=== PATIENT | female | born 1950 | race Caucasian/White ===

== ENCOUNTER 2016-12-04 15:20 | Observation (INO) | payer MEDICARE ==
[~2016-12-04] VITALS: Ht 165.1 cm; Wt 85.4 kg
[~2016-12-04 15:20] MED LIST: ACETAMINOPHEN325 M3 PO; ASPIRIN ADULT L81 M2 PO; AUGMENTIN1 TA1 PO; AZITHROMYCIN250 MG PO; BACTRIM DS 8001 TA1 PO; BACTRIM DS 8001 TAB PO; BUMETANIDE2 MG PO; BUMEX 1MG TAB1 MG PO; CEFDINIR 300MG300 MG PO; CHANTIX1 TAB PO; CIPRO 250MG TA250 MG; CLARITIN 10MG T10 MG PO; CORTEF5 MG PO; DETROL LA 2 MG C2 MG PO; DIAZEPAM5 M1 PO; DIFLUCAN 100MG100 MG PO; DIPHENHYDRAMINE25 M3 PO; DOCUSATE SODIU100 MG PO; DOXYCYCLINE HY100 M4 PO; DOXYCYCLINE100 M6 PO; DUONEB 3 MG/3 ML3 ML IH; ESCITALOPRAM10 M1 PO; FERROUS SULFATE27 MG PO; FLONASE 50 MCG16 GM; FLUCONAZOLE 10100 MG PO; GABAPENTIN300 MG PO; GOOD SENSE400 MG/5 M PO; HYDROCORTISONE5 MG; HYDROCORTISONE5 MG PO; IPRATROPIUM BROM3 M1 IH; IRON TABLETS325 MG PO; IRON324 MG PO; KLOR-CON M2020 ME1 PO; KLOR-CON M2020 MEQ PO; LINZESS145 MCG PO; LOPRESSOR 25MG.25 MG PO; LYRICA25 MG PO; LYRICA75 MG PO; MACROBID100 M3 PO; METOPROLOL25 MG PO; MIRALAX(PO17 GM/1 PA PO; MIRALAX17 GM/DOSE PO; MUCINEX ER600 MG PO; MUCUS ER600 MG PO; MYRBETRIQ50 MG PO; NYSTATIN 1 ML1 M1; NYSTATIN 150 M150 ML; NYSTATIN SU60 ML/BOT PO; NYSTATIN100000 U/M PO; ONE DAILY ESSEN1 TA2 PO; OXYBUTYNIN CHLO15 MG PO; OXYGEN XX; PERCOCET 10 MG1 EACH PO; PERCOCET 5/3251 EACH PO; PILOCARPINE HYDR5 MG PO; PREDNISONE 20MG20 MG PO; PROBIOTIC1 EAC3 PO; PROBIOTIC1 EAC5 PO; PROTONIX 40MG T40 MG PO; PROTONIX40 MG PO; RANITIDINE HCL150 MG PO; SERTRALINE 100100 MG PO; SINGULAIR10 MG PO; SPIRIVA HA1 PUFF/INH IH; SYMBICORT1 AE1 IH; TRAZODONE 50MG50 MG PO; TRAZODONE HCL50 MG PO; TRAZODONE100 MG PO; VITAMIN B COMPL1 SGL PO; VITAMIN D1000 IU PO; VITAMIN D31000 IU PO; ZOFRAN 8MG TABLE8 MG PO; ZOFRAN4 MG PO; ZOLOFT100 M1 PO; ZOLOFT100 MG PO
[2016-12-04 15:30] VITALS: BP 140/85
[2016-12-04] MEDS ORDERED: DOXYCYCLINE100 M1 PO (15:41)
--- NOTE | 2016-12-04 16:08 | Emergency Room Report ---
History of Present Illness Time Seen by [id number] Presenting Problem in Triage Pt arrived:Wheelchair Presenting Problem:PT STATES NAUSEA, DIZZY, SHORTNESS OF PAIN, CHEST PRESSURE, TROUBLE VOIDING. STATES RATTLE IN THROAT AT TIMES THAT MAKES HER COUGH. STATES VOMITING LAST NIGHT. STATES WHILE VOMITING, WATER CAME THROUGH HER NOSE. STATES SHE WAS EATING WHEN SHE VOMITED. STATES BACK PAIN FOR PAST SEVERAL DAYS. STATES BURNING WITH URINATION. STATES KNOT TO ABDOMEN THAT SHE NOTICED A COUPLE OF DAYS AGO. STATES O2 SATS HAVE BEEN LOW EVEN WITH O2 NC ON, STATES HANDS ARE ALWAYS COLD AND RARELY GIVE GOOD READING Onset of symptoms date/time:/ or onset unknown for:MEDICAL HX UNKNOWN Treatment Prior to Arrival: [employer] Provided by: Sepsis Risk Assessment: Temp: 98.7 B/P: 140/85 MAP: 103 Pulse: 63 Resp: 22 Recent fever? N Clinical Suspician of Infection? N Mental Status: 1 - Regular (Normal Baseline) Sepsis Risk:Low Sepsis Risk Have you (or family members/close friends) recently traveled outside the [place]? N If Yes, where/when: Have you had exposure to infectious disease within the past month? N TB? Other? Specify: Source patient Exam Limitations no limitations Comment 66 yr old female presents to ed with c/o of chest pressure, dizziness, no bm for 5 days, coughing up clear sputum, sob, home o2 dep and o2 sat low, and states 2 days ago noticed a knot on abd. Cardiac Chest Pain Chest pain indicative of cardiac Yes Timing/Duration constant Severity/Quality pressure Location substernal Chest Pain Radiation no radiation Activities at Onset none Severity mild Associated Symptoms dizziness, shortness of breath ALLERGIES Coded Allergies: Sulfa (Sulfonamide Antibiotics) (07/31/16) codeine (07/31/16) hydrocodone (07/31/16) metoclopramide (From REGLAN) (07/31/16) Home Medications Active Scripts NYSTATIN (Nystatin Susp 100,000 Units/Ml 60ML) 10 ML PO QID #120 ML Ref 3 Prov: 11/15/15 Reported Medications Bumetanide 2 MG PO DAILYP PRN DIURETIC Guaifenesin (Mucinex) 600 MG PO BID BUDESONIDE/FORMOTEROL FUMARATE (Symbicort 160-4.5 Mcg Inhaler) 2 PUFF IH BID Tiotropium [place] (Spiriva) 1 PUFF IH DAILY Potassium Chloride (Klor-Con M20) 20 MEQ PO DAILY Device (Oxygen (Concentrator)) 1 UNIT XX UD Ranitidine Hcl (Ranitidine 150MG) 75 MG PO QHS ONDANSETRON HCL (Zofran 4MG Tab) 4 MG PO Q6HP PRN NAUSEA AND VOMITING Multivitamin (One Daily Essential) 1 TAB PO DAILY Loratadine (Claritin 10MG) 10 MG PO DAILY SERTRALINE HCL (Zoloft) 100 MG PO DAILY Azithromycin (Azithromycin 250MG TAB) 250 MG PO Q OTHER DAY POLYETHYLENE GLYCOL (Miralax) 17 GM PO DAILY Acetaminophen 325 MG PO Q4HP PRN PAIN Docusate Sodium 100 MG PO DAILYP PRN CONSTIPATION Ferrous Sulfate (Iron Tablet) 325 MG PO DAILY Pregabalin (Lyrica 25MG) 25 MG PO BID Mirabegron (Myrbetriq) 50 MG PO DAILY Nystatin (Nystatin 1 Ml) 1 ML NA TID Bacillus Coagulans (Probiotic) 1 EACH PO DAILY TRAZODONE HCL (Trazodone HCl) 50 MG PO QHS Hydrocortisone 5 MG PO QAM Aspirin 81 MG PO DAILY CHOLECALCIFEROL (VITAMIN D3) (Vitamin D) 1,000 IUNITS PO DAILY Hydrocortisone 2.5 MG PO QHS PILOCARPINE HCL (Pilocarpine Hydrochloride) 5 MG PO TID Pantoprazole Sodium (Protonix 40MG TAB) 40 MG PO DAILY ALBUTEROL-IPRATROPIUM (Iprat-Albut 0.5-3(2.5) MG/3 Ml) 3 ML IH Q4HP PRN BREATHING Doxycycline Hyclate 100 MG PO BID ([place]) History Medical History General CAD? No Angina: No [place]: No Hypertension? Yes Hyperlipidemia? No CHF? Yes DVT? No PE? No COPD? Yes Asthma? Yes Anemia? No GERD? Yes Gastric ulcers? Yes GI Bleed? No Hernia? No Thyroid Problems? No Hypothyroidism? No CVA? No Seizures? No Diabetes? No Renal Insuffiency? No End Stage Renal Disease? No UTI? No Stones? No BPH? No GB Disease: Yes Nephritic Syndrome? No Asplenia? No Hepatitis? No Sickle Cell Disease? No Arthritis? Yes Migraines? No Cataracts? Yes Glaucoma? No MRSA? Yes HIV? No TB? No Anxiety? Yes Depression? Yes Cancer? No More? Yes Additional hx: ADRENAL INSUFFIENCY, IGG SUBCLASS Immunization Hx DT/Tetanus Unknown Flu 2016-17FSN Pneumonia Received In Past Surgical Hx Previous Surgery?Y Gallbladd Hysterect BACK X 2 PAIN PUMP BACK LEFT FOOT HEART CATH PORT A CATH LEFT HIP Family History Family Hx Diabetes No CAD No Hypertension No Hyperlipidemia No Cancer No TB Yes Social History Smoking Hx Smoker: Former Smoker Tobacco: No Alcohol Alcohol: No ([place]) Review of Systems All Other Systems Reviewed and Negative Constitutional denies no symptoms reported Eyes denies no symptoms reported ENT denies: no symptoms reported. Respiratory see HPI, cough, shortness of breath Cardiovascular see HPI Gastrointestinal see HPI, constipation Genitourinary see HPI, dysuria. Musculoskeletal no symptoms reported Skin no symptoms reported Psychiatric/Neurological no symptoms reported ([place]) Physical Exam Vital Signs Vital Signs Date Time Temp Pulse Resp B/P Pulse O2 O2 Flow FiO2 Ox Delivery Rate 12/04 1759 98.5 92 20 113/54 92 2 12/04 1722 98.7 88 20 137/86 93 12/04 1620 98.7 63 22 140/85 85 12/04 1530 98.7 63 22 140/85 85 3 - WBC >12,000 or <4,000 or 10% bands? 2 or more SIRS Criteria Met? B/P:140/85 MAP:103 Creatinine >2.0? UA output<0.5ml/kg/hr for 2 hrs? Platelet count >100,000? Lactate >2.0mmol/1? INR >1.2 or PTT > than 60 sec? Evidence of Organ Dysfunction? Provider documented clinical suspician of infection? N Sepsis Criteria Count: 1 Sepsis Risk: Low Sepsis Risk General Appearance normal appearance, no apparent distress Eye Exam - left eye normal exam, left eye PERRL Ear, Nose, Throat hearing grossly normal, normal ENT inspection Neck normal inspection, full range of motion Respiratory Status Yes: trachea midline, chest symmetrical, non tender chest, productive cough. No : respiratory distress. Lung Sounds left: rales. Cardiovascular normal exam, regular rate/rhythm Peripheral Pulses Pulses normal Yes Gastrointestinal normal bowel sounds, normal exam, non tender, soft, no guarding , no rebound, hernia Back normal inspection Extremities non-tender, normal range of motion Neurologic alert, normal exam, oriented x 3 ([place]) Stroke Score/Tx Stroke Evaluation Initial symptoms indicative of possible stroke? No Treatment Consideration Exit section? Yes ([place]) Suicide Risk Assessment Suicide Assessment indicated? No ([place]) Medical Decision Making LABS/Meds/Orders Pt receiving controlled substance in ED? No Comment PT REFUSED ABG Results/Orders Laboratory Tests 12/04/16 1805: Chlamy pneum (TEM-PCR) Pending, Adenovirus (PCR) Pending, B. pertussis DNA (PCR) Pending, Coronavirus OC43 (PCR) Pending, Coronavirus HKU1 (PCR) Pending, Coronavirus 229E (PCR) Pending, Coronavirus NL63 (PCR) Pending, Human Metapneumovirus Pending, Influenza A (H1) PCR Pending, Influ A (H1N1/09) PCR Pending, Influenza A (H3) PCR Pending, Influenza Type A (PCR) Pending, Influenza Type B (PCR) Pending, M. pneumoniae (PCR) Pending, Parainfluenza 1 (PCR) Pending , Parainfluenza 2 (PCR) Pending, Parainfluenza 3 (PCR) Pending, Parainfluenza 4 (PCR) Pending, RSV (PCR) Pending, Entero/Rhino (PCR) Pending 12/04/16 1730: Lactic Acid 0.3 L 12/04/16 1636: Sodium 136, Potassium 4.1, Chloride 99, Carbon Dioxide 34 H, BUN 23 H, Creatinine 1.5 H, Estimated Creat Clear 49 L, Estimated GFR (MDRD) 35 L, Glucose 93, Calcium 8.4 L, Total Bilirubin 0.4, AST 24, ALT 28, Alkaline Phosphatase 91, Creatine Kinase 96, CK-MB (CK-2) Rel Index 0.6, CK and CKMB Interp 0.6, Troponin I < 0.02, B-Natriuretic Peptide 33, Total Protein 7.1, Albumin 3.1 L, Globulin 4.0 H, Albumin/Globulin Ratio 0.8 L, WBC 9.1, RBC 3.41 L, Hgb 10.2 L, Hct 30.4 L, MCV 89.3, RDW 14.9, Plt Count 190, MPV 8.1, Gran % 83.2 H, Gran # 7.6, Lymphocytes % 10.9, Monocytes % 3.8, Eosinophils % 1.7, Basophils % 0.4, Lymphocytes # 1.0, Monocytes # 0.3, Eosinophils # 0.2, Basophils # 0.0, PUBS MCHC 33.4, MCH 29.8 Current Medication Orders Sig/[place] Start time Last Medication Dose Route Stop Time Status Admin Sodium Chloride 1,000 ML .STK-MED ONE 12/04 1740 DC IV Azithromycin 0 .STK-MED ONE 12/04 1739 DC IV Sodium Chloride 250 ML .STK-MED ONE 12/04 1738 DC IV Albuterol/Ipratropium 0 .STK-MED ONE 12/04 1735 DC INH Albuterol/Ipratropium 3 ML ONCE ONE 12/04 1730 DC 12/04 INH 12/04 1731 1742 Azithromycin 500 MG ONCE ONE 12/04 1730 AC 12/04 Sodium Chloride 250 ML IV 12/04 1829 1742 Ceftriaxone Sodium 1 GM ONCE ONE 12/04 1730 DC Sodium Chloride 50 ML IV 12/04 1759 Sodium Chloride 1,000 ML .[id number] 12/04 1730 AC 12/04 IV 12/05 0520 1742 Sodium Chloride 10 ML PRN PRN 12/04 1730 AC IV 12/05 1721 Sodium Chloride 10 ML PRN PRN 12/04 1600 AC IV 12/05 1559 Orders Procedure Date/time Status UPPER RESPIRATORY PANEL, PCR 12/04 1802 Active PHARMACIST CONSULT 12/04 1801 Active Decision to admit 12/04 1753 Active RT REQUEST DUONEB 12/04 1731 Active ARTERIAL BLOOD GAS REQUEST 12/04 1731 Active CULTURE, BLOOD 12/04 1721 Active LACTIC ACID 12/04 1721 Complete ABDOMEN-FLAT & UPRIGHT 12/04 1601 Active URINALYSIS/COMPLETE 12/04 1601 Active ELECTROCARDIOGRAM REQUEST 12/04 1600 Active CHEST(2 VIEWS-NOT PORTABLE) 12/04 1600 Active IV SALINE LOCK 12/04 1600 Active CBC WITH AUTO DIFF 12/04 1600 Complete CARDIAC ENZYMES 12/04 1600 Complete CHEM 12 PROFILE 12/04 1600 Complete BRAIN NATRIURETIC PEPTIDE 12/04 1600 Complete 12 LEAD EKG-SUE (INITIAL) 12/04 UNK Active XRAY/CT/US XRAY/CT/US XRAY chest XR interpretation by reviewed by me (PER TABITHA) Xray Results LEFT LOWER LOBE PNEUMONIA Consult MD Physician Consult Consult/PCP DISCUSSED ADMIT WITH CRISTOBAL Time Called 1755 Reason Admission Complicating Factors Factors/Issues Noted review of old records ([place]) Departure Departure Time of Disposition 175 Disposition Still a Patient Clinical Impression Primary Impression: Pneumonia Qualifiers: Pneumonia type: due to unspecified organism Laterality: left Lung location: lower lobe of lung Qualified Code: J18.9 - Pneumonia, unspecified organism Condition STABLE Referrals Curtis Philippe MD (Family) Patient Instructions Pneumonia-Adult Discharge Counseling Counseled pt/family regarding diagnosis, test results ED Critical Care Critical Care No If Critical Care minutes are documented, the time involved in the performance of seperately reportable procedures was not counted toward critical care time documented. I directly delivered medical care to this critically ill and/or injured patient. Timely evaluation and treatment was necessary to address the significant organ system(s) dysfunction present in this patient. Comments seen pt also, cristobal accepted pt, he recommends viral upper resp panel, vancomycin, insinuative spectrometer ([place]) at 1800 at 1824
[2016-12-04 16:45] LABS: HEMOGLOBIN 10.2 g/dL (12.2-16.2); LYMPH % 10.9 % (10-50.0)
[2016-12-04 17:15] LABS: BUN 23 mg/dL (7-18)
[2016-12-04 17:19] LABS: GFR (ESTIMATED) 35 ML/MIN (59-)
[2016-12-04 18:08] LABS: CORONAVIRUS 229E NOT DETECTED (NOT DETECTE); CORONAVIRUS HKU 1 NOT DETECTED (NOT DETECTE); CORONAVIRUS NL63 NOT DETECTED (NOT DETECTE); CORONAVIRUS OC43 NOT DETECTED (NOT DETECTE); RHINOVIRUS/ENTEROVIRUS NOT DETECTED (NOT DETECTE)
[2016-12-04 18:41] VITALS: BP 139/55
[2016-12-04 19:38] VITALS: BP 112/60
[2016-12-04 21:18] VITALS: BP 112/60
[2016-12-04 23:58] VITALS: BP 132/86
[2016-12-05] VITALS (7 sets, daily range): BP systolic 116–142; BP diastolic 54–81
--- NOTE | 2016-12-05 05:36 | RADIOLOGY REPORT PS360 ---
CHEST(2 VIEWS-NOT PORTABLE) HISTORY: chest pressure/hx chf COMPARISON: 10/26/2016 FINDINGS: Limited exam secondary to patient's inability to stand. Borderline cardiomegaly without failure.. Lung bansal are underpenetrated. No definite lobar consolidation or collapse. Chronic changes are present. Right subclavian Port-A-Cath noted. The tip is difficult the visualized and may be in the SVC.. No acute bony abnormalities. IMPRESSION: Limited exam. Chronic change with mild cardiomegaly. No definite acute finding
--- NOTE | 2016-12-05 05:38 | RADIOLOGY REPORT PS360 ---
ABDOMEN-FLAT UPRIGHT HISTORY: Constipation no bm for 5 days/poss abd hernia COMPARISON: None FINDINGS: Epidural stimulator device noted on the right. Nonspecific nonobstructive bowel gas pattern. Degenerative change lumbar spine with postsurgical change of the lumbar spine and left hip. No definite intestinal obstruction or urolithiasis. Prior ORIF left hip with fracture line still noted in the intertrochanteric region. Mild constipation noted IMPRESSION: No definite acute finding. Mild constipation. See above for detail
[2016-12-05 06:34] LABS: LYMPH # 1.9 K/mm3 (0.7-4.5); LYMPH % 27.2 % (10-50.0)
--- NOTE | 2016-12-05 06:53 | HISTORY AND PHYSICAL REPORT ---
Demographics: Admit date: 12/04/16 Chief complaint: Feeling weak PRIMARY DIAGNOSIS: suspected pneumonia Allergies: Coded Allergies: Sulfa (Sulfonamide Antibiotics) (07/31/16) codeine (07/31/16) hydrocodone (07/31/16) metoclopramide (From REGLAN) (07/31/16) History of present illness: History of present illness: 66-year-old female with history of chronic obstructive pulmonary disease and admissions for MRSA pneumonia presented to the emergency department on December 04 after 48 hours of increasing weakness. The patient reports her illness began on December 02 when she felt profoundly weak with associated nausea vomiting and headache. Patient also endorses some pressure in the chest as well as a gurgling sensation when she breathes and she thought she "had the rattle". Patient began taking a prescription of doxycycline. 48 hours later the patient was sitting at the dining room table eating when she didn't developed acute severe copious rhinorrhea along with increasing cough. She presented to the emergency department. In the emergency department workup was performed. Chest x- ray was felt to show a LEFT lower lobe pneumonia. Patient admits to cough with clear sputum production and occasional production of yellowish-green sputum. Past medical history: Family HX Family Hx Insignificant No Diabetes No CAD No Hypertension No Hyperlipidemia No Cancer No TB Yes Immunization HX DT/Tetanus Unknown Flu 2015-FSN Pneumonia Received In Past TB Test in last year Yes Result Negative General CAD? No Angina: No [place]: No Hypertension? Yes Hyperlipidemia? No CHF? Yes DVT? No PE? No COPD? Yes Asthma? Yes Anemia? No GERD? Yes Gastric ulcers? Yes GI Bleed? No Hernia? No Thyroid Problems? No Hypothyroidism? No CVA? No Seizures? No Diabetes? No Renal Insuffiency? No UTI? No Stones? No BPH? No GB Disease: Yes Nephritic Syndrome? No Asplenia? No Hepatitis? No Sickle Cell Disease? No Arthritis? Yes Migraines? No Cataracts? Yes Glaucoma? No MRSA? Yes HIV? No TB? No Anxiety? Yes Depression? Yes Cancer? No More? Yes Additional hx: ADRENAL INSUFFIENCY, IGG SUBCLASS Past Surgical HX Previous Surgery?Y Gallbladd Hysterect BACK X 2 PAIN PUMP BACK LEFT PELON HEART CATH PORT A CATH LEFT HIP Current home meds: Active Scripts NYSTATIN (Nystatin Susp 100,000 Units/Ml 60ML) 10 ML PO QID #120 ML Ref 3 Prov: 11/15/15 Reported Medications Bumetanide 2 MG PO DAILYP PRN DIURETIC Guaifenesin (Mucinex) 600 MG PO BID BUDESONIDE/FORMOTEROL FUMARATE (Symbicort 160-4.5 Mcg Inhaler) 2 PUFF IH BID Tiotropium [place] (Spiriva) 1 PUFF IH DAILY Potassium Chloride (Klor-Con M20) 20 MEQ PO DAILY Device (Oxygen (Concentrator)) 1 UNIT XX UD Ranitidine Hcl (Ranitidine 150MG) 75 MG PO QHS ONDANSETRON HCL (Zofran 4MG Tab) 4 MG PO Q6HP PRN NAUSEA AND VOMITING Multivitamin (One Daily Essential) 1 TAB PO DAILY Loratadine (Claritin 10MG) 10 MG PO DAILY SERTRALINE HCL (Zoloft) 100 MG PO DAILY Azithromycin (Azithromycin 250MG TAB) 250 MG PO Q OTHER DAY POLYETHYLENE GLYCOL (Miralax) 17 GM PO DAILY Acetaminophen 325 MG PO Q4HP PRN PAIN Docusate Sodium 100 MG PO DAILYP PRN CONSTIPATION Ferrous Sulfate (Iron Tablet) 325 MG PO DAILY Pregabalin (Lyrica 25MG) 25 MG PO BID Mirabegron (Myrbetriq) 50 MG PO DAILY Nystatin (Nystatin 1 Ml) 1 ML NA TID Bacillus Coagulans (Probiotic) 1 EACH PO DAILY TRAZODONE HCL (Trazodone HCl) 50 MG PO QHS Hydrocortisone 5 MG PO QAM Aspirin 81 MG PO DAILY CHOLECALCIFEROL (VITAMIN D3) (Vitamin D) 1,000 IUNITS PO DAILY Hydrocortisone 2.5 MG PO QHS PILOCARPINE HCL (Pilocarpine Hydrochloride) 5 MG PO TID Pantoprazole Sodium (Protonix 40MG TAB) 40 MG PO DAILY ALBUTEROL-IPRATROPIUM (Iprat-Albut 0.5-3(2.5) MG/3 Ml) 3 ML IH Q4HP PRN BREATHING Doxycycline Hyclate 100 MG PO BID Social Hx: Smoking HX Tobacco No Are you/the child exposed to second-hand smoke: No Alcohol Alcohol: No Hx of Drug Use Drug Use? No Patient's support system is fair Review of systems: Constitutional No: chills, fever. Respiratory cough, shortness of breath. Cardiovascular no symptoms reported Gastrointestinal/Abdominal see HPI Genitourinary no symptoms reported. Musculoskeletal no symptoms reported. Neurological Yes: no symptoms reported. Exam: Lab data for last 24 hours: Laboratory Tests 12/05/16 0620: Sodium 139, Potassium 4.0, Chloride 103, Carbon Dioxide 34 H, BUN 21 H, Creatinine 1.3 H, Estimated Creat Clear 55, Estimated GFR (MDRD) 41 L, Glucose 86, Calcium 8.4 L, WBC 7.0, RBC 3.34 L, Hgb 10.0 L, Hct 30.4 L, MCV 91.1, RDW 14.8, Plt Count 210, MPV 7.8, Gran % 64.1, Gran # 4.5, Lymphocytes % 27.2, Monocytes % 5.0, Eosinophils % 3.1, Basophils % 0.6, Lymphocytes # 1.9, Monocytes # 0.4, Eosinophils # 0.2, Basophils # 0.0, PUBS MCHC 32.8, MCH 29.9 12/04/16 1805: Chlamy pneum (TEM-PCR) NOT DETECTED, Adenovirus (PCR) NOT DETECTED, B. pertussis DNA (PCR) NOT DETECTED, Coronavirus OC43 (PCR) NOT DETECTED, Coronavirus HKU1 ( PCR) NOT DETECTED, Coronavirus 229E (PCR) NOT DETECTED, Coronavirus NL63 (PCR) NOT DETECTED, Human Metapneumovirus NOT DETECTED, Influenza A (H1) PCR NOT DETECTED, Influ A (H1N1/09) PCR NOT DETECTED, Influenza A (H3) PCR NOT DETECTED, Influenza Type A (PCR) NOT DETECTED, Influenza Type B (PCR) NOT DETECTED, M. pneumoniae (PCR) NOT DETECTED, Parainfluenza 1 (PCR) NOT DETECTED, Parainfluenza 2 (PCR) NOT DETECTED, Parainfluenza 3 (PCR) NOT DETECTED, Parainfluenza 4 (PCR) NOT DETECTED, RSV (PCR) NOT DETECTED, Entero/Rhino (PCR) NOT DETECTED 12/04/16 1730: Lactic Acid 0.3 L 12/04/16 1636: Sodium 136, Potassium 4.1, Chloride 99, Carbon Dioxide 34 H, BUN 23 H, Creatinine 1.5 H, Estimated Creat Clear 49 L, Estimated GFR (MDRD) 35 L, Glucose 93, Calcium 8.4 L, Total Bilirubin 0.4, AST 24, ALT 28, Alkaline Phosphatase 91, Creatine Kinase 96, CK-MB (CK-2) Rel Index 0.6, CK and CKMB Interp 0.6, Troponin I < 0.02, B-Natriuretic Peptide 33, Total Protein 7.1, Albumin 3.1 L, Globulin 4.0 H, Albumin/Globulin Ratio 0.8 L, WBC 9.1, RBC 3.41 L, Hgb 10.2 L, Hct 30.4 L, MCV 89.3, RDW 14.9, Plt Count 190, MPV 8.1, Gran % 83.2 H, Gran # 7.6, Lymphocytes % 10.9, Monocytes % 3.8, Eosinophils % 1.7, Basophils % 0.4, Lymphocytes # 1.0, Monocytes # 0.3, Eosinophils # 0.2, Basophils # 0.0, PUBS MCHC 33.4, MCH 29.8, Mycoplasma pneumon IgM NON-REACTIVE Microbiology 12/04 2329 SPUTUM: Sputum Culture - RES 12/04 2329 SPUTUM: Gram Stain - RES 12/04 1729 BLOOD: Anaerobic Blood Culture - RECD 12/04 1729 BLOOD: Aerobic Blood Culture - RECD 12/04 1729 BLOOD: Anaerobic Blood Culture - RECD 12/04 1729 BLOOD: Aerobic Blood Culture - RECD Admission vital signs: 1ST Vital Signs Result Date Time Pulse Ox 85 12/04 1530 B/P 140/85 12/04 1530 O2 Flow Rate 3 12/04 1530 Temp 98.7 12/04 1530 Pulse 63 12/04 1530 Resp 22 12/04 1530 O2 Delivery OXYGEN 12/04 1841 Additional information: Patient is awake and alert and oriented to person place and time this morning. She is sitting in her bed on her smart phone. ENT exam shows nasal cannula oxygen to be in place. Nasal mucosa is congested. Oropharynx is dry and without lesions. The neck is without lymphadenopathy. Lungs are diminished throughout but I do not detect any focal rales. Heart has regular rate and rhythm. Abdomen is soft nontender nondistended. Extremities are without edema. Plan: Problem List 1. Bacterial pneumonia Status Chronic 2. Chronic obstructive lung disease Status Chronic Plan: Patient has been admitted for suspected LEFT lower lobe pneumonia. In the past she has a history of MRSA so she will be covered for both community-acquired pneumonia and MRSA pneumonia. Chest x-ray was inconclusive and exam is consistent more with her chronic chronic obstructive pulmonary disease. Chest X ray will be repeated today with PA and lateral film. Continue antibiotics for now. Patient does not seem as sick as she has during past admissions. Patient should be observation admission from the beginning. Chest x-ray today will help significantly with decision-making. Sputum culture has been collected at 0665
--- NOTE | 2016-12-05 07:36 | PHARMACY CLINIC NOTE ---
Patient Demographics Patient Demographics Admission date: 12/04/16 Date: 12/05/16 Time: 0735 Allergies Coded Allergies: Sulfa (Sulfonamide Antibiotics) (07/31/16) codeine (07/31/16) hydrocodone (07/31/16) metoclopramide (From REGLAN) (07/31/16) HEIGHT- FT: 5 IN: 5.00 K.001 VTE General Information Labs: Laboratory Tests 12/05 12/04 0620 1636 Hematology Hgb (12.2 - 16.2 g/dL) 10.0 L 10.2 L Hct (37.0 - 47.0 %) 30.4 L 30.4 L Plt Count (142 - 424 K/mm3) 210 190 Disclaimer The following section includes nursing documentation that has been pulled in for pharmacy review. Patient's VTE score: 5 Patient's VTE Risk: LOW RISK Clinical trial participant? No VTE prophylaxis NQF [id number] VTE prophylaxis ordered? Yes Type of prophylaxis/treatment: LIEN at 0735
--- NOTE | 2016-12-05 08:36 | CONSULT NOTE ---
Pharmacokinetic Consult Date of consult: 12/05/16 Time of consult: 832 Referring provider: DR. CRUZ Reason for consult: VANCOMYCIN DOSING Allergies: Coded Allergies: Sulfa (Sulfonamide Antibiotics) (07/31/16) codeine (07/31/16) hydrocodone (07/31/16) metoclopramide (From REGLAN) (07/31/16) Home Medications: Active Scripts NYSTATIN (Nystatin Susp 100,000 Units/Ml 60ML) 10 ML PO QID #120 ML Ref 3 Prov: 11/15/15 Reported Medications Bumetanide 2 MG PO DAILYP PRN DIURETIC Guaifenesin (Mucinex) 600 MG PO BID BUDESONIDE/FORMOTEROL FUMARATE (Symbicort 160-4.5 Mcg Inhaler) 2 PUFF IH BID Tiotropium [place] (Spiriva) 1 PUFF IH DAILY Potassium Chloride (Klor-Con M20) 20 MEQ PO DAILY Device (Oxygen (Concentrator)) 1 UNIT XX UD Ranitidine Hcl (Ranitidine 150MG) 75 MG PO QHS ONDANSETRON HCL (Zofran 4MG Tab) 4 MG PO Q6HP PRN NAUSEA AND VOMITING Multivitamin (One Daily Essential) 1 TAB PO DAILY Loratadine (Claritin 10MG) 10 MG PO DAILY SERTRALINE HCL (Zoloft) 100 MG PO DAILY Azithromycin (Azithromycin 250MG TAB) 250 MG PO Q OTHER DAY POLYETHYLENE GLYCOL (Miralax) 17 GM PO DAILY Acetaminophen 325 MG PO Q4HP PRN PAIN Docusate Sodium 100 MG PO DAILYP PRN CONSTIPATION Ferrous Sulfate (Iron Tablet) 325 MG PO DAILY Pregabalin (Lyrica 25MG) 25 MG PO BID Mirabegron (Myrbetriq) 50 MG PO DAILY Nystatin (Nystatin 1 Ml) 1 ML NA TID Bacillus Coagulans (Probiotic) 1 EACH PO DAILY TRAZODONE HCL (Trazodone HCl) 50 MG PO QHS Hydrocortisone 5 MG PO QAM Aspirin 81 MG PO DAILY CHOLECALCIFEROL (VITAMIN D3) (Vitamin D) 1,000 IUNITS PO DAILY Hydrocortisone 2.5 MG PO QHS PILOCARPINE HCL (Pilocarpine Hydrochloride) 5 MG PO TID Pantoprazole Sodium (Protonix 40MG TAB) 40 MG PO DAILY ALBUTEROL-IPRATROPIUM (Iprat-Albut 0.5-3(2.5) MG/3 Ml) 3 ML IH Q4HP PRN BREATHING Doxycycline Hyclate 100 MG PO BID Height (feet): 5 Height (inches): 5.00 Medical History: CAD? No Angina: No VT: No Hypertension? Yes Hyperlipidemia? No CHF? Yes DVT? No PE? No COPD? Yes Asthma? Yes Anemia? No GERD? Yes Gastric ulcers? Yes GI Bleed? No Hernia? No Thyroid Problems? No Hypothyroidism? No CVA? No Seizures? No Diabetes? No Renal Insuffiency? No UTI? No Stones? No BPH? No GB Disease: Yes Nephritic Syndrome? No Asplenia? No Hepatitis? No Sickle Cell Disease? No Arthritis? Yes Migraines? No Cataracts? Yes Glaucoma? No MRSA? Yes HIV? No TB? No Anxiety? Yes Depression? Yes Cancer? No More? Yes Additional hx: ADRENAL INSUFFIENCY, IGG SUBCLASS Labs: Laboratory Tests 12/05/16 0620: Sodium 139, Potassium 4.0, Chloride 103, Carbon Dioxide 34 H, BUN 21 H, Creatinine 1.3 H, Estimated Creat Clear 55, Estimated GFR (MDRD) 41 L, Glucose 86, Calcium 8.4 L, WBC 7.0, RBC 3.34 L, Hgb 10.0 L, Hct 30.4 L, MCV 91.1, RDW 14.8, Plt Count 210, MPV 7.8, Gran % 64.1, Gran # 4.5, Lymphocytes % 27.2, Monocytes % 5.0, Eosinophils % 3.1, Basophils % 0.6, Lymphocytes # 1.9, Monocytes # 0.4, Eosinophils # 0.2, Basophils # 0.0, PUBS MCHC 32.8, MCH 29.9 12/04/16 1805: Chlamy pneum (TEM-PCR) NOT DETECTED, Adenovirus (PCR) NOT DETECTED, B. pertussis DNA (PCR) NOT DETECTED, Coronavirus OC43 (PCR) NOT DETECTED, Coronavirus HKU1 ( PCR) NOT DETECTED, Coronavirus 229E (PCR) NOT DETECTED, Coronavirus NL63 (PCR) NOT DETECTED, Human Metapneumovirus NOT DETECTED, Influenza A (H1) PCR NOT DETECTED, Influ A (H1N1/09) PCR NOT DETECTED, Influenza A (H3) PCR NOT DETECTED, Influenza Type A (PCR) NOT DETECTED, Influenza Type B (PCR) NOT DETECTED, M. pneumoniae (PCR) NOT DETECTED, Parainfluenza 1 (PCR) NOT DETECTED, Parainfluenza 2 (PCR) NOT DETECTED, Parainfluenza 3 (PCR) NOT DETECTED, Parainfluenza 4 (PCR) NOT DETECTED, RSV (PCR) NOT DETECTED, Entero/Rhino (PCR) NOT DETECTED 12/04/16 1730: Lactic Acid 0.3 L 12/04/16 1636: Sodium 136, Potassium 4.1, Chloride 99, Carbon Dioxide 34 H, BUN 23 H, Creatinine 1.5 H, Estimated Creat Clear 49 L, Estimated GFR (MDRD) 35 L, Glucose 93, Calcium 8.4 L, Total Bilirubin 0.4, AST 24, ALT 28, Alkaline Phosphatase 91, Creatine Kinase 96, CK-MB (CK-2) Rel Index 0.6, CK and CKMB Interp 0.6, Troponin I < 0.02, B-Natriuretic Peptide 33, Total Protein 7.1, Albumin 3.1 L, Globulin 4.0 H, Albumin/Globulin Ratio 0.8 L, WBC 9.1, RBC 3.41 L, Hgb 10.2 L, Hct 30.4 L, MCV 89.3, RDW 14.9, Plt Count 190, MPV 8.1, Gran % 83.2 H, Gran # 7.6, Lymphocytes % 10.9, Monocytes % 3.8, Eosinophils % 1.7, Basophils % 0.4, Lymphocytes # 1.0, Monocytes # 0.3, Eosinophils # 0.2, Basophils # 0.0, PUBS MCHC 33.4, MCH 29.8, Mycoplasma pneumon IgM NON-REACTIVE Microbiology 12/04 2329 SPUTUM: Sputum Culture - RES 12/04 2329 SPUTUM: Gram Stain - RES 12/04 1729 BLOOD: Anaerobic Blood Culture - RECD 12/04 1729 BLOOD: Aerobic Blood Culture - RECD 12/04 1729 BLOOD: Anaerobic Blood Culture - RECD 12/04 1729 BLOOD: Aerobic Blood Culture - RECD Problem List: 1. Acute febrile illness 2. Pneumonia Plan: BASED ON PATIENT FACTORS, RECOMMEND LOADING DOSE OF VANCOMCYIN 1750 MG, FOLLOWED BY VANCOMYCIN 1250 MG IV Q18H. PHARMACY WILL FOLLOW DAILY AND ADJUST APPROPRIATE. at 0836
--- NOTE | 2016-12-05 19:39 | RADIOLOGY REPORT PS360 ---
CHEST(2 VIEWS-NOT PORTABLE) HISTORY: Follow-up pneumonia F/UP PNEUMONIA COMPARISON: 12/04/2016 FINDINGS: The cardiomediastinal silhouette and pulmonary vascularity are within normal limits. Right IJ central venous catheter is in place with the tip in the region of the SVC. . Chronic parenchymal changes are once again noted in both lung bases and within the lingula. No acute finding with no significant change from an older exam of 02/04/2016. 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 IMPRESSION: Chronic parenchymal changes, no acute finding
[2016-12-06 00:21] VITALS: BP 110/58
[2016-12-06 03:58] VITALS: BP 122/62
--- NOTE | 2016-12-06 07:14 | ACUTE CARE PROGRESS NOTE (QUA) ---
Progress Notes Subjective Date 12/06/16 Time 0711 Note Patient has no complaints this morning other than nausea which is chronic. She denies dyspnea. Patient is awake and alert and playing on her smart phone. Lungs are distant but clear at the bases. She has a LEFT anterior rhonchi that clears with cough. Chest x-ray from yesterday reveals clear lung bases and no pneumonia. Patient be discharged home. I suspect what happened is when the patient had an episode of vomiting this caused some airway irritation and increasing cough with chest pressure. The patient does not have pneumonia. She may have had a brief chronic obstructive pulmonary disease exacerbation but at present is at baseline. She will be discharged home without any change in medications. Objective Findings Last VS-Temp:97.9 B/P:122/62 Pulse:82 Resp:20 SaO2:96 OXYGEN Last weight lbs:188 oz:4 K.389 Method:Bed Scales Assessment/Plan Problem List 1. Chronic obstructive lung disease Status: Chronic 2. Chronic obstructive pulmonary disease with acute exacerbation Patient condition Improving Plan: initiate discharge plan This inpt stay is expected to cross 2 MNs from start of care No at 0713
[2016-12-06] MEDS ORDERED: NYSTATIN SU60 ML/BOT PO (07:15)
--- NOTE | 2016-12-06 07:15 | Discharge Summary ---
Demographics Admit date: 12/04/16 Discharge date: 12/06/16 Discharge diagnoses Problem List 1. Chronic obstructive lung disease Status Chronic 2. Chronic obstructive pulmonary disease with acute exacerbation History of present illness History of present illness 66-year-old female with history of chronic obstructive pulmonary disease and admissions for MRSA pneumonia presented to the emergency department on December 04 after 48 hours of increasing weakness. The patient reports her illness began on December 02 when she felt profoundly weak with associated nausea vomiting and headache. Patient also endorses some pressure in the chest as well as a gurgling sensation when she breathes and she thought she "had the rattle". Patient began taking a prescription of doxycycline. 48 hours later the patient was sitting at the dining room table eating when she didn't developed acute severe copious rhinorrhea along with increasing cough. She presented to the emergency department. In the emergency department workup was performed. Chest x- ray was felt to show a LEFT lower lobe pneumonia. Patient admits to cough with clear sputum production and occasional production of yellowish-green sputum. Patient was admitted and placed on Rocephin, azithromycin, vancomycin to cover community-acquired pneumonia and her history of MRSA. Initial chest x-ray from the emergency department showed hazy LEFT lung base on the AP projection but lateral projection showed chronic changes with a clear base. Repeat chest x-ray was performed on December 05 and this showed no infiltrate and clear lung bases. Patient was observed for 48 hour for worsening symptoms. Her biggest complaint was nausea. After 48 hours the patient was considered to be at her baseline and was discharged home. She will not need any additional antibiotics Medications Medications: Discharge meds are as noted. Follow up Follow up in office in: none with: Curtis Philippe MD at [phone]
[2016-12-06] MEDS ORDERED: ZOFRAN4 MG PO (07:16)
[2016-12-06 08:15] VITALS: BP 122/61
[2016-12-06 09:00] VITALS: BP 122/61
[2016-12-06 11:59] VITALS: BP 125/73
[2016-12-06 12:44] VITALS: BP 125/73
== END 2016-12-06 13:50 | disposition home or self-care (01) ==
LOC: ER 15:20 → 2ND 18:08
PROVIDERS: General Practice
DX: J44.1 Chronic obstructive pulmonary disease with (acute) exacerbation (principal); I10 Essential (primary) hypertension; R06.02 Shortness of breath
CPT/HCPCS: G0238; G0378; J0456; J2405; J3370

== ENCOUNTER 2016-12-09 10:00 | Outpatient (CLI) | payer MEDICARE ==
[~2016-12-09 10:00] MED LIST changes: +DOXYCYCLINE100 M1 PO
[2016-12-09 11:30] VITALS: BP 137/60
[2016-12-09 12:00] VITALS: BP 127/62
[2016-12-09 12:30] VITALS: BP 133/63
[2016-12-09 13:00] VITALS: BP 130/53
[2016-12-09 13:15] VITALS: BP 121/61
== END 2016-12-09 13:20 | disposition home or self-care (01) ==
LOC: COP 10:00
DX: D80.1 Nonfamilial hypogammaglobulinemia (principal); D83.9 Common variable immunodeficiency, unspecified
CPT/HCPCS: J1459; J1642

== ENCOUNTER → 2017-01-04 | Outpatient (CLI) | payer MEDICARE ==
--- NOTE | 2017-01-05 18:31 | RADIOLOGY REPORT PS360 ---
DEXA DEXA SCAN.-BONE DENSITY STUDY HIPS AND LUMBAR SPINE HISTORY: Postmenopausal female 66-year-old postmenopausal female low calcium intake. Previous fractures of clavicle pelvis ankle and hip.. ORIF at left hip TECHNIQUE: DEXA scan hip and lumbar spine The most complete data summary and color graphic presentation of the today's ( and any prior ) DEXA findings are available in PACS. Definition and treatment guidelines included. COMPARISON: None listed no density study. Plain films abdomen December 04, 2016 are useful to evaluate lumbar spine anatomy LUMBAR SPINE: Overall normal bone density however there are prominent degenerative disc changes and prominent sclerosis particularly about the narrowed L3/4 disc. L4 vertebral body demonstrates the lowest T score -2.1 with BMD0.95 g/cm sq Overall mean lumbar L1-L4 T score 1.7 with BMD1.39 g/cm sq .. Incidentally note pronounced degenerative disc changes with sclerosis at L3/4 RIGHT HIP: Only right hip was studied Femoral neck density is best predictor of hip fracture risk . Right femoral neck demonstrates the lowest T score - -2.2 with BMD0.734 g/cm sq . Overall the mean Mean right hip T score 1.7 with BMD0.792 g/cm sq .. RADIUS: Distal third radius with T score -0.8. BMD 0.818 The distal q.d. with T score -1.1 reflecting mild osteopenia. Radius overall total -1.3 T score IMPRESSION------- osteopenia right hip, as well as L4 vertebral 1. LUMBAR SPINE: Overall normal bone density L-spine but I suspect is sclerosis about the narrowed L3/4 and L2/3 disc space may falsely increase bone density measurements. With this I would note that the lowest density L4 vertebral, T score = -2.1. Reflecting osteopenia 2. RIGHT HIP: Osteopenia right femoral neck T score = -2.2; Overall bone density with T score =. -1.7 reflects osteopenia 3. DISTAL RADIUS. Normal bone density at the distal third of radius where T score = -0.8 WHO criteria for post-menopausal, Women: Normal: T-score at or above -1 SD Osteopenia: T-score between -1 and -2.5 SD Osteoporosis: T-score at or below -2.5 SD Standard and Tc help her there is a
== END ==
LOC: RAD 13:00
DX: M81.0 Age-related osteoporosis without current pathological fracture (principal)

== ENCOUNTER → 2017-01-16 | Outpatient (CLI) | payer MEDICARE ==
[2017-01-16 10:37] VITALS: BP 136/85
[2017-01-16 10:52] VITALS: BP 133/74
[2017-01-16 12:23] VITALS: BP 131/61
== END ==
LOC: COP 10:00
DX: D80.1 Nonfamilial hypogammaglobulinemia (principal); D83.9 Common variable immunodeficiency, unspecified
CPT/HCPCS: J1459; J1642

== ENCOUNTER 2017-03-19 00:43 | Inpatient (IN) | payer MEDICARE ==
[~2017-03-19] VITALS: Ht 162.6 cm; Wt 87.2 kg
[2017-03-19] VITALS (16 sets, daily range): BP systolic 118–171; BP diastolic 49–105
[2017-03-19 01:18] LABS: HEMOGLOBIN 10.9 g/dL (12.2-16.2); LYMPH % 9.6 % (10-50.0)
[2017-03-19 01:19] LABS: LYMPH # 1.3 K/mm3 (0.7-4.5)
[2017-03-19 01:23] LABS: URINE BILIRUBIN - DIPSTICK NEGATIVE (NEG); URINE BLOOD NEGATIVE (NEG)
[2017-03-19 01:37] LABS: BUN 22 mg/dL (7-18); GFR (ESTIMATED) 35 ML/MIN (59-)
--- NOTE | 2017-03-19 01:39 | Emergency Room Report ---
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 N Clinical Suspician of Infection? N Mental Status: 2 - Mildly Altered Sepsis Risk:Severe Sepsis Risk Have you (or family members/close friends) recently traveled outside the [place]? N If Yes, where/when: Have you had exposure to infectious disease within the past month? N TB? Other? Specify: Source patient, RN notes reviewed, family, EMS, old records Exam Limitations no limitations Comment pt with acute sob with cough and with hx of lung disease- Cardiac Chest Pain Chest pain indicative of cardiac No Timing/Duration this evening Severity moderate ALLERGIES Coded Allergies: Sulfa (Sulfonamide Antibiotics) (12/09/16) codeine (12/09/16) hydrocodone (12/09/16) metoclopramide (From REGLAN) (12/09/16) Home Medications Active Scripts NYSTATIN (Nystatin Susp 100,000 Units/Ml 60ML) 10 ML PO QID #120 ML Ref 3 Prov: 12/06/16 ONDANSETRON HCL (Zofran 4MG Tab) 4 MG PO Q6HP PRN NAUSEA AND VOMITING #30 TAB Ref 1 Prov: 12/06/16 Reported Medications Bumetanide 2 MG PO DAILYP PRN DIURETIC Guaifenesin (Mucinex) 600 MG PO BID BUDESONIDE/FORMOTEROL FUMARATE (Symbicort 160-4.5 Mcg Inhaler) 2 PUFF IH BID Tiotropium [place] (Spiriva) 1 PUFF IH DAILY Potassium Chloride (Klor-Con M20) 20 MEQ PO DAILY Device (Oxygen (Concentrator)) 1 UNIT XX UD Ranitidine Hcl (Ranitidine 150MG) 75 MG PO QHS Multivitamin (One Daily Essential) 1 TAB PO DAILY Loratadine (Claritin 10MG) 10 MG PO DAILY SERTRALINE HCL (Zoloft) 100 MG PO DAILY POLYETHYLENE GLYCOL (Miralax) 17 GM PO DAILY Acetaminophen 325 MG PO Q4HP PRN PAIN Docusate Sodium 100 MG PO DAILYP PRN CONSTIPATION Ferrous Sulfate (Iron Tablet) 325 MG PO DAILY Pregabalin (Lyrica 25MG) 25 MG PO BID Mirabegron (Myrbetriq) 50 MG PO DAILY Bacillus Coagulans (Probiotic) 1 EACH PO DAILY TRAZODONE HCL (Trazodone HCl) 50 MG PO QHS Hydrocortisone 5 MG PO QAM Aspirin 81 MG PO DAILY CHOLECALCIFEROL (VITAMIN D3) (Vitamin D) 1,000 IUNITS PO DAILY Hydrocortisone 2.5 MG PO QHS PILOCARPINE HCL (Pilocarpine Hydrochloride) 5 MG PO TID Pantoprazole Sodium (Protonix 40MG TAB) 40 MG PO DAILY ALBUTEROL-IPRATROPIUM (Iprat-Albut 0.5-3(2.5) MG/3 Ml) 3 ML IH Q4HP PRN BREATHING History Medical History General CAD? No Angina: No OR: No Hypertension? Yes Hyperlipidemia? No CHF? Yes DVT? No PE? No COPD? Yes Asthma? Yes Anemia? No GERD? Yes Gastric ulcers? Yes GI Bleed? No Hernia? No Thyroid Problems? No Hypothyroidism? No CVA? No Seizures? No Diabetes? No Renal Insuffiency? No End Stage Renal Disease? No UTI? No Stones? No BPH? No GB Disease: Yes Nephritic Syndrome? No Asplenia? No Hepatitis? No Sickle Cell Disease? No Arthritis? Yes Migraines? No Cataracts? Yes Glaucoma? No MRSA? Yes HIV? No TB? No Anxiety? Yes Depression? Yes Cancer? No More? Yes Additional hx: ADRENAL INSUFFIENCY, IGG SUBCLASS Immunization Hx DT/Tetanus Unknown Flu [id number] Pneumonia Received In Past Surgical Hx Previous Surgery?Y [place] Hysterect BACK X 2 PAIN PUMP BACK LEFT PELON HEART CATH PORT A CATH LEFT HIP Family History Family Hx Diabetes No CAD No Hypertension No Hyperlipidemia No Cancer No TB Yes Social History Smoking Hx Smoker: Former Smoker Tobacco: No Alcohol Alcohol: No Drugs none Review of Systems All Other Systems Reviewed and Negative Constitutional see HPI, fever, malaise Eyes denies drainage ENT denies: ear discharge, epistaxis. Respiratory cough, shortness of breath, denies wheezing Cardiovascular denies chest pain, denies palpitations, denies syncope Gastrointestinal denies abdominal pain, denies diarrhea, denies vomiting Genitourinary denies: dysuria, frequency, hesitancy, hematuria. Musculoskeletal denies back pain, denies joint pain, denies joint swelling, denies neck pain Skin denies rash Psychiatric/Neurological denies headache, denies seizure Physical Exam Vital Signs Vital Signs Date Time Temp Pulse Resp B/P Pulse O2 O2 Flow FiO2 Ox Delivery Rate 03/19 0138 102.8 122 32 97 03/19 0114 34 70 3 03/19 0045 123 34 171/105 70 3 - WBC >12,000 or <4,000 or 10% bands? 2 or more SIRS Criteria Met? B/P:171/105 MAP:127 Creatinine >2.0? UA output<0.5ml/kg/hr for 2 hrs? Platelet count >100,000? Lactate >2.0mmol/1? INR >1.2 or PTT > than 60 sec? Evidence of Organ Dysfunction? Provider documented clinical suspician of infection? N Sepsis Criteria Count: 2 Sepsis Risk: Severe Sepsis Risk General Appearance no apparent distress Eye Exam - bilateral eye PERRL, bilateral eye EOMI Ear, Nose, Throat no gross changes Neck non-tender Respiratory Status No: respiratory distress. Lung Sounds bilateral: decreased breath sounds, rhonchi. 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 No Results/Orders Laboratory Tests 03/19/17114: Urine Color YELLOW, Urine Appearance CLEAR, Urine pH 5.5, Ur Specific [place] 1.020, Urine Protein NEGATIVE, Urine Ketones NEGATIVE, Urine Blood NEGATIVE, Urine Nitrate NEGATIVE, Urine Bilirubin NEGATIVE, Urine Urobilinogen 0.2, Ur Leukocyte Esterase NEGATIVE, Amorphous Sediment TRACE, Urine Glucose NEGATIVE 03/19/1756: Lactic Acid 0.9 03/19/1756: Sodium 139, Potassium 4.5, Chloride 103, Carbon Dioxide 34 H, BUN 22 H, Creatinine 1.5 H, Estimated Creat Clear 46 L, Estimated GFR (MDRD) 35 L, Glucose 116 H, Calcium 8.3 L, Total Bilirubin 0.3, AST 22, ALT 25, Alkaline Phosphatase 109, Creatine Kinase 142, CK-MB (CK-2) Rel Index 0.8, CK and CKMB Interp 1.1, Troponin I < 0.02, B-Natriuretic Peptide 24, Total Protein 7.7, Albumin 3.4, Globulin 4.3 H, Albumin/Globulin Ratio 0.8 L, WBC 14.0 H, RBC 3.65 L, Hgb 10.9 L, Hct 32.7 L, MCV 89.6, RDW 16.5, Plt Count 192, Gran % 87.3 H, Gran # 12.3 H, Total Counted 100, Lymphocytes % 9.6 L, Monocytes % 3.1, Neutrophils 81 H, Band Neutrophils 8, Lymphocytes (Manual) 7 L, Lymphocytes # 1.3, Monocytes (Manual) 4, Monocytes # 0.4, Platelet Estimate NORMAL, Polychromasia 1+, Hypochromasia 1+, Poikilocytosis 1+, Rouleaux 1+, PUBS MCHC 33.3, MCH 29.9 Current Medication Orders Sig/[place] Start time Last Medication Dose Route Stop Time Status Admin Azithromycin 500 MG ONCE ONE 03/19 200 AC Sodium Chloride 250 ML IV 03/19 025 Ceftriaxone Sodium 1 GM ONCE ONE 03/19 200 AC Sodium Chloride 50 ML IV 03/19 022 Methylprednisolone 125 MG ONCE ONE 03/19 200 DC Sodium Succinate IV 03/19 201 Miscellaneous 1 EACH CONSULT PHARMACY 03/19 200 AC Information * 03/19 1358 Vancomycin HCl 1,500 MG ONCE ONE 03/19 200 CKDr Sodium Chloride 250 ML IV 03/19 0359 Acetaminophen 650 MG ONCE ONE 03/19 011 DC 03/19 MD 03/19 0116 0120 Sodium Chloride 10 ML PRN PRN 03/19 011 AC IV 03/20 0104 Acetaminophen 0 .STK-MED ONE 03/19 105 DC MD Orders Procedure Date/time Status ARTERIAL BLOOD GAS REQUEST 03/19 105 Active CHEST-PORTABLE 03/19 105 Active IV SALINE LOCK 03/19 105 Active URINARY CATHETER INSERT 03/19 105 Active CULTURE, BLOOD 04/23 0105 Active URINALYSIS/COMPLETE 03/19 105 Complete LACTIC ACID 03/19 105 Complete COMPLETE METABOLIC PANEL 03/19 105 Complete CBC WITH AUTO DIFF 03/19 105 Complete CARDIAC ENZYMES 03/19 105 Complete BRAIN NATRIURETIC PEPTIDE 03/19 105 Complete DIFFERENTIAL-WBC 03/19 0057 Complete CM/EKG CM/rack carrier Rhythm Sinus Tachycardia EKG non-spec. ST/Twave chgs XRAY/CT/US XRAY/CT/US XRAY chest XR interpretation by reviewed by me Xray Results abnormal (rt lower lobe ) Departure Departure Time of Disposition 0203 Disposition Still a Patient Clinical Impression Primary Impression: CAP (community acquired pneumonia) Secondary Impressions: Anemia Qualifiers: Anemia type: unspecified type Qualified Code: D64.9 - Anemia, unspecified COPD (chronic obstructive pulmonary disease) Qualifiers: COPD type: unspecified COPD Qualified Code: J44.9 - Chronic obstructive pulmonary disease, unspecified Renal insufficiency Respiratory failure Qualifiers: Chronicity: acute on chronic Respiratory failure complication: hypercapnia Qualified Code: J96.22 - Acute and chronic respiratory failure with hypercapnia Condition STABLE Referrals Curtis Philippe MD (Family) discussed with dr cristobal SOTO Critical Care Critical Care No at 0206
[2017-03-19 01:42] LABS: NEUTROPHILS 81 % (42-76)
[2017-03-19 06:40] LABS: HEMOGLOBIN 10.6 g/dL (12.2-16.2); LYMPH # 0.6 K/mm3 (0.7-4.5); LYMPH % 3.1 % (10-50.0)
--- NOTE | 2017-03-19 07:30 | HISTORY AND PHYSICAL REPORT ---
Demographics: Admit date: 03/19/17 Chief complaint: Shortness of breath PRIMARY DIAGNOSIS: COMMUINITY AQUARIED PNUMONIA Allergies: Coded Allergies: Sulfa (Sulfonamide Antibiotics) (12/09/16) codeine (12/09/16) hydrocodone (12/09/16) metoclopramide (From REGLAN) (12/09/16) History of present illness: History of present illness: 66-year-old female with severe chronic obstructive pulmonary disease presented to the emergency department after acute onset of dyspnea with cough yesterday evening. When patient arrived in the emergency department she was found to be febrile with a rectal temperature of 102. Workup was begun and suspicious for RIGHT lower lobe pneumonia. Patient was started on IV antibiotics including vancomycin due to her history of MRSA. Patient was obtunded and started on BiPAP. Blood gas revealed mild hypercapnia not too far from her baseline. Nursing staff reports on arrival to the floor the patient could not really answer questions but would open her eyes to her name. During my interview the patient does make attempts to talk but the BiPAP makes it difficult to communicate. This morning patient is resting on BiPAP. She is more alert than on admission. She reports cough. Cough began acutely and she denies choking on any food yesterday evening. She does admit she has a hard time swallowing with sensation as if food gets stuck in the lower chest. Past medical history: Family HX Family Hx Insignificant No Diabetes No CAD No Hypertension No Hyperlipidemia No Cancer No TB Yes Immunization HX DT/Tetanus Unknown Flu 2015-FSN Pneumonia Received In Past TB Test in last year No General CAD? No Angina: No [place]: No Hypertension? Yes Hyperlipidemia? No CHF? Yes DVT? No PE? No COPD? Yes Asthma? Yes Anemia? No GERD? Yes Gastric ulcers? Yes GI Bleed? No Hernia? No Thyroid Problems? No Hypothyroidism? No CVA? No Seizures? No Diabetes? No Renal Insuffiency? No UTI? No Stones? No BPH? No GB Disease: Yes Nephritic Syndrome? No Asplenia? No Hepatitis? No Sickle Cell Disease? No Arthritis? Yes Migraines? No Cataracts? Yes Glaucoma? No MRSA? Yes HIV? No TB? No Anxiety? Yes Depression? Yes Cancer? No More? Yes Additional hx: ADRENAL INSUFFIENCY, IGG SUBCLASS Past Surgical HX Previous Surgery?Y [place] Hysterect BACK X 2 PAIN PUMP BACK LEFT P[facility] HEART CATH PORT A CATH LEFT HIP Current home meds: Active Scripts NYSTATIN (Nystatin Susp 100,000 Units/Ml 60ML) 10 ML PO QID #120 ML Ref 3 Prov: 12/06/16 ONDANSETRON HCL (Zofran 4MG Tab) 4 MG PO Q6HP PRN NAUSEA AND VOMITING #30 TAB Ref 1 Prov: 12/06/16 Reported Medications Bumetanide 2 MG PO DAILYP PRN DIURETIC Guaifenesin (Mucinex) 600 MG PO BID BUDESONIDE/FORMOTEROL FUMARATE (Symbicort 160-4.5 Mcg Inhaler) 2 PUFF IH BID Tiotropium [place] (Spiriva) 1 PUFF IH DAILY Potassium Chloride (Klor-Con M20) 20 MEQ PO DAILY Device (Oxygen (Concentrator)) 1 UNIT XX UD Ranitidine Hcl (Ranitidine 150MG) 75 MG PO QHS Multivitamin (One Daily Essential) 1 TAB PO DAILY Loratadine (Claritin 10MG) 10 MG PO DAILY SERTRALINE HCL (Zoloft) 100 MG PO DAILY POLYETHYLENE GLYCOL (Miralax) 17 GM PO DAILY Acetaminophen 325 MG PO Q4HP PRN PAIN Docusate Sodium 100 MG PO DAILYP PRN CONSTIPATION Ferrous Sulfate (Iron Tablet) 325 MG PO DAILY Pregabalin (Lyrica 25MG) 25 MG PO BID Mirabegron (Myrbetriq) 50 MG PO DAILY Bacillus Coagulans (Probiotic) 1 EACH PO DAILY TRAZODONE HCL (Trazodone HCl) 50 MG PO QHS Hydrocortisone 5 MG PO QAM Aspirin 81 MG PO DAILY CHOLECALCIFEROL (VITAMIN D3) (Vitamin D) 1,000 IUNITS PO DAILY Hydrocortisone 2.5 MG PO QHS PILOCARPINE HCL (Pilocarpine Hydrochloride) 5 MG PO TID Pantoprazole Sodium (Protonix 40MG TAB) 40 MG PO DAILY ALBUTEROL-IPRATROPIUM (Iprat-Albut 0.5-3(2.5) MG/3 Ml) 3 ML IH Q4HP PRN BREATHING Social Hx: Smoking HX Tobacco No Type Cigarettes Packs/day N/A Are you/the child exposed to second-hand smoke: No Alcohol Alcohol: No Hx of Drug Use Drug Use? No Patien't marital status is single Patient's support system is good Review of systems: Constitutional fever, malaise, weakness. Respiratory cough, shortness of breath, SOB with excertion, stridor, wheezing. Cardiovascular No chest pain, No edema, No palpitations, No syncope Gastrointestinal/Abdominal poor appetite Genitourinary frequency. Musculoskeletal back pain, joint pain. Neurological Yes: no symptoms reported. Exam: Lab data for last 24 hours: Laboratory Tests 03/19/17 0605: Sodium 140, Potassium 4.8, Chloride 105, Carbon Dioxide 32, BUN 22 H, Creatinine 1.5 H, Estimated Creat Clear 52, Estimated GFR (MDRD) 35 L, Glucose 139 H, Calcium 8.0 L, Creatine Kinase 145, CK-MB (CK-2) Rel Index 1.4, CK and CKMB Interp 2.0, Troponin I 0.03, WBC 18.6 H, RBC 3.55 L, Hgb 10.6 L, Hct 32.8 L, MCV 92.4, RDW 14.1, Plt Count 205, MPV 5.0 L, Gran % 95.0 H, Gran # 17.6 H, Lymphocytes % 3.1 L, Monocytes % 1.5 L, Eosinophils % 0.3, Basophils % 0.1, Lymphocytes # 0.6 L, Monocytes # 0.3, Eosinophils # 0.1, Basophils # 0.0 , PUBS MCHC 32.4, MCH 30.0 03/19/17 0400: Creatine Kinase 129, CK-MB (CK-2) Rel Index 1.2, CK and CKMB Interp 1.6, Troponin I 0.03 03/19/17 0209: Influenza Type A Ag NOT DETECTED, Influenza Type B Ag NOT DETECTED 03/19/17 0115: Urine Color YELLOW, Urine Appearance CLEAR, Urine pH 5.5, Ur Specific [place] 1.020, Urine Protein NEGATIVE, Urine Ketones NEGATIVE, Urine Blood NEGATIVE, Urine Nitrate NEGATIVE, Urine Bilirubin NEGATIVE, Urine Urobilinogen 0.2, Ur Leukocyte Esterase NEGATIVE, Amorphous Sediment TRACE, Urine Glucose NEGATIVE 03/19/17 0057: Lactic Acid 0.9 03/19/17 005: Sodium 139, Potassium 4.5, Chloride 103, Carbon Dioxide 34 H, BUN 22 H, Creatinine 1.5 H, Estimated Creat Clear 46 L, Estimated GFR (MDRD) 35 L, Glucose 116 H, Calcium 8.3 L, Total Bilirubin 0.3, AST 22, ALT 25, Alkaline Phosphatase 109, Creatine Kinase 142, CK-MB (CK-2) Rel Index 0.8, CK and CKMB Interp 1.1, Troponin I < 0.02, B-Natriuretic Peptide 24, Total Protein 7.7, Albumin 3.4, Globulin 4.3 H, Albumin/Globulin Ratio 0.8 L, WBC 14.0 H, RBC 3.65 L, Hgb 10.9 L, Hct 32.7 L, MCV 89.6, RDW 16.5, Plt Count 192, Gran % 87.3 H, Gran # 12.3 H, Total Counted 100, Lymphocytes % 9.6 L, Monocytes % 3.1, Neutrophils 81 H, Band Neutrophils 8, Lymphocytes (Manual) 7 L, Lymphocytes # 1.3, Monocytes (Manual) 4, Monocytes # 0.4, Platelet Estimate NORMAL, Polychromasia 1+, Hypochromasia 1+, Poikilocytosis 1+, Rouleaux 1+, PUBS MCHC 33.3, MCH 29.9, Mycoplasma pneumon IgM NON-REACTIVE Microbiology 03/19 57 BLOOD: Anaerobic Blood Culture - RECD 03/19 57 BLOOD: Aerobic Blood Culture - RECD 03/19 57 BLOOD: Anaerobic Blood Culture - RECD 03/19 57 BLOOD: Aerobic Blood Culture - RECD Admission vital signs: 1ST Vital Signs Result Date Time Pulse Ox 70 03/19 0045 B/P 171/105 03/19 45 O2 Flow Rate 3 03/19 0045 Pulse 123 03/19 004 Resp 34 03/19 004 Temp 102.8 03/19 0138 O2 Delivery OXYGEN 03/19 025 Vital Signs Date Time Temp Pulse Resp B/P Pulse O2 O2 Flow FiO2 Ox Delivery Rate 03/19 0705 107 24 145/59 96 OXYGEN 03/19 0600 110 22 156/70 99 OXYGEN 03/19 0558 3 03/19 0500 110 22 140/65 100 OXYGEN 03/19 0400 116 22 151/68 100 OXYGEN 3 03/19 0300 98.0 118 22 143/63 100 OXYGEN 3 03/19 0257 98.0 116 20 131/62 95 OXYGEN 3 03/19 0252 119 03/19 0252 100 OXYGEN 03/19 0238 102.8 119 26 150/64 03/19 0220 102.8 119 26 100 03/19 0218 119 26 150/64 100 03/19 0138 102.8 122 32 97 03/19 0114 34 70 3 03/19 0045 123 34 171/105 70 3 Additional information: Patient is resting in the bed with BiPAP on. She opens her eyes to vocal stimulus. She tries to answer questions in short answers can be understood. She has audible rhonchi that can be heard standing at bedside. Oropharynx is dry from BiPAP. Neck is without carotid bruits or lymphadenopathy. Lungs have diffuse rhonchi with expiratory wheezes. Heart has a regular rate and rhythm. Abdomen is soft. Extremities are without edema. Plan: Problem List 1. 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 Chronic obstructive lung disease Status Chronic 4. Anemia 5. Respiratory failure 6. Renal insufficiency 7. Sinus tachycardia Plan: 1. Patient's been admitted and placed on antibiotics. I have adjusted antibiotics to cover sepsis. Patient will be on Rocephin and gentamicin. Collect sputum culture. Continue aerosols. She will be given stress dose steroids. 2. Patient will be given essential home medications. I'm going to hold her diuretics and potassium supplement as well as her pantoprazole. 3. Wean BiPAP as tolerated which I think will be today. Await blood cultures
--- NOTE | 2017-03-19 08:57 | CONSULT NOTE ---
Pharmacokinetic Consult Date of consult: 03/19/17 Time of consult: 854 Referring provider: DR. CRUZ Reason for consult: VANCOMYCIN AND GENTAMICIN DOSING Allergies: Coded Allergies: Sulfa (Sulfonamide Antibiotics) (12/09/16) codeine (12/09/16) hydrocodone (12/09/16) metoclopramide (From REGLAN) (12/09/16) Home Medications: Active Scripts NYSTATIN (Nystatin Susp 100,000 Units/Ml 60ML) 10 ML PO QID #120 ML Ref 3 Prov: 12/06/16 ONDANSETRON HCL (Zofran 4MG Tab) 4 MG PO Q6HP PRN NAUSEA AND VOMITING #30 TAB Ref 1 Prov: 12/06/16 Reported Medications Bumetanide 2 MG PO DAILYP PRN DIURETIC Guaifenesin (Mucinex) 600 MG PO BID BUDESONIDE/FORMOTEROL FUMARATE (Symbicort 160-4.5 Mcg Inhaler) 2 PUFF IH BID Tiotropium [place] (Spiriva) 1 PUFF IH DAILY Potassium Chloride (Klor-Con M20) 20 MEQ PO DAILY Device (Oxygen (Concentrator)) 1 UNIT XX UD Ranitidine Hcl (Ranitidine 150MG) 75 MG PO QHS Multivitamin (One Daily Essential) 1 TAB PO DAILY Loratadine (Claritin 10MG) 10 MG PO DAILY SERTRALINE HCL (Zoloft) 100 MG PO DAILY POLYETHYLENE GLYCOL (Miralax) 17 GM PO DAILY Acetaminophen 325 MG PO Q4HP PRN PAIN Docusate Sodium 100 MG PO DAILYP PRN CONSTIPATION Ferrous Sulfate (Iron Tablet) 325 MG PO DAILY Pregabalin (Lyrica 25MG) 25 MG PO BID Mirabegron (Myrbetriq) 50 MG PO DAILY Bacillus Coagulans (Probiotic) 1 EACH PO DAILY TRAZODONE HCL (Trazodone HCl) 50 MG PO QHS Hydrocortisone 5 MG PO QAM Aspirin 81 MG PO DAILY CHOLECALCIFEROL (VITAMIN D3) (Vitamin D) 1,000 IUNITS PO DAILY Hydrocortisone 2.5 MG PO QHS PILOCARPINE HCL (Pilocarpine Hydrochloride) 5 MG PO TID Pantoprazole Sodium (Protonix 40MG TAB) 40 MG PO DAILY ALBUTEROL-IPRATROPIUM (Iprat-Albut 0.5-3(2.5) MG/3 Ml) 3 ML IH Q4HP PRN BREATHING Height (feet): 5 Height (inches): 4.00 Medical History: CAD? No Angina: No [place]: No Hypertension? Yes Hyperlipidemia? No CHF? Yes DVT? No PE? No COPD? Yes Asthma? Yes Anemia? No GERD? Yes Gastric ulcers? Yes GI Bleed? No Hernia? No Thyroid Problems? No Hypothyroidism? No CVA? No Seizures? No Diabetes? No Renal Insuffiency? No UTI? No Stones? No BPH? No GB Disease: Yes Nephritic Syndrome? No Asplenia? No Hepatitis? No Sickle Cell Disease? No Arthritis? Yes Migraines? No Cataracts? Yes Glaucoma? No MRSA? Yes HIV? No TB? No Anxiety? Yes Depression? Yes Cancer? No More? Yes Additional hx: ADRENAL INSUFFIENCY, IGG SUBCLASS Labs: Laboratory Tests 03/19/17 0605: Sodium 140, Potassium 4.8, Chloride 105, Carbon Dioxide 32, BUN 22 H, Creatinine 1.5 H, Estimated Creat Clear 52, Estimated GFR (MDRD) 35 L, Glucose 139 H, Calcium 8.0 L, Creatine Kinase 145, CK-MB (CK-2) Rel Index 1.4, CK and CKMB Interp 2.0, Troponin I 0.03, WBC 18.6 H, RBC 3.55 L, Hgb 10.6 L, Hct 32.8 L, MCV 92.4, RDW 14.1, Plt Count 205, MPV 5.0 L, Gran % 95.0 H, Gran # 17.6 H, Lymphocytes % 3.1 L, Monocytes % 1.5 L, Eosinophils % 0.3, Basophils % 0.1, Lymphocytes # 0.6 L, Monocytes # 0.3, Eosinophils # 0.1, Basophils # 0.0 , PUBS MCHC 32.4, MCH 30.0 03/19/17 0400: Creatine Kinase 129, CK-MB (CK-2) Rel Index 1.2, CK and CKMB Interp 1.6, Troponin I 0.03 03/19/17 0209: Influenza Type A Ag NOT DETECTED, Influenza Type B Ag NOT DETECTED 03/19/17 0115: Urine Color YELLOW, Urine Appearance CLEAR, Urine pH 5.5, Ur Specific [place] 1.020, Urine Protein NEGATIVE, Urine Ketones NEGATIVE, Urine Blood NEGATIVE, Urine Nitrate NEGATIVE, Urine Bilirubin NEGATIVE, Urine Urobilinogen 0.2, Ur Leukocyte Esterase NEGATIVE, Amorphous Sediment TRACE, Urine Glucose NEGATIVE 03/19/1756: Lactic Acid 0.9 03/19/1756: Sodium 139, Potassium 4.5, Chloride 103, Carbon Dioxide 34 H, BUN 22 H, Creatinine 1.5 H, Estimated Creat Clear 46 L, Estimated GFR (MDRD) 35 L, Glucose 116 H, Calcium 8.3 L, Total Bilirubin 0.3, AST 22, ALT 25, Alkaline Phosphatase 109, Creatine Kinase 142, CK-MB (CK-2) Rel Index 0.8, CK and CKMB Interp 1.1, Troponin I < 0.02, B-Natriuretic Peptide 24, Total Protein 7.7, Albumin 3.4, Globulin 4.3 H, Albumin/Globulin Ratio 0.8 L, WBC 14.0 H, RBC 3.65 L, Hgb 10.9 L, Hct 32.7 L, MCV 89.6, RDW 16.5, Plt Count 192, Gran % 87.3 H, Gran # 12.3 H, Total Counted 100, Lymphocytes % 9.6 L, Monocytes % 3.1, Neutrophils 81 H, Band Neutrophils 8, Lymphocytes (Manual) 7 L, Lymphocytes # 1.3, Monocytes (Manual) 4, Monocytes # 0.4, Platelet Estimate NORMAL, Polychromasia 1+, Hypochromasia 1+, Poikilocytosis 1+, Rouleaux 1+, PUBS MCHC 33.3, MCH 29.9, Mycoplasma pneumon IgM NON-REACTIVE Microbiology 03/19 57 BLOOD: Anaerobic Blood Culture - RECD 03/19 57 BLOOD: Aerobic Blood Culture - RECD 03/19 57 BLOOD: Anaerobic Blood Culture - RECD 03/19 57 BLOOD: Aerobic Blood Culture - RECD Plan: BASED ON PATIENT'S FACTORS, RECOMMEND STARTING WITH GENTAMICIN 360 MG Q48H AND VANCOMYCIN 1500 MG Q24H AT THIS TIME. PATIENT'S SRCR ELEVATED AT THIS TIME. WILL CONTINUE TO MONITOR THIS AND MAY NEED TO ADJUST FURTHER DOSES DUE TO THIS. PHARMACY WILL FOLLOW DAILY AND ADJUST APPROPRIATE. REJI MURO PHARMD at [phone]
--- NOTE | 2017-03-19 09:02 | RADIOLOGY REPORT PS360 ---
CHEST-PORTABLE HISTORY: Shortness of breath sob ORDERING PHYSICIAN: Lorena Adler MD PATIENT AGE: 66 years COMPARISON: 12/05/2016 FINDINGS: The cardiomediastinal silhouette and pulmonary vascularity are within normal limits. There are low lung volumes with underpenetration of the lower lobes. Minimal atelectatic changes present in the right midlung. Cannot exclude pathology in the lung bases. Upright PA and lateral chest may be of further value. Prior osteotomy of the distal clavicle on the right. Right subclavian Mediport catheter is in place with the tip in region of SVC. IMPRESSION: Low lung volume with underpenetration with mild right midlung atelectasis or infiltrate.
--- NOTE | 2017-03-19 09:30 | PHARMACY CLINIC NOTE ---
Patient Demographics Patient Demographics Admission date: 03/19/17 Date: 03/19/17 Time: 09 Allergies Coded Allergies: Sulfa (Sulfonamide Antibiotics) (12/09/16) codeine (12/09/16) hydrocodone (12/09/16) metoclopramide (From REGLAN) (12/09/16) HEIGHT- FT: 5 IN: 4.00 K.561 VTE General Information Labs: Laboratory Tests 03/19 03/19 0605 0057 Hematology Hgb (12.2 - 16.2 g/dL) 10.6 L 10.9 L Hct (37.0 - 47.0 %) 32.8 L 32.7 L Plt Count (142 - 424 K/mm3) 205 192 Disclaimer The following section includes nursing documentation that has been pulled in for pharmacy review. Patient's VTE score: 7 Patient's VTE Risk: MOD RISK Clinical trial participant? No VTE prophylaxis [id number] [id number] VTE prophylaxis ordered? Yes Type of prophylaxis/treatment: LIEN at 0929
[2017-03-20] VITALS (11 sets, daily range): BP systolic 89–153; BP diastolic 53–76
--- NOTE | 2017-03-20 07:16 | ACUTE CARE PROGRESS NOTE (QUA) ---
Progress Notes Subjective Date 03/20/17 Time 0714 Note Patient is in no distress this morning. She was weaned to a Ventimask yesterday afternoon. She has remained on that throughout the night. O2 sats remained in the mid to high 90s. Patient provides additional history of her admission. Patient states she felt poorly after eating supper and then had multiple episodes of vomiting and that is the last thing she recalls before she became aware she was in the hospital. Chest x-ray showed small RIGHT middle lobe infiltrate. She is awake and alert and conversant. No labored breathing. Lungs have expiratory wheezes and some inspiratory rhonchi. Heart has a regular rate and rhythm. Abdomen is soft with palpable pain pump in the RIGHT lower quadrant. Objective Findings Last VS-Temp:98.5 B/P:133/76 Pulse:89 Resp:18 SaO2:97 OXYGEN Last weight lbs:206 oz:8 K.667 Method:Bed Scales Laboratory Tests 03/19/17 2230: Random Gentamicin 4.2 03/19/17 1415: Random Gentamicin 10.2 H Microbiology 03/19 1915 SPUTUM: Sputum Culture - RES 03/19 1915 SPUTUM: Gram Stain - RES Assessment/Plan Problem List 1. 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 Chronic obstructive lung disease Status: Chronic 4. Anemia Qualifiers: Anemia type: unspecified type Qualified Code: D64.9 - Anemia, unspecified 5. Respiratory failure Qualifiers: Chronicity: acute on chronic Respiratory failure complication: hypercapnia Qualified Code: J96.22 - Acute and chronic respiratory failure with hypercapnia 6. Renal insufficiency 7. Sinus tachycardia Patient condition Improving Plan: continue current care This inpt stay is expected to cross 2 MNs from start of care Yes at 0716
[2017-03-20 08:48] LABS: CORONAVIRUS 229E NOT DETECTED (NOT DETECTE); CORONAVIRUS HKU 1 NOT DETECTED (NOT DETECTE); CORONAVIRUS NL63 NOT DETECTED (NOT DETECTE); CORONAVIRUS OC43 NOT DETECTED (NOT DETECTE); RHINOVIRUS/ENTEROVIRUS NOT DETECTED (NOT DETECTE)
--- NOTE | 2017-03-20 09:29 | CONSULT NOTE ---
Pharmacokinetic Consult Date of consult: 03/20/17 Time of consult: 925 Referring provider: DR. CRUZ Reason for consult: GENTAMICIN LEVELS Allergies: Coded Allergies: Sulfa (Sulfonamide Antibiotics) (12/09/16) codeine (12/09/16) hydrocodone (12/09/16) metoclopramide (From REGLAN) (12/09/16) Home Medications: Active Scripts NYSTATIN (Nystatin Susp 100,000 Units/Ml 60ML) 10 ML PO QID #120 ML Ref 3 Prov: 12/06/16 ONDANSETRON HCL (Zofran 4MG Tab) 4 MG PO Q6HP PRN NAUSEA AND VOMITING #30 TAB Ref 1 Prov: 12/06/16 Reported Medications Bumetanide 2 MG PO DAILYP PRN DIURETIC Guaifenesin (Mucinex) 600 MG PO BID BUDESONIDE/FORMOTEROL FUMARATE (Symbicort 160-4.5 Mcg Inhaler) 2 PUFF IH BID Tiotropium [place] (Spiriva) 1 PUFF IH DAILY Potassium Chloride (Klor-Con M20) 20 MEQ PO DAILY Device (Oxygen (Concentrator)) 1 UNIT XX UD Ranitidine Hcl (Ranitidine 150MG) 75 MG PO QHS Multivitamin (One Daily Essential) 1 TAB PO DAILY Loratadine (Claritin 10MG) 10 MG PO DAILY SERTRALINE HCL (Zoloft) 100 MG PO DAILY POLYETHYLENE GLYCOL (Miralax) 17 GM PO DAILY Acetaminophen 325 MG PO Q4HP PRN PAIN Docusate Sodium 100 MG PO DAILYP PRN CONSTIPATION Ferrous Sulfate (Iron Tablet) 325 MG PO DAILY Pregabalin (Lyrica 25MG) 25 MG PO BID Mirabegron (Myrbetriq) 50 MG PO DAILY Bacillus Coagulans (Probiotic) 1 EACH PO DAILY TRAZODONE HCL (Trazodone HCl) 50 MG PO QHS Hydrocortisone 5 MG PO QAM Aspirin 81 MG PO DAILY CHOLECALCIFEROL (VITAMIN D3) (Vitamin D) 1,000 IUNITS PO DAILY Hydrocortisone 2.5 MG PO QHS PILOCARPINE HCL (Pilocarpine Hydrochloride) 5 MG PO TID Pantoprazole Sodium (Protonix 40MG TAB) 40 MG PO DAILY ALBUTEROL-IPRATROPIUM (Iprat-Albut 0.5-3(2.5) MG/3 Ml) 3 ML IH Q4HP PRN BREATHING Height (feet): 5 Height (inches): 4.00 Medical History: CAD? No Angina: No [place]: No Hypertension? Yes Hyperlipidemia? No CHF? Yes DVT? No PE? No COPD? Yes Asthma? Yes Anemia? No GERD? Yes Gastric ulcers? Yes GI Bleed? No Hernia? No Thyroid Problems? No Hypothyroidism? No CVA? No Seizures? No Diabetes? No Renal Insuffiency? No UTI? No Stones? No BPH? No GB Disease: Yes Nephritic Syndrome? No Asplenia? No Hepatitis? No Sickle Cell Disease? No Arthritis? Yes Migraines? No Cataracts? Yes Glaucoma? No MRSA? Yes HIV? No TB? No Anxiety? Yes Depression? Yes Cancer? No More? Yes Additional hx: ADRENAL INSUFFIENCY, IGG SUBCLASS Labs: Laboratory Tests 03/19/17 2230: Random Gentamicin 4.2 03/19/17 1415: Random Gentamicin 10.2 H Microbiology 03/19 1915 SPUTUM: Sputum Culture - RES 03/19 1915 SPUTUM: Gram Stain - RES Problem List: 1. CAP (community acquired pneumonia) Plan: GENTAMICIN LEVELS 4-HOUR POST INFUSION: 10.2 MCG/ML CALCULATED PEAK: 14.23 MCG/ML 12-HOUR POST INFUSION: 4.2 MCG/ML CALCULATED TROUGH: 0.08 MCG/ML BASED ON LEVELS AND PATIENT FACTORS, RECOMMEND CONTINUING GENTAMICIN 360 MG IV Q48H. PHARMACY WILL CONTINUE TO MONITOR DAILY AND ADJUST APPROPRIATE. at 0928
[2017-03-21] VITALS (9 sets, daily range): BP systolic 122–155; BP diastolic 58–79
--- NOTE | 2017-03-21 07:12 | ACUTE CARE PROGRESS NOTE (QUA) ---
Progress Notes Subjective Date 03/21/17 Time 0708 Note Patient feels like her breathing has improved but has multiple additional issues to address. She is not had a bowel movement. We gave her a suppository last night which was ineffective. She would like to get out of bed She feels like it would improve her ability to cough and produce sputum. She did mention yesterday difficulty with sensation as if foods were getting stuck at times. She was supposed to have seen a top dyeing machine tender recently but states that appointment was canceled and never rescheduled. She does not have some of her home medicines because her family has not brought them in. She is comfortable resting with nasal cannula. Oropharynx is moist. Lungs have anterior wheezes with expiration. Diminished aeration posteriorly at the bases. Heart has regular rate and rhythm. Abdomen is soft and nontender. She has a palpable mass at the base of the RIGHT breast inferior medially. Extremities are without edema. Objective Findings Last VS-Temp:98.7 B/P:155/73 Pulse:79 Resp:16 SaO2:97 OXYGEN Last weight lbs:206 oz:8 K.667 Method:Bed Scales Laboratory Tests 03/20/17 0840: Chlamy pneum (TEM-PCR) NOT DETECTED, Adenovirus (PCR) NOT DETECTED, B. pertussis DNA (PCR) NOT DETECTED, Coronavirus OC43 (PCR) NOT DETECTED, Coronavirus HKU1 ( PCR) NOT DETECTED, Coronavirus 229E (PCR) NOT DETECTED, Coronavirus NL63 (PCR) NOT DETECTED, Human Metapneumovir PCR NOT DETECTED, Influenza A (H1) PCR NOT DETECTED, Influ A (H1N1/09) PCR NOT DETECTED, Influenza A (H3) PCR NOT DETECTED, Influenza Type A (PCR) NOT DETECTED, Influenza Type B (PCR) NOT DETECTED, M. pneumoniae (PCR) NOT DETECTED, Parainfluenza 1 (PCR) NOT DETECTED, Parainfluenza 2 (PCR) NOT DETECTED, Parainfluenza 3 (PCR) NOT DETECTED, Parainfluenza 4 (PCR) NOT DETECTED, RSV (PCR) NOT DETECTED, Entero/Rhino (PCR) NOT DETECTED Reviewed: vital signs, nursing notes Assessment/Plan Problem List 1. 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 Chronic obstructive lung disease Status: Chronic 4. Anemia Qualifiers: Anemia type: unspecified type Qualified Code: D64.9 - Anemia, unspecified 5. Respiratory failure Qualifiers: Chronicity: acute on chronic Respiratory failure complication: hypercapnia Qualified Code: J96.22 - Acute and chronic respiratory failure with hypercapnia 6. Renal insufficiency 7. Sinus tachycardia Patient condition Improving Plan: continue current care, pulmonary consult today, repeat chest x-ray, get patient out of bed to chair This inpt stay is expected to cross 2 MNs from start of care Yes Antibiotic Stewardship (2) Current Culture Results Microbiology 03/19 1915 SPUTUM: Sputum Culture - RES 03/19 1915 SPUTUM: Gram Stain - RES 03/19 57 BLOOD: Anaerobic Blood Culture - RECD 03/19 57 BLOOD: Aerobic Blood Culture - RECD Infxn that will respond? Yes Right drug,dose,and route? No More targeted antbx? Yes How long atbx needed? 7 at 0711
[2017-03-21 08:50] LABS: HEMOGLOBIN 9.6 g/dL (12.2-16.2); LYMPH # 0.7 K/mm3 (0.7-4.5); LYMPH % 9.5 % (10-50.0)
[2017-03-21 10:32] LABS: NEUTROPHILS 83 % (42-76)
--- NOTE | 2017-03-21 10:34 | CONSULT NOTE ---
Consult Note Note: Reason for consultation: Pneumonia Requested by: Dr. Philippe Chief complaint: "I got so sick after dinner." History of present illness: Ms. Haynes is a 66-year-old woman who has severe chronic obstructive pulmonary disease, immunoglobulin G subclass deficiency and bronchiectasis complicated by chronic respiratory failure. When I last saw her in November, she was suffering a mild exacerbation and she has had several over the last year or so despite gammaglobulin replacement therapy. She also suffers from chronic pain and has a pain pump which delivers morphine and Marcaine. Since then, she's had the pain pump changed (which was necessary). She leads a very sedentary lifestyle and is breathless with ordinary activities of daily living. She sleeps fitfully because of pain. Normally, she takes Spiriva and Symbicort and DuoNeb about 4 times a day. She was in her usual state of health when she sat down to dinner on March 18. Soon after, however, she developed severe nausea and vomited at least once. She had no significant abdominal pain that she recalls and no diarrhea. Over the last year, she has frequently vomited after eating for no apparent reason. This time, however, she developed a fever over 102 and became delirious. She was brought here in the patient resource coordinator of March 19 and, because of a hazy density over the RIGHT lung on the chest x-ray, she's been treated for possible bacterial pneumonia. She has a history of MRSA and empirical therapy for this organism was started. She was delirious for at least a day and required BiPAP. She has begun to recover now and is able to give a fairly clear history until the point where she became delirious. Now, she has a persistent cough but is having difficulty expectorating anything. Her voice is hoarse. She's had no further fever and no chills. She's had no diarrhea or abdominal pain. It is a little uncomfortable where the pain pump was inserted in the upper abdomen. Despite the pump, she still has chronic pain in most of her joints and her back. I reviewed her past medical and family history. I reviewed her current and home medications. Social history: She is still living with her daughter and I met her son-in-law, who is on active duty in the , when I came into her room. There is a 7- year-old at home who had strep throat a couple of weeks ago. No one else has been ill. Ms. Haynes has her own room in that house. Apart from diffuse aches and pains, dry mouth and constipation, the rest of a 14 point review of systems is negative except for what mentioned above. On physical examination, Ms. Haynes is a chronically ill appearing, overweight woman who is lying in bed at a 30 degree angle. She appears mildly breathless but is articulate and able to give a fairly clear history except for the period when she was delirious. Vital signs: Blood pressure 132/65, temperature 98.4 (102.8 early in the admission), pulse 85, respiratory rate 22 and oxygen saturation 93 percent on 3 L/m. HEENT: EOMs full; sclerae clear; conjunctivae pale; external nares unremarkable; oropharynx shows poor dentition and no mucosal lesions. Neck: No JVD; no adenopathy. Chest: Dorsal kyphosis; hyperresonance by percussion bilaterally; distant breath sounds with a prolonged expiratory phase of ventilation and faint, scattered, low pitched expiratory wheezes. Heart: Muffled heart sounds; regular rhythm Abdomen: Protuberant; bowel sounds diminished; pain pump inserted just under the RIGHT upper quadrant. No surrounding erythema but there is some tenderness. I cannot feel her liver or spleen. Skin: Ecchymoses on forearms; no rash. Neurological: Grossly intact Musculoskeletal: No digna arthritis Extremities: No clubbing. She does seem to have generalized edema which is especially evident in her fingers. On the recent chest x-ray, there is evidence of air trapping but I see no definite infiltrate, however. I compared it to a film from December 05. There is a tunneled catheter which ends in the superior vena cava. Her white blood cell count was slightly elevated and she is anemic as before. This is apparently anemia of chronic disease. A sputum culture is pending and blood cultures are thus far negative. A viral respiratory battery is negative. Assessment and plan: Ms. Haynes has severe chronic obstructive pulmonary disease complicated by chronic respiratory failure and developed a febrile illness a few days ago causing delirium. She is recovering slowly but the cause of this is not clear to me. She will have another chest x-ray today to see whether or not a definite infiltrate is present. She does seem to be fluid overloaded and I would recommend diuresis. I think she would benefit from receiving vest therapy as well. I will follow-up with her after discharge. Thank you for the opportunity to participate in her care. at 8900
--- NOTE | 2017-03-21 12:03 | RADIOLOGY REPORT PS360 ---
CHEST(2 VIEWS-NOT PORTABLE) HISTORY: Shortness of breath progress study ORDERING PHYSICIAN: Curtis Philippe MD PATIENT AGE: 66 years COMPARISON: 03/19/2017 FINDINGS: Cardiomegaly with pulmonary venous congestion consistent with CHF which is worse on today's exam. Right subclavian Mediport catheter is present with the tip in region of SVC. There are small bilateral pleural effusions. Atelectatic changes are present in the right perihilar region. Atelectatic changes are also present in one bases. Severe degenerative changes are present in the shoulders. IMPRESSION: 1. Worsening CHF. 2. Right perihilar atelectasis with mild bibasilar atelectasis and small bilateral effusions.
[2017-03-22] VITALS (7 sets, daily range): BP systolic 130–148; BP diastolic 65–74
[2017-03-22 07:15] LABS: HEMOGLOBIN 9.9 g/dL (12.2-16.2); LYMPH # 2.1 K/mm3 (0.7-4.5); LYMPH % 28.1 % (10-50.0)
--- NOTE | 2017-03-22 07:29 | ACUTE CARE PROGRESS NOTE (QUA) ---
Progress Notes Subjective Date 03/22/17 Time 0728 Note Patient complains of nausea this morning. Nursing reports overnight she had some Pepsi and almost immediately became nauseous. Patient continues to complain of sensation as if food is getting stuck in the epigastrium. Sputum culture has returned this morning and is growing MRSA. Patient is awake and alert. There is no respiratory distress. Nasal cannula oxygen is in place. Lungs have diffuse rhonchi with faint expiratory wheezes. Heart has a regular rate and rhythm. Start vancomycin which the patient will need for one week. Restart patient's home hydrocortisone Objective Findings Last VS-Temp:98.6 B/P:133/67 Pulse:72 Resp:18 SaO2:91 OXYGEN Last weight lbs:203 oz:0 K.079 Method:Bed Scales Assessment/Plan Problem List 1. 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 Chronic obstructive lung disease Status: Chronic 4. Anemia Qualifiers: Anemia type: unspecified type Qualified Code: D64.9 - Anemia, unspecified 5. Respiratory failure Qualifiers: Chronicity: acute on chronic Respiratory failure complication: hypercapnia Qualified Code: J96.22 - Acute and chronic respiratory failure with hypercapnia 6. Renal insufficiency 7. Sinus tachycardia Patient condition Stable Plan: continue current care, make medication changes This inpt stay is expected to cross 2 MNs from start of care Yes Antibiotic Stewardship (2) Infxn that will respond? Yes Right drug,dose,and route? No More targeted antbx? Yes at 0740
--- NOTE | 2017-03-22 11:08 | CONSULT NOTE ---
Pharmacokinetic Consult Date of consult: 03/22/17 Time of consult: 1106 Referring provider: DR. CRUZ Reason for consult: VANCOMYCIN DOSING Allergies: Coded Allergies: Sulfa (Sulfonamide Antibiotics) (12/09/16) codeine (12/09/16) hydrocodone (12/09/16) metoclopramide (From REGLAN) (12/09/16) Home Medications: Active Scripts NYSTATIN (Nystatin Susp 100,000 Units/Ml 60ML) 10 ML PO QID #120 ML Ref 3 Prov: 12/06/16 ONDANSETRON HCL (Zofran 4MG Tab) 4 MG PO Q6HP PRN NAUSEA AND VOMITING #30 TAB Ref 1 Prov: 12/06/16 Reported Medications Bumetanide 2 MG PO DAILYP PRN DIURETIC Guaifenesin (Mucinex) 600 MG PO BID BUDESONIDE/FORMOTEROL FUMARATE (Symbicort 160-4.5 Mcg Inhaler) 2 PUFF IH BID Tiotropium [place] (Spiriva) 1 PUFF IH DAILY Potassium Chloride (Klor-Con M20) 20 MEQ PO DAILY Device (Oxygen (Concentrator)) 1 UNIT XX UD Ranitidine Hcl (Ranitidine 150MG) 75 MG PO QHS Multivitamin (One Daily Essential) 1 TAB PO DAILY Loratadine (Claritin 10MG) 10 MG PO DAILY SERTRALINE HCL (Zoloft) 100 MG PO DAILY POLYETHYLENE GLYCOL (Miralax) 17 GM PO DAILY Acetaminophen 325 MG PO Q4HP PRN PAIN Docusate Sodium 100 MG PO DAILYP PRN CONSTIPATION Ferrous Sulfate (Iron Tablet) 325 MG PO DAILY Pregabalin (Lyrica 25MG) 25 MG PO BID Mirabegron (Myrbetriq) 50 MG PO DAILY Bacillus Coagulans (Probiotic) 1 EACH PO DAILY TRAZODONE HCL (Trazodone HCl) 50 MG PO QHS Hydrocortisone 5 MG PO QAM Aspirin 81 MG PO DAILY CHOLECALCIFEROL (VITAMIN D3) (Vitamin D) 1,000 IUNITS PO DAILY Hydrocortisone 2.5 MG PO QHS PILOCARPINE HCL (Pilocarpine Hydrochloride) 5 MG PO TID Pantoprazole Sodium (Protonix 40MG TAB) 40 MG PO DAILY ALBUTEROL-IPRATROPIUM (Iprat-Albut 0.5-3(2.5) MG/3 Ml) 3 ML IH Q4HP PRN BREATHING Height (feet): 5 Height (inches): 4.00 Medical History: CAD? No Angina: No IN: No Hypertension? Yes Hyperlipidemia? No CHF? Yes DVT? No PE? No COPD? Yes Asthma? Yes Anemia? No GERD? Yes Gastric ulcers? Yes GI Bleed? No Hernia? No Thyroid Problems? No Hypothyroidism? No CVA? No Seizures? No Diabetes? No Renal Insuffiency? No UTI? No Stones? No BPH? No GB Disease: Yes Nephritic Syndrome? No Asplenia? No Hepatitis? No Sickle Cell Disease? No Arthritis? Yes Migraines? No Cataracts? Yes Glaucoma? No MRSA? Yes HIV? No TB? No Anxiety? Yes Depression? Yes Cancer? No More? Yes Additional hx: ADRENAL INSUFFIENCY, IGG SUBCLASS Labs: Laboratory Tests 03/22/17 0625: Sodium 141, Potassium 3.1 L, Chloride 102, Carbon Dioxide 35 H, BUN 20 H, Creatinine 1.1 H, Estimated Creat Clear 71, Estimated GFR (MDRD) 49 L, Glucose 97, Calcium 8.2 L, WBC 7.4, RBC 3.33 L, Hgb 9.9 L, Hct 29.8 L, MCV 89.5, RDW 13.9, Plt Count 223, MPV 5.2 L, Gran % 63.9, Gran # 4.7, Lymphocytes % 28.1, Monocytes % 5.4, Eosinophils % 2.2, Basophils % 0.4, Lymphocytes # 2.1, Monocytes # 0.4, Eosinophils # 0.2, Basophils # 0.0, PUBS MCHC 33.2, MCH 29.7 Problem List: 1. MRSA pneumonia Plan: GENTAMICIN AND CEFTRIAXONE WAS DISCONTINUED AND VANCOMYCIN IS BEING STARTED BASED ON CULTURE RESULTS. RECOMMEND VANCOMYCIN 1500 MG IV Q24H. PHARMACY WILL FOLLOW DAILY AND ADJUST APPROPRIATE. at 1107
--- NOTE | 2017-03-22 14:41 | RADIOLOGY REPORT PS360 ---
UGI SERIES W/O AIR HISTORY: Postprandial pain and nausea esophageal dysphagia ORDERING PHYSICIAN: Curtis Philippe MD PATIENT AGE: 66 years COMPARISON: None FINDINGS: Study is somewhat limited due to patient's inability to stand upright. The esophagus, stomach, and duodenum have an unremarkable appearance. No hernias, ulcerations, or masses are evident. No reflux evident during the exam. Patient has a pain in place. FLUOROSCOPY TIME : 58 seconds. IMPRESSION: Negative single contrast upper GI
[2017-03-23 00:10] VITALS: BP 148/65
[2017-03-23 04:00] VITALS: BP 114/67
[2017-03-23 07:14] LABS: HEMOGLOBIN 10.4 g/dL (12.2-16.2); LYMPH # 1.8 K/mm3 (0.7-4.5); LYMPH % 23.4 % (10-50.0)
--- NOTE | 2017-03-23 07:28 | ACUTE CARE PROGRESS NOTE (QUA) ---
Progress Notes Subjective Date 03/23/17 Time 0724 Note patient has no new complaints this morning. She continues to have nausea. Upper gastrointestinal performed yesterday was negative for any ulcers or hiatal hernia. Cough and shortness of breath are improving. She is awake and alert. Lungs are faint rhonchi are heard anteriorly. No wheezes. Heart has regular rate and rhythm. Extremities have trace edema Continue vancomycin. Dosing ingestants will be made per pharmacy protocol. [facility] has told they would not accept her due to her MRSA. She would benefit from swing bed for her IV antibiotics Objective Findings Last VS-Temp:98.6 B/P:114/67 Pulse:78 Resp:18 SaO2:92 OXYGEN Last weight lbs:203 oz:0 K.080 Method:Bed Scales Laboratory Tests 03/23/17 0608: Sodium 140, Potassium 3.3 L, Chloride 102, Carbon Dioxide 36 H, BUN 15, Creatinine 1.0, Estimated Creat Clear 78, Estimated GFR (MDRD) 55 L, Glucose 101, Calcium 8.5, WBC 7.8, RBC 3.50 L, Hgb 10.4 L, Hct 31.2 L, MCV 89.0, RDW 13.7, Plt Count 245, MPV 4.9 L, Gran % 67.2, Gran # 5.3, Lymphocytes % 23.4, Monocytes % 5.6, Eosinophils % 3.6, Basophils % 0.3, Lymphocytes # 1.8, Monocytes # 0.4, Eosinophils # 0.3, Basophils # 0.0, PUBS MCHC 33.4, MCH 29.7 Assessment/Plan Problem List 1. 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 Chronic obstructive lung disease Status: Chronic 4. Anemia Qualifiers: Anemia type: unspecified type Qualified Code: D64.9 - Anemia, unspecified 5. Respiratory failure Qualifiers: Chronicity: acute on chronic Respiratory failure complication: hypercapnia Qualified Code: J96.22 - Acute and chronic respiratory failure with hypercapnia 6. Renal insufficiency 7. Sinus tachycardia Patient condition Improving Plan: continue current care This inpt stay is expected to cross 2 MNs from start of care Yes Antibiotic Stewardship (2) Infxn that will respond? Yes Right drug,dose,and route? No More targeted antbx? Yes at 8955
[2017-03-23 07:31] VITALS: BP 150/90
[2017-03-23 15:59] VITALS: BP 134/74
[2017-03-23 20:19] VITALS: BP 150/70
[2017-03-24 00:02] VITALS: BP 136/65
[2017-03-24 04:19] VITALS: BP 130/73
--- NOTE | 2017-03-24 07:20 | ACUTE CARE PROGRESS NOTE (QUA) ---
Progress Notes Subjective Date 03/24/17 Time 0718 Note Patient has no complaints this morning. She continues to produce sputum although it is now a light green. She is been out of bed. She is using the percussion vest which is improving her ability to mobilize sputum. She appears comfortable. Lung exam is significant for some anterior rhonchi and faint expiratory wheezes posteriorly. Heart has regular rate and rhythm. Continue IV vancomycin for MRSA respiratory tract infection. Remove [place] catheter Objective Findings Last VS-Temp:97.7 B/P:130/73 Pulse:86 Resp:20 SaO2:92 OXYGEN Last weight lbs:203 oz:0 K.080 Method:Bed Scales Assessment/Plan Problem List 1. 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 Chronic obstructive lung disease Status: Chronic 4. Anemia Qualifiers: Anemia type: unspecified type Qualified Code: D64.9 - Anemia, unspecified 5. Respiratory failure Qualifiers: Chronicity: acute on chronic Respiratory failure complication: hypercapnia Qualified Code: J96.22 - Acute and chronic respiratory failure with hypercapnia 6. Renal insufficiency 7. Sinus tachycardia Patient condition Improving Plan: continue current care This inpt stay is expected to cross 2 MNs from start of care Yes Antibiotic Stewardship (2) Infxn that will respond? Yes Right drug,dose,and route? No More targeted antbx? Yes at 0719
[2017-03-24 07:34] LABS: HEMOGLOBIN 10.7 g/dL (12.2-16.2); LYMPH # 1.7 K/mm3 (0.7-4.5); LYMPH % 21.4 % (10-50.0)
[2017-03-24 08:10] VITALS: BP 122/65
[2017-03-24 12:14] VITALS: BP 124/65
--- NOTE | 2017-03-24 16:08 | CONSULT NOTE ---
Pharmacokinetic Consult Date of consult: 03/24/17 Time of consult: 1606 Referring provider: DR. CRUZ Reason for consult: VANCOMYCIN LEVEL Allergies: Coded Allergies: Sulfa (Sulfonamide Antibiotics) (12/09/16) codeine (12/09/16) hydrocodone (12/09/16) metoclopramide (From REGLAN) (12/09/16) Home Medications: Active Scripts NYSTATIN (Nystatin Susp 100,000 Units/Ml 60ML) 10 ML PO QID #120 ML Ref 3 Prov: 12/06/16 ONDANSETRON HCL (Zofran 4MG Tab) 4 MG PO Q6HP PRN NAUSEA AND VOMITING #30 TAB Ref 1 Prov: 12/06/16 Reported Medications Bumetanide 2 MG PO DAILYP PRN DIURETIC Guaifenesin (Mucinex) 600 MG PO BID BUDESONIDE/FORMOTEROL FUMARATE (Symbicort 160-4.5 Mcg Inhaler) 2 PUFF IH BID Tiotropium [place] (Spiriva) 1 PUFF IH DAILY Potassium Chloride (Klor-Con M20) 20 MEQ PO DAILY Device (Oxygen (Concentrator)) 1 UNIT XX UD Ranitidine Hcl (Ranitidine 150MG) 75 MG PO QHS Multivitamin (One Daily Essential) 1 TAB PO DAILY Loratadine (Claritin 10MG) 10 MG PO DAILY SERTRALINE HCL (Zoloft) 100 MG PO DAILY POLYETHYLENE GLYCOL (Miralax) 17 GM PO DAILY Acetaminophen 325 MG PO Q4HP PRN PAIN Docusate Sodium 100 MG PO DAILYP PRN CONSTIPATION Ferrous Sulfate (Iron Tablet) 325 MG PO DAILY Pregabalin (Lyrica 25MG) 25 MG PO BID Mirabegron (Myrbetriq) 50 MG PO DAILY Bacillus Coagulans (Probiotic) 1 EACH PO DAILY TRAZODONE HCL (Trazodone HCl) 50 MG PO QHS Hydrocortisone 5 MG PO QAM Aspirin 81 MG PO DAILY CHOLECALCIFEROL (VITAMIN D3) (Vitamin D) 1,000 IUNITS PO DAILY Hydrocortisone 2.5 MG PO QHS PILOCARPINE HCL (Pilocarpine Hydrochloride) 5 MG PO TID Pantoprazole Sodium (Protonix 40MG TAB) 40 MG PO DAILY ALBUTEROL-IPRATROPIUM (Iprat-Albut 0.5-3(2.5) MG/3 Ml) 3 ML IH Q4HP PRN BREATHING Height (feet): 5 Height (inches): 4.00 Medical History: CAD? No Angina: No DC: No Hypertension? Yes Hyperlipidemia? No CHF? Yes DVT? No PE? No COPD? Yes Asthma? Yes Anemia? No GERD? Yes Gastric ulcers? Yes GI Bleed? No Hernia? No Thyroid Problems? No Hypothyroidism? No CVA? No Seizures? No Diabetes? No Renal Insuffiency? No UTI? No Stones? No BPH? No GB Disease: Yes Nephritic Syndrome? No Asplenia? No Hepatitis? No Sickle Cell Disease? No Arthritis? Yes Migraines? No Cataracts? Yes Glaucoma? No MRSA? Yes HIV? No TB? No Anxiety? Yes Depression? Yes Cancer? No More? Yes Additional hx: ADRENAL INSUFFIENCY, IGG SUBCLASS Labs: Laboratory Tests 03/24/17 1000: Vancomycin Trough 15.6 03/24/17 0630: Sodium 140, Potassium 3.2 L, Chloride 101, Carbon Dioxide 37 H, BUN 14, Creatinine 1.2 H, Estimated Creat Clear 65, Estimated GFR (MDRD) 45 L, Glucose 110 H, Calcium 8.6, WBC 8.1, RBC 3.46 L, Hgb 10.7 L, Hct 31.1 L, MCV 89.9, RDW 13.8, Plt Count 212, MPV 4.9 L, Gran % 70.4, Gran # 5.7, Lymphocytes % 21.4 , Monocytes % 4.0, Eosinophils % 4.0, Basophils % 0.2, Lymphocytes # 1.7, Monocytes # 0.3, Eosinophils # 0.3, Basophils # 0.0, PUBS MCHC 34.5, MCH 31.0 Plan: BASED ON PATIENT'S VANCOMYCIN LEVEL OF 15.6 MCG/ML, RECOMMEND CONTINUING WITH CURRENT DOSE OF VANCOMYCIN 1500 MG Q24H AT THIS TIME. PHARMACY WILL FOLLOW DAILY AND ADJUST APPROPRIATE. REJI MURO, PHARMD at 1607
[2017-03-24 16:27] VITALS: BP 130/51
[2017-03-24 20:16] VITALS: BP 127/62
[2017-03-25] VITALS (7 sets, daily range): BP systolic 100–132; BP diastolic 44–70
[2017-03-25 06:54] LABS: HEMOGLOBIN 10.2 g/dL (12.2-16.2); LYMPH # 1.8 K/mm3 (0.7-4.5); LYMPH % 21.9 % (10-50.0)
--- NOTE | 2017-03-25 07:54 | ACUTE CARE PROGRESS NOTE (QUA) ---
Progress Notes Subjective Date 03/25/17 Time 0754 Note Patient tolerating vancomycin infusions well. Slept well last night. Eating breakfast well today. Lung bansal have rhonchi and crackles in the lower lung bansal but apparently are improved. Heart rate regular. Abdomen soft. No edema. Assessment/Plan Problem List 1. 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 Chronic obstructive lung disease Status: Chronic 4. Anemia Qualifiers: Anemia type: unspecified type Qualified Code: D64.9 - Anemia, unspecified 5. Respiratory failure Qualifiers: Chronicity: acute on chronic Respiratory failure complication: hypercapnia Qualified Code: J96.22 - Acute and chronic respiratory failure with hypercapnia 6. Renal insufficiency 7. Sinus tachycardia Patient condition Improving Plan: continue current care, no changes in plan. This inpt stay is expected to cross 2 MNs from start of care Yes Antibiotic Stewardship (2) Infxn that will respond? Yes Right drug,dose,and route? No More targeted antbx? Yes at 0754
[2017-03-26] VITALS (7 sets, daily range): BP systolic 126–137; BP diastolic 49–60
--- NOTE | 2017-03-26 07:11 | ACUTE CARE PROGRESS NOTE (QUA) ---
Progress Notes Subjective Date 03/26/17 Time 0710 Note Patient is pleasant and talkative. States that her nausea from yesterday is better. Lungs have loose rhonchi in both lung bansal but good air movement. Abdomen soft. No significant edema noted. Heart rate regular. Objective Findings Last VS-Temp:97.5 B/P:131/60 Pulse:79 Resp:18 SaO2:98 OXYGEN Last weight lbs:195 oz:3 K.536 Method:Bed Scales Assessment/Plan Problem List 1. 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 Chronic obstructive lung disease Status: Chronic 4. Anemia Qualifiers: Anemia type: unspecified type Qualified Code: D64.9 - Anemia, unspecified 5. Respiratory failure Qualifiers: Chronicity: acute on chronic Respiratory failure complication: hypercapnia Qualified Code: J96.22 - Acute and chronic respiratory failure with hypercapnia 6. Renal insufficiency 7. Sinus tachycardia Patient condition Improving, continue current therapy for MRSA pneumonia. This inpt stay is expected to cross 2 MNs from start of care Yes Antibiotic Stewardship (2) Infxn that will respond? Yes Right drug,dose,and route? No More targeted antbx? Yes at 0711
[2017-03-27] VITALS (8 sets, daily range): BP systolic 104–168; BP diastolic 52–79
--- NOTE | 2017-03-27 07:13 | ACUTE CARE PROGRESS NOTE (QUA) ---
Progress Notes Subjective Date 03/27/17 Time 0711 Note Patient complains of right-sided chest and rib pain that radiates up into the neck. This is worse with coughing. She is awake and alert and sitting up in bed this morning. Lungs have rhonchi that are rather diffuse along with some expiratory wheezes. Heart has a regular rate and rhythm. Repeat chest x-ray. Give small dose of prednisone today. Continue vancomycin Objective Findings Last VS-Temp:98.5 B/P:124/54 Pulse:82 Resp:18 SaO2:97 OXYGEN Last weight lbs:197 oz:8 K.584 Method:Bed Scales Assessment/Plan Problem List 1. 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 Chronic obstructive lung disease Status: Chronic 4. Anemia Qualifiers: Anemia type: unspecified type Qualified Code: D64.9 - Anemia, unspecified 5. Respiratory failure Qualifiers: Chronicity: acute on chronic Respiratory failure complication: hypercapnia Qualified Code: J96.22 - Acute and chronic respiratory failure with hypercapnia 6. Renal insufficiency 7. Sinus tachycardia 8. MRSA pneumonia Patient condition Stable Plan: continue current care This inpt stay is expected to cross 2 MNs from start of care Yes Antibiotic Stewardship (2) Infxn that will respond? Yes Right drug,dose,and route? No More targeted antbx? Yes at 0712
--- NOTE | 2017-03-27 12:28 | RADIOLOGY REPORT PS360 ---
CHEST(2 VIEWS-NOT PORTABLE) HISTORY: right sided chest pain ORDERING PHYSICIAN: Curtis Philippe MD PATIENT AGE: 66 years COMPARISON: 03/21/2017 FINDINGS: Normal heart size. CHF has improved Previously noted atelectatic changes in the right perihilar area have improved. There remains some minimal atelectasis in the left lung base. Right subclavian central line remains in place. Small bilateral effusions have improved. IMPRESSION: 1. Improvement in CHF and right midlung atelectasis and small bilateral pleural effusions. 2. Minimal residual atelectatic changes in the left lung base
[2017-03-28] VITALS (7 sets, daily range): BP systolic 113–132; BP diastolic 51–74
--- NOTE | 2017-03-28 07:12 | ACUTE CARE PROGRESS NOTE (QUA) ---
Progress Notes Subjective Date 03/28/17 Time 0709 Note Patient has no new complaints. She still notes discomfort in the RIGHT chest especially with coughing. Chest x-ray yesterday showed overall improvement with improvement in the atelectasis that was at the RIGHT middle lobe. Patient continues to have a cough that is productive of green sputum. She has been out of bed. She continues to use the percussion vest. She looks comfortable with nasal cannula oxygen in place. Lung exam reveals diffuse rhonchi and expiratory wheezes. Rhonchi clear mostly with coughing and deep breathing. Wheezing persists. Heart has a regular rate and rhythm. Continue vancomycin. Patient is very slow to get over this illness and I suspect that's due to her IgG deficiency and having missed her last infusion of IVIG. Objective Findings Last VS-Temp:97.6 B/P:125/53 Pulse:80 Resp:18 SaO2:97 OXYGEN Last weight lbs:192 oz:0 K.09 Method:Bed Scales Assessment/Plan Problem List 1. 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 Chronic obstructive lung disease Status: Chronic 4. Anemia Qualifiers: Anemia type: unspecified type Qualified Code: D64.9 - Anemia, unspecified 5. Respiratory failure Qualifiers: Chronicity: acute on chronic Respiratory failure complication: hypercapnia Qualified Code: J96.22 - Acute and chronic respiratory failure with hypercapnia 6. Renal insufficiency 7. Sinus tachycardia 8. MRSA pneumonia Patient condition Stable Plan: continue current care This inpt stay is expected to cross 2 MNs from start of care Yes Antibiotic Stewardship (2) Infxn that will respond? Yes Right drug,dose,and route? No More targeted antbx? Yes at 0711
--- NOTE | 2017-03-28 10:56 | CONSULT NOTE ---
Pharmacokinetic Consult Date of consult: 03/28/17 Time of consult: 1055 Referring provider: DR. CRZU Reason for consult: VANCOMYCIN TROUGH LEVEL Allergies: Coded Allergies: Sulfa (Sulfonamide Antibiotics) (12/09/16) codeine (12/09/16) hydrocodone (12/09/16) metoclopramide (From REGLAN) (12/09/16) Home Medications: Active Scripts NYSTATIN (Nystatin Susp 100,000 Units/Ml 60ML) 10 ML PO QID #120 ML Ref 3 Prov: 12/06/16 ONDANSETRON HCL (Zofran 4MG Tab) 4 MG PO Q6HP PRN NAUSEA AND VOMITING #30 TAB Ref 1 Prov: 12/06/16 Reported Medications Bumetanide 2 MG PO DAILYP PRN DIURETIC Guaifenesin (Mucinex) 600 MG PO BID BUDESONIDE/FORMOTEROL FUMARATE (Symbicort 160-4.5 Mcg Inhaler) 2 PUFF IH BID Tiotropium [place] (Spiriva) 1 PUFF IH DAILY Potassium Chloride (Klor-Con M20) 20 MEQ PO DAILY Device (Oxygen (Concentrator)) 1 UNIT XX UD Ranitidine Hcl (Ranitidine 150MG) 75 MG PO QHS Multivitamin (One Daily Essential) 1 TAB PO DAILY Loratadine (Claritin 10MG) 10 MG PO DAILY SERTRALINE HCL (Zoloft) 100 MG PO DAILY POLYETHYLENE GLYCOL (Miralax) 17 GM PO DAILY Acetaminophen 325 MG PO Q4HP PRN PAIN Docusate Sodium 100 MG PO DAILYP PRN CONSTIPATION Ferrous Sulfate (Iron Tablet) 325 MG PO DAILY Pregabalin (Lyrica 25MG) 25 MG PO BID Mirabegron (Myrbetriq) 50 MG PO DAILY Bacillus Coagulans (Probiotic) 1 EACH PO DAILY TRAZODONE HCL (Trazodone HCl) 50 MG PO QHS Hydrocortisone 5 MG PO QAM Aspirin 81 MG PO DAILY CHOLECALCIFEROL (VITAMIN D3) (Vitamin D) 1,000 IUNITS PO DAILY Hydrocortisone 2.5 MG PO QHS PILOCARPINE HCL (Pilocarpine Hydrochloride) 5 MG PO TID Pantoprazole Sodium (Protonix 40MG TAB) 40 MG PO DAILY ALBUTEROL-IPRATROPIUM (Iprat-Albut 0.5-3(2.5) MG/3 Ml) 3 ML IH Q4HP PRN BREATHING Height (feet): 5 Height (inches): 4.00 Medical History: CAD? No Angina: No [place]: No Hypertension? Yes Hyperlipidemia? No CHF? Yes DVT? No PE? No COPD? Yes Asthma? Yes Anemia? No GERD? Yes Gastric ulcers? Yes GI Bleed? No Hernia? No Thyroid Problems? No Hypothyroidism? No CVA? No Seizures? No Diabetes? No Renal Insuffiency? No UTI? No Stones? No BPH? No GB Disease: Yes Nephritic Syndrome? No Asplenia? No Hepatitis? No Sickle Cell Disease? No Arthritis? Yes Migraines? No Cataracts? Yes Glaucoma? No MRSA? Yes HIV? No TB? No Anxiety? Yes Depression? Yes Cancer? No More? Yes Additional hx: ADRENAL INSUFFIENCY, IGG SUBCLASS Labs: Laboratory Tests 03/28/17 1015: Vancomycin Trough 21.9 H Problem List: 1. MRSA pneumonia Plan: BASED ON VANCOMYCIN TROUGH LEVEL, RECOMMEND DECREASING DOSE SLIGHTLY TO VANCOMYCIN 1250 MG IV Q24H. PHARMACY WILL CONTINUE TO MONITOR DAILY AND ADJUST APPROPRIATE. at 3936
[2017-03-29] VITALS (9 sets, daily range): BP systolic 118–135; BP diastolic 51–91
--- NOTE | 2017-03-29 06:31 | ACUTE CARE PROGRESS NOTE (QUA) ---
Progress Notes Subjective Date 03/29/17 Time 0630 Note Patient has no complaints this morning. She states she feels a little bit better. She continues to have a cough which is productive of green sputum although she feels like her sputum production is beginning to decrease. She is awake with oxygen in place. No respiratory distress is noted. Lungs have diffuse rhonchi best heard anteriorly. Rhonchi clear mostly with cough. She has faint expiratory wheezes best heard posteriorly. Heart has a regular rate and rhythm. Abdomen is soft. Extremities are without edema. Patient is slowly improving. Continue prednisone 30 mg today and intravenous vancomycin. Pharmacy is following vancomycin trough levels and making adjustments accordingly. Objective Findings Last VS-Temp:97.4 B/P:118/91 Pulse:90 Resp:20 SaO2:94 OXYGEN Last weight lbs:192 oz:0 K.09 Method:Bed Scales Laboratory Tests 03/28/17 1015: Creatinine 1.3 H, Estimated Creat Clear 57, Estimated GFR (MDRD) 41 L, Vancomycin Trough 21.9 H Assessment/Plan Problem List 1. 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 Chronic obstructive lung disease Status: Chronic 4. Anemia Qualifiers: Anemia type: unspecified type Qualified Code: D64.9 - Anemia, unspecified 5. Respiratory failure Qualifiers: Chronicity: acute on chronic Respiratory failure complication: hypercapnia Qualified Code: J96.22 - Acute and chronic respiratory failure with hypercapnia 6. Renal insufficiency 7. Sinus tachycardia 8. MRSA pneumonia Patient condition Improving Plan: continue current care This inpt stay is expected to cross 2 MNs from start of care Yes Antibiotic Stewardship (2) Infxn that will respond? Yes Right drug,dose,and route? No More targeted antbx? Yes at 0631
[2017-03-30] VITALS (7 sets, daily range): BP systolic 120–147; BP diastolic 58–82
--- NOTE | 2017-03-30 07:26 | ACUTE CARE PROGRESS NOTE (QUA) ---
Progress Notes Subjective Date 03/30/17 Time 0723 Note Patient has a new complaint of itching. She states she developed pruritus early in the admission but yesterday it reached its peak and she required some Benadryl. Her only new medications currently are prednisone and vancomycin. She awakens easily this morning. She has fair aeration with faint end expiratory wheezes. She has diffuse anterior rhonchi that clear after coughing. Heart has regular rate and rhythm. Continue current care. Possible discharge tomorrow Objective Findings Last VS-Temp:97.8 B/P:147/82 Pulse:84 Resp:20 SaO2:97 OXYGEN Last weight lbs:195 oz:0 K.451 Method:Bed Scales Assessment/Plan Problem List 1. 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 Chronic obstructive lung disease Status: Chronic 4. Anemia Qualifiers: Anemia type: unspecified type Qualified Code: D64.9 - Anemia, unspecified 5. Respiratory failure Qualifiers: Chronicity: acute on chronic Respiratory failure complication: hypercapnia Qualified Code: J96.22 - Acute and chronic respiratory failure with hypercapnia 6. Renal insufficiency 7. Sinus tachycardia 8. MRSA pneumonia Patient condition Stable Plan: continue current care This inpt stay is expected to cross 2 MNs from start of care Yes Antibiotic Stewardship (2) Infxn that will respond? Yes Right drug,dose,and route? No More targeted antbx? Yes at 0733
[2017-03-31 00:38] VITALS: BP 123/62
[2017-03-31 04:18] VITALS: BP 122/64
--- NOTE | 2017-03-31 07:12 | ACUTE CARE PROGRESS NOTE (QUA) ---
Progress Notes Subjective Date 03/31/17 Time 0710 Note Patient has no complaints this morning. She feels well. She looks well. She is awake and reading the newspaper this morning. Lungs have excellent air entry with expiratory rhonchi heard posteriorly in the upper lobes but no wheezes. Heart has regular rate and rhythm. Extremities are without edema. She will be discharged home later today after receiving her morning dose of vancomycin. She will follow-up in my office in one week Objective Findings Last VS-Temp:99.1 B/P:122/64 Pulse:86 Resp:16 SaO2:95 OXYGEN Last weight lbs:192 oz:5 K.231 Method:Bed Scales Laboratory Tests 03/30/172127: Vancomycin Trough 22.7 H Assessment/Plan Problem List 1. 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 Chronic obstructive lung disease Status: Chronic 4. Anemia Qualifiers: Anemia type: unspecified type Qualified Code: D64.9 - Anemia, unspecified 5. Respiratory failure Qualifiers: Chronicity: acute on chronic Respiratory failure complication: hypercapnia Qualified Code: J96.22 - Acute and chronic respiratory failure with hypercapnia 6. Renal insufficiency 7. Sinus tachycardia 8. MRSA pneumonia Patient condition Improving This inpt stay is expected to cross 2 MNs from start of care Yes Antibiotic Stewardship (2) Infxn that will respond? Yes Right drug,dose,and route? No More targeted antbx? Yes at 0711
--- NOTE | 2017-03-31 07:16 | Discharge Summary ---
Demographics Admit date: 03/19/17 Discharge date: 03/31/17 Discharge diagnoses Problem List 1. 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 Chronic obstructive lung disease Status Chronic 4. Anemia 5. Respiratory failure 6. Renal insufficiency 7. Sinus tachycardia 8. MRSA pneumonia History of present illness History of present illness 66-year-old female with severe chronic obstructive pulmonary disease presented to the emergency department after acute onset of dyspnea with cough yesterday evening. When patient arrived in the emergency department she was found to be febrile with a rectal temperature of 102. Workup was begun and suspicious for RIGHT lower lobe pneumonia. Patient was started on IV antibiotics including vancomycin due to her history of MRSA. Patient was obtunded and started on BiPAP. Blood gas revealed mild hypercapnia not too far from her baseline. Nursing staff reports on arrival to the floor the patient could not really answer questions but would open her eyes to her name. During my interview the patient does make attempts to talk but the BiPAP makes it difficult to communicate. This morning patient is resting on BiPAP. She is more alert than on admission. She reports cough. Cough began acutely and she denies choking on any food yesterday evening. She does admit she has a hard time swallowing with sensation as if food gets stuck in the lower chest. Within 24 hours of admission patient was weaned from her BiPAP. She remained on nasal cannula oxygen throughout the rest of hospitalization. Lung exam was abnormal with bilateral rales, rhonchi, wheezes area patient has a history of MRSA and was started on vancomycin in addition to Rocephin and azithromycin for community-acquired pneumonia protocol. Sputum culture ultimately grew MRSA. Vancomycin was continued and other antibiotics were discontinued. Patient was also placed on steroids because of her chronic obstructive pulmonary disease exacerbation. Patient was very slow to respond. Because she was slow to respond repeat chest x-ray was performed around the middle of her admission but there were no worsening pulmonary findings. She is continued on vancomycin for a total of 10 days. After approximately a week of therapy patient's symptoms began to improve. Sputum cleared to a normal color. Wheezing began to resolve and lung exam improved. On the day of discharge she still had some posterior rhonchi on expiration. I did discuss with the patient the need for her to get her IV Ig infusions monthly. I have no doubt this contributes somewhat to her recent infection as she had missed her last dose. She was continued on home medicines while hospitalized Medications Medications: Discharge meds are as noted. Follow up Follow up in office in: 7 DAYS with: Curtis Philippe MD at 0715
[2017-03-31 07:53] VITALS: BP 135/75
[2017-03-31 08:27] VITALS: BP 135/75
[2017-03-31 09:37] VITALS: BP 135/75
--- NOTE | 2017-03-31 10:51 | CONSULT NOTE ---
Pharmacokinetic Consult Date of consult: 03/31/17 Time of consult: 1049 Referring provider: DR. CRUZ Reason for consult: VANCOMYCIN TROUGH LEVEL Allergies: Coded Allergies: Sulfa (Sulfonamide Antibiotics) (12/09/16) codeine (12/09/16) hydrocodone (12/09/16) metoclopramide (From REGLAN) (12/09/16) Home Medications: Active Scripts NYSTATIN (Nystatin Susp 100,000 Units/Ml 60ML) 10 ML PO QID #120 ML Ref 3 Prov: 12/06/16 ONDANSETRON HCL (Zofran 4MG Tab) 4 MG PO Q6HP PRN NAUSEA AND VOMITING #30 TAB Ref 1 Prov: 12/06/16 Reported Medications Bumetanide 2 MG PO DAILYP PRN DIURETIC Guaifenesin (Mucinex) 600 MG PO BID BUDESONIDE/FORMOTEROL FUMARATE (Symbicort 160-4.5 Mcg Inhaler) 2 PUFF IH BID Tiotropium [place] (Spiriva) 1 PUFF IH DAILY Potassium Chloride (Klor-Con M20) 20 MEQ PO DAILY Device (Oxygen (Concentrator)) 1 UNIT XX UD Ranitidine Hcl (Ranitidine 150MG) 75 MG PO QHS Multivitamin (One Daily Essential) 1 TAB PO DAILY Loratadine (Claritin 10MG) 10 MG PO DAILY SERTRALINE HCL (Zoloft) 100 MG PO DAILY POLYETHYLENE GLYCOL (Miralax) 17 GM PO DAILY Acetaminophen 325 MG PO Q4HP PRN PAIN Docusate Sodium 100 MG PO DAILYP PRN CONSTIPATION Ferrous Sulfate (Iron Tablet) 325 MG PO DAILY Pregabalin (Lyrica 25MG) 25 MG PO BID Mirabegron (Myrbetriq) 50 MG PO DAILY Bacillus Coagulans (Probiotic) 1 EACH PO DAILY TRAZODONE HCL (Trazodone HCl) 50 MG PO QHS Hydrocortisone 5 MG PO QAM Aspirin 81 MG PO DAILY CHOLECALCIFEROL (VITAMIN D3) (Vitamin D) 1,000 IUNITS PO DAILY Hydrocortisone 2.5 MG PO QHS PILOCARPINE HCL (Pilocarpine Hydrochloride) 5 MG PO TID Pantoprazole Sodium (Protonix 40MG TAB) 40 MG PO DAILY ALBUTEROL-IPRATROPIUM (Iprat-Albut 0.5-3(2.5) MG/3 Ml) 3 ML IH Q4HP PRN BREATHING Height (feet): 5 Height (inches): 4.00 Medical History: CAD? No Angina: No [place]: No Hypertension? Yes Hyperlipidemia? No CHF? Yes DVT? No PE? No COPD? Yes Asthma? Yes Anemia? No GERD? Yes Gastric ulcers? Yes GI Bleed? No Hernia? No Thyroid Problems? No Hypothyroidism? No CVA? No Seizures? No Diabetes? No Renal Insuffiency? No UTI? No Stones? No BPH? No GB Disease: Yes Nephritic Syndrome? No Asplenia? No Hepatitis? No Sickle Cell Disease? No Arthritis? Yes Migraines? No Cataracts? Yes Glaucoma? No MRSA? Yes HIV? No TB? No Anxiety? Yes Depression? Yes Cancer? No More? Yes Additional hx: ADRENAL INSUFFIENCY, IGG SUBCLASS Labs: Laboratory Tests 03/30/17 2128: Vancomycin Trough 22.7 H Problem List: 1. CAP (community acquired pneumonia) Plan: BASED ON VANCOMYCIN TROUGH LEVEL, RECOMMEND CHANGING INTERVAL TO VANCOMCYIN 1250 MG IV Q36H. PATIENT IS BEING DISCHARGED TODAY. at 1058
== END 2017-03-31 12:55 | disposition home or self-care (01) | DRG 177 ==
LOC: ER 00:43 → 2ND 02:03 → ER 02:03 → 2ND 02:40
PROVIDERS: Emergency Medicine; Family Medicine
DX: J15.212 Pneumonia due to Methicillin resistant Staphylococcus aureus (principal); J96.22 Acute and chronic respiratory failure with hypercapnia; D80.3 Selective deficiency of immunoglobulin G [IgG] subclasses; J44.1 Chronic obstructive pulmonary disease with (acute) exacerbation; Z86.14 Personal history of Methicillin resistant Staphylococcus aureus infection
CPT/HCPCS: J0456; J2405; J3370

== ENCOUNTER 2017-07-27 10:00 | Outpatient (CLI) | payer MEDICARE ==
[~2017-07-27] VITALS: Ht 165.1 cm; Wt 88.9 kg
[2017-07-27] VITALS (7 sets, daily range): BP systolic 87–171; BP diastolic 53–80
[~2017-07-27 10:00] MED LIST changes: +ADULT LOW DOSE81 MG PO; +ALBUTEROL2.5 MG/NEB INH; +AUGMENTIN 875-1 EACH PO; +BIPAP XX; +BUSPIRONE HCL10 MG PO; +DYMISTA1 SPR NS; +FLUTICASONE 50M16 GM; +GUAIFENESIN400 M1 PO; +IPRATROPIUM 2.2.5 ML INH; -IPRATROPIUM BROM3 M1 IH; -KLOR-CON M2020 MEQ PO; +MICRO-K 10 MEQ10 MEQ PO; -MUCINEX ER600 MG PO; +ONDANSETRON HYDR8 M1 PO; -PILOCARPINE HYDR5 MG PO; +PROAIR HFA0.09 MG/AC IH; +SALAGEN7.5 MG PO; +SINGULAIR 10 MG10 MG PO; +TRAZADONE HYDR100 MG PO; -TRAZODONE 50MG50 MG PO; +VALIUM 2MG TABLE2 MG PO; +VITAMIN D400 UNI1 PO
== END 2017-07-27 12:50 | disposition hospice, home (50) ==
LOC: COP 10:00
DX: D80.3 Selective deficiency of immunoglobulin G [IgG] subclasses (principal)
CPT/HCPCS: J1459; J1642

== ENCOUNTER 2017-08-25 10:00 | Outpatient (CLI) | payer MEDICARE ==
[2017-08-25 10:33] VITALS: BP 133/65
[2017-08-25 11:00] VITALS: BP 117/55
[2017-08-25 11:30] VITALS: BP 121/62
[2017-08-25 12:00] VITALS: BP 113/52
[2017-08-25 12:45] VITALS: BP 120/67
== END 2017-08-25 12:45 | disposition home or self-care (01) ==
LOC: COP 10:00
DX: D80.3 Selective deficiency of immunoglobulin G [IgG] subclasses (principal)

== ENCOUNTER 2017-08-29 11:44 | Inpatient (IN) | payer MEDICARE ==
[~2017-08-29] VITALS: Ht 165.1 cm; Wt 97.7 kg
--- NOTE | 2017-08-29 12:00 | HISTORY AND PHYSICAL REPORT ---
Demographics: Admit date: 08/29/17 Chief complaint: COUGH AND WEAKNESS PRIMARY DIAGNOSIS: MRSA BRONCHITIS FAILED OP TREATMENT Allergies: Coded Allergies: Sulfa (Sulfonamide Antibiotics) (08/25/17) codeine (08/25/17) hydrocodone (08/25/17) metoclopramide (From REGLAN) (08/25/17) History of present illness: History of present illness: 67-YEAR-OLD FEMALE WITH SEVERE copd PRESENTED TO THE OFFICE TODAY WITH INCREASING COh with yellowish green sputum production and weakness after being treated for the last 2 weeks for MRSA bronchitis with oral doxycycline. Patient has a history of MRSA lung infections and has required intravenous vancomycin in the past. She denies fevers at home but other then sputum becoming slightly blood and plasma laboratory assistant in color she has not SINCE BEGINNING ORAL ANTIBIOTICS. dECISION HAS BEEN MADE TO ADMIT HER FOR iv ANTIBIOTICS. Past medical history: Family HX Family Hx Insignificant No Diabetes No CAD No Hypertension No Hyperlipidemia No Cancer No TB Yes Immunization HX DT/Tetanus Unknown Flu 2015-FSN Pneumonia Received In Past General CAD? No Angina: No [place]: No Hypertension? Yes Hyperlipidemia? No CHF? Yes DVT? No PE? No COPD? Yes Asthma? Yes Anemia? No GERD? Yes Gastric ulcers? Yes GI Bleed? No Hernia? No Thyroid Problems? No Hypothyroidism? No CVA? No Seizures? No Diabetes? No Renal Insuffiency? No UTI? No Stones? No BPH? No GB Disease: Yes Nephritic Syndrome? No Asplenia? No Hepatitis? No Sickle Cell Disease? No Arthritis? Yes Migraines? No Cataracts? Yes Glaucoma? No MRSA? Yes HIV? No TB? No Anxiety? Yes Depression? Yes Cancer? No More? Yes Additional hx: ADRENAL INSUFFIENCY, IGG SUBCLASS Past Surgical HX Previous Surgery?Y [place] Hysterect BACK X 2 PAIN PUMP ABD LEFT PELON HEART CATH PORT A CATH LEFT HIP Current home meds: Active Scripts Device (Bipap Machine) 1 UNIT XX UD #1 DEV Prov: 07/18/17 Reported Medications POTASSIUM CHL (Potassium Chloride) 20 MEQ PO DAILY Guaifenesin 400 MG PO QHS BUDESONIDE/FORMOTEROL FUMARATE (Symbicort 160-4.5 Mcg Inhaler) 2 PUFF IH BID Tiotropium [place] (Spiriva) 1 PUFF IH DAILY Bumetanide 2 MG PO DAILYP PRN DIURETIC Aspirin (Adult Low Dose Aspirin EC) 81 MG PO DAILY PILOCARPINE HCL (Salagen) 7.5 MG PO TID Pantoprazole Sodium (Protonix 40MG TAB) 40 MG PO DAILY ALBUTEROL (Albuterol 0.083% Neb) 3 ML INH Q6H SERTRALINE HCL (Zoloft) 100 MG PO DAILY Ferrous Sulfate (Iron Tablet) 325 MG PO DAILY Pregabalin (Lyrica 25MG) 25 MG PO BID Mirabegron (Myrbetriq) 50 MG PO DAILY Trazodone Hcl (Trazodone HCl) 100 MG PO QHS Cholecalciferol (Vitamin D3) (Vitamin D) 400 UNIT PO DAILY Buspirone Hcl (Buspirone 10MG) 10 MG PO BID Albuterol Sulfate (Proair Hfa) 2 PUFF IH Q4HP PRN BREATHING Montelukast Sodium (Singulair 10MG) 10 MG PO DAILY Ipratropium [place] (Ipratropium 0.5MG Neb Soln) 3 ML INH BID AZELASTINE/FLUTICASONE (Dymista Nasal [place]) 1 SPR NS BID ONDANSETRON HCL (Ondansetron Hydrochloride) 8 MG PO DAILY #90 Doxycycline Hyclate (Vibramycin) 100 MG PO BID Device (Oxygen (Concentrator)) 1 UNIT XX UD Ranitidine Hcl (Ranitidine 150MG) 75 MG PO QHS Multivitamin (One Daily Essential) 1 TAB PO DAILY Loratadine (Claritin 10MG) 10 MG PO DAILY POLYETHYLENE GLYCOL (Miralax) 17 GM PO DAILY Acetaminophen 325 MG PO Q4HP PRN PAIN Bacillus Coagulans (Probiotic) 1 EACH PO DAILY Hydrocortisone 5 MG PO QAM Hydrocortisone 2.5 MG PO QHS Social Hx: Smoking HX Packs/day N/A Alcohol Alcohol: No Hx of Drug Use Drug Use? No Patien't marital status is Patient's support system is fair Review of systems: Constitutional weakness. No: chills, diaphoresis, fever. Respiratory cough, shortness of breath, SOB with excertion, SOB at rest. Cardiovascular no symptoms reported Gastrointestinal/Abdominal no symptoms reported Genitourinary no symptoms reported. Musculoskeletal no symptoms reported. Neurological Yes: no symptoms reported. Exam: Lab data for last 24 hours: Microbiology 08/29 UNK BLOOD: Anaerobic Blood Culture - ORD 08/29 UNK BLOOD: Aerobic Blood Culture - ORD 08/29 UNK BLOOD: Anaerobic Blood Culture - ORD 08/29 UNK BLOOD: Aerobic Blood Culture - ORD Exam General appearance: alert, awake, no acute distress Eyes: conjunctiva clear Cardiovascular: regular rate & rhythm Respiratory: pOOR AERATION WITH RHONCHI BEST HEARD ON THE LEFT. cLEARING OF RHONCHI WITH COUGH. Plan: Problem List 1. COPD (chronic obstructive pulmonary disease) with acute bronchitis 2. MRSA infection 3. Obstructive sleep apnea 4. IgG deficiency 5. Chronic respiratory failure with hypoxia, on home O2 therapy Plan: aDMIT FOR iv VANCOMYCIN, INCREASE PULMONARY TOILET,, HOME MEDICATIONS. pATIENT WILL BE ORDERED MORPHINE FOR HER RIB PAIN.
[2017-08-29 12:32] VITALS: BP 118/74
[2017-08-29] MEDS ORDERED: DOXYCYCLINE HY100 M4 PO (12:54)
[2017-08-29 13:58] LABS: HEMOGLOBIN 10.8 g/dL (12.2-16.2); LYMPH # 1.2 K/mm3 (0.7-4.5); LYMPH % 18.1 % (10-50.0)
--- NOTE | 2017-08-29 14:55 | CONSULT NOTE ---
Pharmacokinetic Consult Date of consult: 08/29/17 Time of consult: 3 Referring provider: DR. CRUZ Reason for consult: VANCOMYCIN TROUGH LEVEL Allergies: Coded Allergies: Sulfa (Sulfonamide Antibiotics) (08/25/17) codeine (08/25/17) hydrocodone (08/25/17) metoclopramide (From REGLAN) (08/25/17) Home Medications: Active Scripts Device (Bipap Machine) 1 UNIT XX UD #1 DEV Prov: 07/18/17 Reported Medications POTASSIUM CHL (Potassium Chloride) 20 MEQ PO DAILY Guaifenesin 400 MG PO QHS BUDESONIDE/FORMOTEROL FUMARATE (Symbicort 160-4.5 Mcg Inhaler) 2 PUFF IH BID Tiotropium [place] (Spiriva) 1 PUFF IH DAILY Bumetanide 2 MG PO DAILYP PRN DIURETIC Aspirin (Adult Low Dose Aspirin EC) 81 MG PO DAILY PILOCARPINE HCL (Salagen) 7.5 MG PO TID Pantoprazole Sodium (Protonix 40MG TAB) 40 MG PO DAILY ALBUTEROL (Albuterol 0.083% Neb) 3 ML INH Q6H SERTRALINE HCL (Zoloft) 100 MG PO DAILY Ferrous Sulfate (Iron Tablet) 325 MG PO DAILY Pregabalin (Lyrica 25MG) 25 MG PO BID Mirabegron (Myrbetriq) 50 MG PO DAILY Trazodone Hcl (Trazodone HCl) 100 MG PO QHS Cholecalciferol (Vitamin D3) (Vitamin D) 400 UNIT PO DAILY Buspirone Hcl (Buspirone 10MG) 10 MG PO BID Albuterol Sulfate (Proair Hfa) 2 PUFF IH Q4HP PRN BREATHING Montelukast Sodium (Singulair 10MG) 10 MG PO DAILY Ipratropium [place] (Ipratropium 0.5MG Neb Soln) 3 ML INH BID AZELASTINE/FLUTICASONE (Dymista Nasal [place]) 1 SPR NS BID ONDANSETRON HCL (Ondansetron Hydrochloride) 8 MG PO DAILY #90 Doxycycline Hyclate (Vibramycin) 100 MG PO BID Device (Oxygen (Concentrator)) 1 UNIT XX UD Ranitidine Hcl (Ranitidine 150MG) 75 MG PO QHS Multivitamin (One Daily Essential) 1 TAB PO DAILY Loratadine (Claritin 10MG) 10 MG PO DAILY POLYETHYLENE GLYCOL (Miralax) 17 GM PO DAILY Acetaminophen 325 MG PO Q4HP PRN PAIN Bacillus Coagulans (Probiotic) 1 EACH PO DAILY Hydrocortisone 5 MG PO QAM Hydrocortisone 2.5 MG PO QHS Height (feet): 5 Height (inches): 5.00 Medical History: CAD? No Angina: No [place]: No Hypertension? Yes Hyperlipidemia? No CHF? Yes DVT? No PE? No COPD? Yes Asthma? Yes Anemia? No GERD? Yes Gastric ulcers? Yes GI Bleed? No Hernia? No Thyroid Problems? No Hypothyroidism? No CVA? No Seizures? No Diabetes? No Renal Insuffiency? No UTI? No Stones? No BPH? No GB Disease: Yes Nephritic Syndrome? No Asplenia? No Hepatitis? No Sickle Cell Disease? No Arthritis? Yes Migraines? No Cataracts? Yes Glaucoma? No MRSA? Yes HIV? No TB? No Anxiety? Yes Depression? Yes Cancer? No More? Yes Additional hx: ADRENAL INSUFFIENCY, IGG SUBCLASS Labs: Laboratory Tests 08/29/17 1324: Sodium 140, Potassium 4.1, Chloride 102, Carbon Dioxide 33 H, BUN 25 H, Creatinine 1.1 H, Estimated Creat Clear 73, Estimated GFR (MDRD) 49 L, Glucose 86, Calcium 8.7, WBC 7.0, RBC 3.66 L, Hgb 10.8 L, Hct 34.0 L, MCV 92.9, RDW 14.6, Plt Count 160, Gran % 75.3, Gran # 5.3, Lymphocytes % 18.1, Monocytes % 5.4, Eosinophils % 1.0, Basophils % 0.2, Lymphocytes # 1.2, Monocytes # 0.4, Eosinophils # 0.1, Basophils # 0.0, PUBS MCHC 31.7 L, MCH 29.4, Mycoplasma pneumon IgM NON-REACTIVE Microbiology 08/29 141 SPUTUM: Organism ID (Sequencing 2)([id number]) - ORD 08/29 141 SPUTUM: Sputum Culture - RECD 08/29 141 SPUTUM: Gram Stain - RECD 08/29 1324 BLOOD: Anaerobic Blood Culture - RECD 08/29 132 BLOOD: Aerobic Blood Culture - RECD 08/29 1324 BLOOD: Anaerobic Blood Culture - RECD 08/29 1324 BLOOD: Aerobic Blood Culture - RECD Problem List: 1. MRSA infection 2. History of MRSA infection of lungs Plan: BASED ON PATIENT FACTORS, RECOMMEND VANCOMYCIN 1750 MG IV Q24H. PHARMACY WILL FOLLOW DAILY AND ADJUST APPROPRIATE. at 3913
[2017-08-29 16:00] VITALS: BP 119/88
[2017-08-29 19:25] VITALS: BP 119/88
[2017-08-29 19:52] VITALS: BP 128/71
[2017-08-30] VITALS (8 sets, daily range): BP systolic 115–151; BP diastolic 54–77
--- NOTE | 2017-08-30 05:19 | RADIOLOGY REPORT PS360 ---
CHEST(2 VIEWS-NOT PORTABLE) HISTORY: R/O PNEUMONIA cough Patient Age: 67 years: Female Ordering Physician: Curtis Philippe MD TECHNIQUE: 2 view chest COMPARISON :March 27, 2017, April, 2 view CXR.... Also 06/02/2017 CTA chest FINDINGS : Left chest. Patchy Left lower lobe infiltrate superimposed upon chronic changes. The patient has had chronic changes seen at the posterior left lung base on CT study 06/02/2017. However there is additional density seen left base posteriorly towards posterior sulcus, particularly evident on today's lateral view when compared back to 2 view chest from earlier this year listed above. Right chest. Right lung is clear.. No focal infiltrate [employer] Central line enters from right subclavian with tip at SVC. Stable. Mild cardiomegaly. Pulmonary vascularity is upper normal and may be slight enhancement versus prior study no overt CHF. No pleural effusion evident. Distal right clavicle is been resected. This feature unchanged. IMPRESSION: Left left basilar pneumonia superimposed upon chronic changes. ; Findings most evident posteriorLLL Right lung hyperexpanded but clear. Mild vascular engorgement no overt CHF central line remains entering from right.
--- NOTE | 2017-08-30 06:31 | ACUTE CARE PROGRESS NOTE (QUA) ---
Progress Notes Subjective Date 08/30/17 Time 0628 Note Patient feels about the same. Sputum remains green. She has frequent loose cough. Chest x-ray has shown a LEFT lower lobe pneumonia. Patient is awake and alert. Not ill appearing. Lung sounds are distant with loose rhonchi that clear with cough and all lung bansal. Rales in the LEFT lung base. Scattered intermittent wheezes with expiration. Heart has regular rate and rhythm. Continue IV vancomycin for MRSA pneumonia. Await sputum cultures. Increased pulmonary toilet with chest physiotherapy Objective Findings Last VS-Temp:98.3 B/P:115/61 Pulse:84 Resp:18 SaO2:95 OXYGEN Last weight lbs:213 oz:6 K.785 Method:Bed Scales Laboratory Tests 08/29/171323: Sodium 140, Potassium 4.1, Chloride 102, Carbon Dioxide 33 H, BUN 25 H, Creatinine 1.1 H, Estimated Creat Clear 73, Estimated GFR (MDRD) 49 L, Glucose 86, Calcium 8.7, WBC 7.0, RBC 3.66 L, Hgb 10.8 L, Hct 34.0 L, MCV 92.9, RDW 14.6, Plt Count 160, Gran % 75.3, Gran # 5.3, Lymphocytes % 18.1, Monocytes % 5.4, Eosinophils % 1.0, Basophils % 0.2, Lymphocytes # 1.2, Monocytes # 0.4, Eosinophils # 0.1, Basophils # 0.0, PUBS MCHC 31.7 L, MCH 29.4, Mycoplasma pneumon IgM NON-REACTIVE Microbiology 08/29 141 SPUTUM: Organism ID (Sequencing 2)(MEKHI) - ORD 08/29 141 SPUTUM: Sputum Culture - RES 08/29 1410 SPUTUM: Gram Stain - RES 08/29 1324 BLOOD: Anaerobic Blood Culture - RECD 08/29 1324 BLOOD: Aerobic Blood Culture - RECD 08/29 1324 BLOOD: Anaerobic Blood Culture - RECD 08/29 1324 BLOOD: Aerobic Blood Culture - RECD Assessment/Plan Problem List 1. COPD (chronic obstructive pulmonary disease) with acute bronchitis 2. MRSA infection 3. Obstructive sleep apnea 4. IgG deficiency 5. Chronic respiratory failure with hypoxia, on home O2 therapy 6. Left lower lobe pneumonia Patient condition Stable This inpt stay is expected to cross 2 MNs from start of care Yes
--- NOTE | 2017-08-30 07:19 | PHARMACY CLINIC NOTE ---
Patient Demographics Patient Demographics Admission date: 08/29/17 Date: 08/30/17 Time: 0718 Allergies Coded Allergies: Sulfa (Sulfonamide Antibiotics) (08/25/17) codeine (08/25/17) hydrocodone (08/25/17) metoclopramide (From REGLAN) (08/25/17) HEIGHT- FT: 5 IN: 5.00 K.785 VTE General Information Labs: Laboratory Tests 08/29 1324 Hematology Hgb (12.2 - 16.2 g/dL) 10.8 L Hct (37.0 - 47.0 %) 34.0 L Plt Count (142 - 424 K/mm3) 160 Disclaimer The following section includes nursing documentation that has been pulled in for pharmacy review. Patient's VTE score: 4 Patient's VTE Risk: LOW RISK Clinical trial participant? No VTE prophylaxis [id number] VTE prophylaxis ordered? Yes Type of prophylaxis/treatment: LIEN at 0719
[2017-08-31] VITALS (8 sets, daily range): BP systolic 117–153; BP diastolic 68–87
--- NOTE | 2017-08-31 07:45 | ACUTE CARE PROGRESS NOTE (QUA) ---
Progress Notes Subjective Date 08/31/17 Time 0742 Note Patient reports very little improvement. Her cough remains loose although she is not producing much sputum. What sputum she is producing is yellowish-green in color. She continues to have left-sided chest pain from her fall 1 week ago. Percussion vest was used yesterday and patient tolerated it well but it did not produce any sputum. Patient appears comfortable resting in the chair this morning. Lung exam is change slightly is now she has some expiratory wheezes mixed with her rhonchi. Rales or persistent at the LEFT lung base. Heart has a regular rate and rhythm. Use nebulized Mucomyst to see if that can help with sputum clearance. Continue percussion vest. Continue vancomycin. Await sputum cultures. Add prednisone 20 mg Objective Findings Last VS-Temp:98.8 B/P:117/87 Pulse:92 Resp:20 SaO2:94 OXYGEN Last weight lbs:212 oz:6 K.332 Method:Bed Scales Assessment/Plan Problem List 1. MRSA pneumonia 2. COPD (chronic obstructive pulmonary disease) with acute bronchitis 3. MRSA infection 4. Obstructive sleep apnea 5. IgG deficiency 6. Chronic respiratory failure with hypoxia, on home O2 therapy 7. Left lower lobe pneumonia Patient condition Stable This inpt stay is expected to cross 2 MNs from start of care Yes
[2017-09-01] VITALS (7 sets, daily range): BP systolic 124–158; BP diastolic 69–96
--- NOTE | 2017-09-01 07:36 | ACUTE CARE PROGRESS NOTE (QUA) ---
Progress Notes Subjective Date 09/01/17 Time 0734 Note Patient has no new complaints today. She does report that Mucomyst seems to be helping loosen her sputum and making it easier to clear. Sputum still has a greenish tinge. She also reports yesterday while using the bedside commode the commode seat pinched the back of her legs. She is awake and alert. Oxygen is in place. Lungs have loose rhonchi diffusely but no wheezes this morning. Faint rales in the LEFT lung base. She has 2 abrasions on the back of her thighs from where she was pinched by the toilet seat. Extremities are without edema. Continue vancomycin. Continue Mucomyst. Continue percussion vest. Patient seems to be slowly improving Objective Findings Last VS-Temp:98.0 B/P:131/69 Pulse:96 Resp:20 SaO2:97 OXYGEN Last weight lbs:212 oz:2 K.218 Method:Bed Scales Assessment/Plan Problem List 1. MRSA pneumonia 2. COPD (chronic obstructive pulmonary disease) with acute bronchitis 3. MRSA infection 4. Obstructive sleep apnea 5. IgG deficiency 6. Chronic respiratory failure with hypoxia, on home O2 therapy 7. Left lower lobe pneumonia Patient condition Stable Plan: continue current care This inpt stay is expected to cross 2 MNs from start of care Yes at 0736
--- NOTE | 2017-09-01 14:13 | CONSULT NOTE ---
Pharmacokinetic Consult Date of consult: 09/01/17 Time of consult: 1410 Referring provider: DR. CRUZ Reason for consult: VANCOMYCIN TROUGH LEVEL Allergies: Coded Allergies: Sulfa (Sulfonamide Antibiotics) (08/25/17) codeine (08/25/17) hydrocodone (08/25/17) metoclopramide (From REGLAN) (08/25/17) Home Medications: Active Scripts Device (Bipap Machine) 1 UNIT XX UD #1 DEV Prov: 07/18/17 Reported Medications POTASSIUM CHL (Potassium Chloride) 20 MEQ PO DAILY Guaifenesin 400 MG PO QHS BUDESONIDE/FORMOTEROL FUMARATE (Symbicort 160-4.5 Mcg Inhaler) 2 PUFF IH BID Tiotropium [place] (Spiriva) 1 PUFF IH DAILY Bumetanide 2 MG PO DAILYP PRN DIURETIC Aspirin (Adult Low Dose Aspirin EC) 81 MG PO DAILY PILOCARPINE HCL (Salagen) 7.5 MG PO TID Pantoprazole Sodium (Protonix 40MG TAB) 40 MG PO DAILY ALBUTEROL (Albuterol 0.083% Neb) 3 ML INH Q6H SERTRALINE HCL (Zoloft) 100 MG PO DAILY Ferrous Sulfate (Iron Tablet) 325 MG PO DAILY Pregabalin (Lyrica 25MG) 25 MG PO BID Mirabegron (Myrbetriq) 50 MG PO DAILY Trazodone Hcl (Trazodone HCl) 100 MG PO QHS Cholecalciferol (Vitamin D3) (Vitamin D) 400 UNIT PO DAILY Buspirone Hcl (Buspirone 10MG) 10 MG PO BID Albuterol Sulfate (Proair Hfa) 2 PUFF IH Q4HP PRN BREATHING Montelukast Sodium (Singulair 10MG) 10 MG PO DAILY Ipratropium [place] (Ipratropium 0.5MG Neb Soln) 3 ML INH BID AZELASTINE/FLUTICASONE (Dymista Nasal [place]) 1 SPR NS BID ONDANSETRON HCL (Ondansetron Hydrochloride) 8 MG PO DAILY #90 Doxycycline Hyclate (Vibramycin) 100 MG PO BID Device (Oxygen (Concentrator)) 1 UNIT XX UD Ranitidine Hcl (Ranitidine 150MG) 75 MG PO QHS Multivitamin (One Daily Essential) 1 TAB PO DAILY Loratadine (Claritin 10MG) 10 MG PO DAILY POLYETHYLENE GLYCOL (Miralax) 17 GM PO DAILY Acetaminophen 325 MG PO Q4HP PRN PAIN Bacillus Coagulans (Probiotic) 1 EACH PO DAILY Hydrocortisone 5 MG PO QAM Hydrocortisone 2.5 MG PO QHS Height (feet): 5 Height (inches): 5.00 Medical History: CAD? No Angina: No IA: No Hypertension? Yes Hyperlipidemia? No CHF? Yes DVT? No PE? No COPD? Yes Asthma? Yes Anemia? No GERD? Yes Gastric ulcers? Yes GI Bleed? No Hernia? No Thyroid Problems? No Hypothyroidism? No CVA? No Seizures? No Diabetes? No Renal Insuffiency? No UTI? No Stones? No BPH? No GB Disease: Yes Nephritic Syndrome? No Asplenia? No Hepatitis? No Sickle Cell Disease? No Arthritis? Yes Migraines? No Cataracts? Yes Glaucoma? No MRSA? Yes HIV? No TB? No Anxiety? Yes Depression? Yes Cancer? No More? Yes Additional hx: ADRENAL INSUFFIENCY, IGG SUBCLASS Labs: Laboratory Tests 09/01/17 1335: Vancomycin Trough 15.6 Problem List: 1. History of MRSA infection of lungs Plan: BASED ON VANCOMYCIN TROUGH LEVEL AND PATIENT FACTORS, RECOMMEND CONTINUING VANCOMYCIN 1750 MG IV Q24H. PHARMACY WILL CONTINUE TO MONITOR DAILY AND ADJUST APPROPRIATE. at 1412
[2017-09-02] VITALS (7 sets, daily range): BP systolic 104–151; BP diastolic 64–86
--- NOTE | 2017-09-02 07:55 | ACUTE CARE PROGRESS NOTE (QUA) ---
Progress Notes Subjective Date 09/02/17 Time 0752 Note Patient reports starting to feel "some better". Cough remains loose but despite use of Mucomyst and percussion vest patient still is producing very little sputum. She is awake and alert. Patient has audible rhonchi but can be heard simply standing next to the bed. Rhonchi did not change much with cough. On auscultation of the lungs rhonchi are present area and no wheezing today. Persistent rales in the LEFT lung base. Heart has regular rate and rhythm. Patient is slowly improving. Her sputum culture was negative which means her previous MRSA has cleared. Pneumonia is persistent. Increase pulmonary toilet today with use of Mucomyst and percussion vest. Encouraged patient to get up and ambulate. Anticipate discharge tomorrow Objective Findings Last VS-Temp:98.2 B/P:138/64 Pulse:86 Resp:20 SaO2:96 OXYGEN Last weight lbs:212 oz:3 K.247 Method:Bed Scales Assessment/Plan Problem List 1. COPD (chronic obstructive pulmonary disease) with acute bronchitis 2. MRSA infection 3. Obstructive sleep apnea 4. IgG deficiency 5. Chronic respiratory failure with hypoxia, on home O2 therapy This inpt stay is expected to cross 2 MNs from start of care Yes at 0757
--- NOTE | 2017-09-02 11:19 | ACUTE CARE PROGRESS NOTE (QUA) ---
Progress Notes Subjective Date 09/02/17 Time 1119 Assessment/Plan Problem List 1. COPD (chronic obstructive pulmonary disease) with acute bronchitis 2. MRSA infection 3. Obstructive sleep apnea 4. IgG deficiency 5. Chronic respiratory failure with hypoxia, on home O2 therapy This inpt stay is expected to cross 2 MNs from start of care Yes Antibiotic Stewardship (2) Current Culture Results Microbiology 08/29 1417 SPUTUM: Organism ID (Sequencing 2)(MEKHI) - CAN Cancelled: Auto-cancelled after 3 days. 08/29 141 SPUTUM: Sputum Culture - COMP 08/29 141 SPUTUM: Gram Stain - COMP 08/29 1324 BLOOD: Anaerobic Blood Culture - RES 08/29 1324 BLOOD: Aerobic Blood Culture - RES Infxn that will respond? Yes Right drug,dose,and route? Yes More targeted antbx? No at 1117
[2017-09-03 00:31] VITALS: BP 150/71
[2017-09-03 04:03] VITALS: BP 139/72
--- NOTE | 2017-09-03 07:38 | Discharge Summary ---
Demographics Admit date: 08/29/17 Discharge date: 09/03/17 Discharge diagnoses Problem List 1. Left lower lobe pneumonia 2. MRSA infection 3. COPD (chronic obstructive pulmonary disease) with acute bronchitis 4. Obstructive sleep apnea 5. IgG deficiency 6. Chronic respiratory failure with hypoxia, on home O2 therapy History of present illness History of present illness 67-YEAR-OLD FEMALE WITH SEVERE copd PRESENTED TO THE OFFICE TODAY WITH INCREASING COh with yellowish green sputum production and weakness after being treated for the last 2 weeks for MRSA bronchitis with oral doxycycline. Patient has a history of MRSA lung infections and has required intravenous vancomycin in the past. 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 dECISION HAS BEEN MADE TO ADMIT HER FOR iv ANTIBIOTICS. Patient was admitted and placed on intravenous vancomycin for continued treatment of MRSA lower respiratory tract infection. Chest x-ray confirmed the presence of LEFT lower lobe pneumonia. White count was normal on admission and was not repeated. Patient continued on vancomycin the remainder of her hospitalization. Repeat sputum culture revealed normal respiratory mt. Blood cultures were negative. Patient had significant rhonchi and wheezing. She was started on oral prednisone 20 mg daily and wheezing improved. Rhonchi persisted despite use of standard treatment with nebs and mucolytics. Nebulized Mucomyst was used to enhance sputum clearance in addition to chest physiotherapy. This seemed to help the patient clear sputum however she remains significantly rhonchorous. By the eighth the patient had improved enough that she was able to be discharged home. She will continue home medications plus prednisone 10 mg daily and Mucomyst nebs 3 times per day. Patient will follow-up in my office on September 11 Medications Medications: Discharge meds are as noted. Follow up Follow up in office in: monday, september 11 with: Curtis Philippe MD at 0786
[2017-09-03] MEDS ORDERED: PREDNISONE 10MG10 MG PO (07:39)
[2017-09-03] MEDS ORDERED: ACETYLCYSTEINE IN (07:42)
[2017-09-03 07:54] VITALS: BP 121/64
[2017-09-03 11:09] VITALS: BP 121/64
--- OUTSIDE RECORDS SUMMARY | 2017-09-07 06:31 | External Medical Summary Rpt | CCD ---
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 PAIN Metoclopramide NA-NAUSEA Unknown Hydrocodone NA-NAUSEA, ABD CRAMPS Unknown Medications Na ND Rx Da Fi Fi Am Da Di Ph RX Ph St me C No te ll ll ou ys ag ar # ys at rm s nt no ma ic us Or Da si cy ia de te s n re d TR 00 01 0 No AM 09 -1 AD 30 3- Lo OL 05 20 ng 80 14 er 50 1H MG Ac ti TA ve BL ET TA KE HO ME LE 68 03 0 No VO 08 -2 FL 40 6- Lo OX 48 20 ng AC 30 13 er IN 1 Ac 75 ti 0 ve MG TA BL ET IN [address] -2 RU 5- Lo CT 20 ng IO 13 er N IN Ac FO ti RM ve AT IO N LE 25 03 1 No VO 02 -2 FL 10 4- Lo OX 13 20 ng AC 28 13 er IN 3 Ac 75 ti 0 ve MG /1 50 ML -D 5W CL 00 03 0 No IN 40 -2 DA 94 3- Lo MY 05 20 ng CI 50 13 er N 3 15 Ac 0 ti MG ve /M L AD DV AN So 00 03 0 No di 07 -2 um 47 3- Lo 10 20 ng Ch 12 13 er lo 3 ri Ac de ti ve 0. 9% 10 0M L Ad v CE 60 03 3 No FE 50 -2 PI 50 3- Lo ME 83 20 ng 40 13 er HC 4 L Ac 1 ti GM ve AL VA 00 03 3 No NC 40 -2 OM 96 3- Lo YC 53 20 ng IN 30 13 er 1 1 Ac GM ti ve AL SO 00 03 3 No DI 40 -2 UM 97 3- Lo 98 20 ng CH 30 13 er LO 9 RI Ac DE ti ve 0. 9% SO SHANTE TI ON IP 00 03 3 No RA 48 -2 T- 70 3- Lo AL 20 20 ng BU 10 13 er T 1 0. Ac 5- ti 3( ve 2. 5) MG /3 ML ON 00 03 3 No DA 64 -2 NS 16 3- Lo ET 08 20 ng RO 02 13 er N 5 HC Ac L ti 4 ve MG /2 ML AL TX 00 03 3 No OM 64 -2 ET 11 3- Lo CASTRO 49 20 ng ZI 53 13 er NE 5 Ac 25 ti ve MG /M L AM PU L 63 03 3 No PI 73 -2 RI 90 3- Lo N 43 20 ng 81 40 13 er 1 MG Ac ti CH ve EW AB LE TA BL ET DI 51 03 3 No AZ 07 -2 EP 90 3- Lo AM 28 20 ng 5 52 13 er 0 MG Ac ti TA ve BL ET Ga 68 03 3 No ba 08 -2 pe 40 3- Lo nt 08 20 ng in 00 13 er 1 30 Ac 0M ti G ve Ca ps ul e ME 51 03 3 No TO 07 -2 TX 90 3- Lo OL 25 20 ng OL 52 13 er 0 TA Ac RT ti RA ve TE 25 MG TA B SE 59 03 3 No RT 76 -2 RA 24 3- Lo LI 91 20 ng NE 00 13 er 3 HC Ac L ti 10 ve 0 MG TA BL ET Bu 51 03 3 No me 07 -2 ta 90 3- Lo ni 89 20 ng de 22 13 er 0 1M Ac G ti Ta ve bl et Po 00 03 3 No ta 24 -2 ss 50 3- Lo iu 05 20 ng m 80 13 er Ch 1 lo Ac ri ti de ve 20 ME Q Ta bl e PA 03 3 No TI -2 EN 3- Lo T' 20 ng S 13 er OW N Ac HO ti ME ve ME DS Mo 00 03 3 No nt 00 -2 el 60 3- Lo uk 11 20 ng as 72 13 er t 8 10 Ac MG ti ve Ta bl et TX 00 03 3 No OT 00 -2 ON 80 3- Lo IX 84 20 ng [address] 9 Ac 40 ti ve MG TA BL ET Tr 00 03 3 No az 18 -2 od 21 3- Lo on 25 20 ng e 98 13 er 50 9 MG Ac ti Ta ve bl et IP 00 03 0 No RA 48 -2 T- 70 2- Lo AL 20 20 ng BU 10 13 er T 1 0. Ac 5- ti 3( ve 2. 5) MG /3 ML Sa 63 03 1 No li 80 -2 ne 70 2- Lo 10 20 ng Fl 07 13 er us 5 h Ac 10 ti ML ve Sy ri ng e GA [address] 27 -2 RO 00 2- Lo GR 44 20 ng AF 53 13 er IN 5 Ac 66 ti -1 ve 0 SO SHANTE TI ON ON 00 03 0 No DA 64 -2 NS 16 2- Lo ET 08 20 ng RO 02 13 er N 5 HC Ac L ti 4 ve MG /2 ML AL MA 00 03 4 No PA 90 -2 P 41 2- Lo 32 98 20 ng 5 26 13 er MG 1 Ac TA ti BL ve ET CL 00 03 0 No IN 40 -2 DA 94 2- Lo MY 05 20 ng CI 50 13 er N 3 15 Ac 0 ti MG ve /M L AD DV AN So 00 03 0 No di 07 -2 um 47 2- Lo 10 20 ng Ch 12 13 er lo 3 ri Ac de ti ve 0. 9% 10 0M L Ad v LE 50 03 1 No VA 45 -2 QU 80 2- Lo IN 16 20 ng -D 80 13 er 5W 1 Ac 50 ti 0 ve MG /1 00 ML BA G SO 00 03 1 No DI 40 -2 UM 97 2- Lo 98 20 ng CH 30 13 er LO 9 RI Ac DE ti ve 0. 9% SO SHANTE TI ON Vital Signs 12-09-2013 23:35 Name Value Interpretat Reference Comment ion Range Body 98.2 [degF] Temperature BP 85 mm[Hg] Diastolic BP Systolic 149 mm[Hg] Heart 80 /min Rate/Pulse O2% 98 % Respiratory 21 /min Rate 12-09-2013 22:55 Name Value Interpretat Reference Comment ion Range BP 87 mm[Hg] Diastolic BP Systolic 113 mm[Hg] Heart 80 /min Rate/Pulse O2% 93 % Respiratory 20 /min Rate 02-19-2013 13:36 Name Value Interpretat Reference Comment ion Range Body 97.9 [degF] Temperature BP 63 mm[Hg] Diastolic BP Systolic 113 mm[Hg] Heart 80 /min Rate/Pulse Respiratory 18 /min Rate 02-19-2013 08:00 Name Value Interpretat Reference Comment ion Range O2% 94 % 02-16-2013 Name Value Interpretat Reference Comment ion Range Height 165.10 cm Weight 93.526 kg Measured 02-15-2013 15:42 Name Value Interpretat Reference Comment ion Range Body 99.7 [degF] Temperature BP 48 mm[Hg] Diastolic BP Systolic 106 mm[Hg] Heart 108 /min Rate/Pulse O2% 88 % Respiratory 24 /min Rate Weight 0 [oz_av] Measured Results Labs Lab Lab Date Result Refere Interp Status Commen Order Detail nces retati t Range on Legionella pneumophila 1 Ag [Presence] in Urine by Immunoassay (08-29-2017 15:20) Legione Negativ Negativ complet lla 017 e e ed pneumop 15:20 ross 1 Ag [Presen ce] in Urine by Immunoa ssay Mycoplasma pneumoniae IgM Ab [Presence] in Serum by Immunoassay (08-29-2017 13:24) Mycopla NON-ERIKA NONREAC complet sma 017 CTIVE TIVE ed pneumon 13:24 iae IgM Ab [Presen ce] in Serum by Immunoa ssay Gas panel in Arterial blood (07-14-2017 15:27) Arteria ACCEPTA complet l 017 BLE ed patency 15:27 Wrist artery --pre arteria l punctur e SOURCE RIGHT complet 017 RADIAL ed 15:27 Differential panel, method unspecified - (07-14-2017 15:00) LYMPH 11 % 10% - Normal complet 017 50% ed 15:00 Platele NORMAL complet ts 017 ed [Presen 15:00 ce] in Blood by Light microsc opy Streptococcus pyogenes Ag [Presence] in Unspecified specimen (06-02-2017 11:30) Strepto NEGATIV complet coccus 017 E ed pyogene 11:30 s Ag [Presen ce] in Unspeci fied specime n Gas panel in Arterial blood (06-02-2017 10:57) Arteria ACCEPTA complet l 017 BLE ed patency 10:57 Wrist artery --pre arteria l punctur e SOURCE LEFT complet 017 RADIAL ed 10:57 CBC with AUTO DIFF (02-19-2013 06:30) WBC # 26-2 7.3 4.8-10. complet Bld 013 K/MM3 8 ed Auto 06:30 RBC # 26-2 3.92 4.2-5.4 complet Bld 013 M/mm3 ed Auto 06:30 Hgb 02-19-2 10.5 12.2-16 complet Bld-mCn 013 g/dL .2 ed c 06:30 Hct Fr 02-19-2 33.4 % 37.0-47 complet Bld 013 .0 ed 06:30 MCV RBC 02-19-2 85.2 fl 82.2-97 complet 013 .8 ed 06:30 MCH RBC 02-19-2 26.9 pg 27-31.2 complet Qn 013 ed Auto 06:30 MEAN 02-19-2 31.6 31.8-35 complet CORPUSC 013 g/dl .4 ed ULAR 06:30 HGB CONC RDW RBC 02-19-2 17.1 % 11.5-17 complet Auto 013 .5 ed 06:30 Platele 02-19-2 285 142-424 complet t Bld 013 K/mm3 ed Ql 06:30 Manual MEAN 02-19-2 6.7 fl 7.4-10. complet PLATELE 013 4 ed T 06:30 VOLUME Granulo 02-19-2 68.2 % 37.0-80 complet cytes 013 .0 ed Fr Bld 06:30 Auto LYMPH % -26-2 20.8 % 10-50.0 complet 013 ed 06:30 Monocyt 03-26-2 5.4 % 1.7-9.3 complet es Fr 013 ed Bld 06:30 Auto Eosinop -26-2 5.5 % 0.1-12. complet hil Fr 013 0 ed Bld 06:30 Auto Basophi -26-2 0.2 % 0.1-2.0 complet ls Fr 013 ed Bld 06:30 Auto Granulo 03-26-2 5.0 1.8-7.8 complet cytes # 013 K/mm3 ed Bld 06:30 Auto Lymphoc 02-19-2 1.5 0.7-4.5 complet ytes Fr 013 K/mm3 ed Bld 06:30 Auto Monocyt 02-19-2 0.4 0.1-1.0 complet es # 013 K/mm3 ed Bld 06:30 Auto Eosinop 02-19-2 0.4 0.0-0.4 complet hil # 013 K/mm3 ed Bld 06:30 Auto Basophi 02-19-2 0.0 0-0.2 complet ls # 013 K/MM3 ed Bld 06:30 Auto OCCULT BLOOD (02-18-2013 12:35) Hemocul NEGATIV NEG complet t sp1 013 E ed Stl Ql 12:35 Vancomycin Trough SerPl-mCnc (02-18-2013 06:30) Vancomy 16.8 10.0-20 complet selena 013 mcg/mL .0 ed Trough 06:30 SerPl-m Cnc BASIC METABOLIC PANEL (02-18-2013 06:28) Glucose 94 74-106 complet 013 mg/dL ed Bld-mCn 06:28 c BUN 9 mg/dL 7-18 complet Bld-mCn 013 ed c 06:28 Creat 2 1.1 0.6-1.0 complet SerPl-m 013 mg/dL ed Cnc 06:28 ESTIMAT 02-18- 78 50-200 complet ED 013 ML/MIN ed CREATIN 06:28 INE CLEARAN CE GFR 50 59- complet (ESTIMA 013 ML/MIN ed LIEN) 06:28 Sodium 139 136-145 complet SerPl-s 013 mmoL/L ed Cnc 06:28 Potassi 3.9 3.5-5.1 complet um 013 mmoL/L ed SerPl-s 06:28 Cnc Chlorid 102 98-107 complet e 013 mmoL/L ed SerPl-s 06:28 Cnc CO2 34 21.0-32 complet SerPl-s 013 mmoL/L .0 ed Cnc 06:28 Calcium 8.6 8.5-10. complet 013 mg/dL 1 ed SerPl-m 06:28 Cnc CBC with AUTO DIFF (02-18-2013 06:28) WBC # -25-2 7.6 4.8-10. complet Bld 013 K/MM3 8 ed Auto 06:28 RBC # 25-2 4.02 4.2-5.4 complet Bld 013 M/mm3 ed Auto 06:28 Hgb 02-18-2 10.8 12.2-16 complet Bld-mCn 013 g/dL .2 ed c 06:28 Hct Fr 02-18-2 33.9 % 37.0-47 complet Bld 013 .0 ed 06:28 MCV RBC 02-18-2 84.5 fl 82.2-97 complet 013 .8 ed 06:28 MCH RBC 02-18-2 26.8 pg 27-31.2 complet Qn 013 ed Auto 06:28 MEAN 02-18-2 31.8 31.8-35 complet CORPUSC 013 g/dl .4 ed ULAR 06:28 HGB CONC RDW RBC 02-18-2 17.2 % 11.5-17 complet Auto 013 .5 ed 06:28 Platele 02-18-2 307 142-424 complet t Bld 013 K/mm3 ed Ql 06:28 Manual MEAN 02-18-2 6.7 fl 7.4-10. complet PLATELE 013 4 ed T 06:28 VOLUME Granulo 02-18-2 70.6 % 37.0-80 complet cytes 013 .0 ed Fr Bld 06:28 Auto LYMPH % 25-2 19.9 % 10-50.0 complet 013 ed 06:28 Monocyt 25-2 4.1 % 1.7-9.3 complet es Fr 013 ed Bld 06:28 Auto Eosinop -25-2 5.3 % 0.1-12. complet hil Fr 013 0 ed Bld 06:28 Auto Basophi 25-2 0.1 % 0.1-2.0 complet ls Fr 013 ed Bld 06:28 Auto Granulo -25-2 5.3 1.8-7.8 complet cytes # 013 K/mm3 ed Bld 06:28 Auto Lymphoc -25-2 1.5 0.7-4.5 complet ytes Fr 013 K/mm3 ed Bld 06:28 Auto Monocyt -25-2 0.3 0.1-1.0 complet es # 013 K/mm3 ed Bld 06:28 Auto Eosinop 02-18-2 0.4 0.0-0.4 complet hil # 013 K/mm3 ed Bld 06:28 Auto Basophi 02-18-2 0.0 0-0.2 complet ls # 013 K/MM3 ed Bld 06:28 Auto BASIC METABOLIC PANEL (02-17-2013 02:20) Glucose 101 74-106 complet 013 mg/dL ed Bld-mCn 02:20 c BUN 9 mg/dL 7-18 complet Bld-mCn 013 ed c 02:20 Creat 2 1.1 0.6-1.0 complet SerPl-m 013 mg/dL ed Cnc 02:20 ESTIMAT 02-17- 76 50-200 complet ED 013 ML/MIN ed CREATIN 02:20 INE CLEARAN CE GFR 50 59- complet (ESTIMA 013 ML/MIN ed LIEN) 02:20 Sodium 139 136-145 complet SerPl-s 013 mmoL/L ed Cnc 02:20 Potassi 3.5 3.5-5.1 complet um 013 mmoL/L ed SerPl-s 02:20 Cnc Chlorid 99 98-107 complet e 013 mmoL/L ed SerPl-s 02:20 Cnc CO2 34 21.0-32 complet SerPl-s 013 mmoL/L .0 ed Cnc 02:20 Calcium 8.6 8.5-10. complet 013 mg/dL 1 ed SerPl-m 02:20 Cnc CBC with AUTO DIFF (02-17-2013 02:20) WBC # 02-17-2 8.3 4.8-10. complet Bld 013 K/MM3 8 ed Auto 02:20 RBC # 02-17-2 3.86 4.2-5.4 complet Bld 013 M/mm3 ed Auto 02:20 Hgb 10.5 12.2-16 complet Bld-mCn 013 g/dL .2 ed c 02:20 Hct Fr 31.7 % 37.0-47 complet Bld 013 .0 ed 02:20 MCV RBC 02-17-2 82.0 fl 82.2-97 complet 013 .8 ed 02:20 MCH RBC 02-17-2 27.2 pg 27-31.2 complet Qn 013 ed Auto 02:20 MEAN 02-17-2 33.1 31.8-35 complet CORPUSC 013 g/dl .4 ed ULAR 02:20 HGB CONC RDW RBC 02-17-2 17.3 % 11.5-17 complet Auto 013 .5 ed 02:20 Platele 24-2 263 142-424 complet t Bld 013 K/mm3 ed Ql 02:20 Manual MEAN 02-17-2 7.6 fl 7.4-10. complet PLATELE 013 4 ed T 02:20 VOLUME Granulo 24-2 75.2 % 37.0-80 complet cytes 013 .0 ed Fr Bld 02:20 Auto LYMPH % -24-2 16.5 % 10-50.0 complet 013 ed 02:20 Monocyt 24-2 4.4 % 1.7-9.3 complet es Fr 013 ed Bld 02:20 Auto Eosinop -24-2 3.8 % 0.1-12. complet hil Fr 013 0 ed Bld 02:20 Auto Basophi -24-2 0.2 % 0.1-2.0 complet ls Fr 013 ed Bld 02:20 Auto Granulo -24-2 6.3 1.8-7.8 complet cytes # 013 K/mm3 ed Bld 02:20 Auto Lymphoc -24-2 1.4 0.7-4.5 complet ytes Fr 013 K/mm3 ed Bld 02:20 Auto Monocyt 03-24-2 0.4 0.1-1.0 complet es # 013 K/mm3 ed Bld 02:20 Auto Eosinop 03-24-2 0.3 0.0-0.4 complet hil # 013 K/mm3 ed Bld 02:20 Auto Basophi 03-24-2 0.0 0-0.2 complet ls # 013 K/MM3 ed Bld 02:20 Auto Vit B12 Ser-mCnc (02-16-2013 08:30) Vit B12 400 200-110 complet 013 pg/mL 0 ed Ser-mCn 08:30 c Ferritin SerPl-mCnc (02-16-2013 08:30) Ferriti 03-23-2 80 8-388 complet n 013 ng/mL ed SerPl-m 08:30 Cnc THYROID STIM HORMONE (02-16-2013 08:30) THYROID -23-2 0.73 0.358-3 complet STIM 013 uIU/ml .740 ed HORMONE 08:30 Retics/100 RBC Fr Auto (02-16-2013 08:30) Retics/ -23-2 2.4 % 0.9-3.2 complet 100 RBC 013 ed Fr 08:30 Auto CBC with AUTO DIFF (02-16-2013 06:10) WBC # 03-23-2 10.9 4.8-10. complet Bld 013 K/MM3 8 ed Auto 06:10 RBC # 03-23-2 3.14 4.2-5.4 complet Bld 013 M/mm3 ed Auto 06:10 Hgb -23-2 8.3 12.2-16 complet Bld-mCn 013 g/dL .2 ed c 06:10 Hct Fr 02-16-2 25.9 % 37.0-47 complet Bld 013 .0 ed 06:10 MCV RBC 03-23-2 82.4 fl 82.2-97 complet 013 .8 ed 06:10 MCH RBC -23-2 26.4 pg 27-31.2 complet Qn 013 ed Auto 06:10 MEAN -23-2 32.0 31.8-35 complet CORPUSC 013 g/dl .4 ed ULAR 06:10 HGB CONC RDW RBC -23-2 17.6 % 11.5-17 complet Auto 013 .5 ed 06:10 Platele -23-2 303 142-424 complet t Bld 013 K/mm3 ed Ql 06:10 Manual MEAN -23-2 6.6 fl 7.4-10. complet PLATELE 013 4 ed T 06:10 VOLUME Granulo -23-2 83.5 % 37.0-80 complet cytes 013 .0 ed Fr Bld 06:10 Auto LYMPH % 03-23-2 11.3 % 10-50.0 complet 013 ed 06:10 Monocyt 03-23-2 3.2 % 1.7-9.3 complet es Fr 013 ed Bld 06:10 Auto Eosinop -23-2 1.9 % 0.1-12. complet hil Fr 013 0 ed Bld 06:10 Auto Basophi 03-23-2 0.1 % 0.1-2.0 complet ls Fr 013 ed Bld 06:10 Auto Granulo 03-23-2 9.1 1.8-7.8 complet cytes # 013 K/mm3 ed Bld 06:10 Auto Lymphoc 03-23-2 1.2 0.7-4.5 complet ytes Fr 013 K/mm3 ed Bld 06:10 Auto Monocyt 03-23-2 0.4 0.1-1.0 complet es # 013 K/mm3 ed Bld 06:10 Auto Eosinop 03-23-2 0.2 0.0-0.4 complet hil # 013 K/mm3 ed Bld 06:10 Auto Basophi 03-23-2 0.0 0-0.2 complet ls # 013 K/MM3 ed Bld 06:10 Auto URINALYSIS/COMPLETE (02-16-2013 01:00) URINE -23-2 YELLOW YELLOW complet COLOR 013 ed 01:00 URINE -23-2 CLEAR CLEAR complet APPEARA 013 ed NCE 01:00 URINE -23-2 NEGATIV NEG complet GLUCOSE 013 E ed - 01:00 DIPSTIC K URINE 23-2 NEGATIV NEG complet BILIRUB 013 E ed IN - 01:00 DIPSTIC K URINE -23-2 NEGATIV NEG complet KETONE 013 E mg/dL ed 01:00 URINE -23-2 1.025 1.005-1 complet SPECIFI 013 UNK .030 ed C 01:00 GRAVITY URINE -23-2 NEGATIV NEG complet BLOOD 013 E ed 01:00 URINE -23-2 6.0 UNK 5.0-8.5 complet PH 013 ed 01:00 URINE -23-2 NEGATIV NEG complet PROTEIN 013 E mg/dL ed - 01:00 DIPSTIC K URINE -23-2 0.2 NEG complet UROBILI 013 E.U./dL ed NOGEN - 01:00 DIPSTIC K URINE -23-2 NEGATIV NEG complet NITRATE 013 E ed - 01:00 DIPSTIC K URINE -23-2 NEGATIV NEG complet LEUK 013 E ed ESTERAS 01:00 E URINE 03-23-2 3-5 O complet WBC 013 wbc/hpf ed 01:00 URINE 23-2 3-5 0-5 complet SQUAMOU 013 #/hpf ed S CELLS 01:00 URINE 23-2 3-5 NONE complet RENAL 013 #/HPF ed CELLS 01:00 COMPREHENSIVE METABOLIC PANEL (02-15-2013 16:25) Glucose 02-15- 132 74-106 complet 013 mg/dL ed Bld-mCn 16:25 c BUN 02-15-2 15 7-18 complet Bld-mCn 013 mg/dL ed c 16:25 Creat 02-15-2 1.3 0.6-1.0 complet SerPl-m 013 mg/dL ed Cnc 16:25 ESTIMAT 02-15-2 64 50-200 complet ED 013 ML/MIN ed CREATIN 16:25 INE CLEARAN CE GFR 41 59- complet (ESTIMA 013 ML/MIN ed LIEN) 16:25 Sodium 02-15- 136 136-145 complet SerPl-s 013 mmoL/L ed Cnc 16:25 Potassi 02-15-2 4.0 3.5-5.1 complet um 013 mmoL/L ed SerPl-s 16:25 Cnc Chlorid 02-15-2 95 98-107 complet e 013 mmoL/L ed SerPl-s 16:25 Cnc CO2 02-15- 34 21.0-32 complet SerPl-s 013 mmoL/L .0 ed Cnc 16:25 Calcium 02-15-2 8.5 8.5-10. complet 013 mg/dL 1 ed SerPl-m 16:25 Cnc Prot 02-15-2 7.6 6.4-8.2 complet SerPl-m 013 gm/dL ed Cnc 16:25 Albumin 02-15-2 2.8 3.4-5.0 complet 013 gm/dL ed SerPl-m 16:25 Cnc Globuli 02-15-2 4.8 1.3-3.2 complet n 013 gm/dL ed Ser-mCn 16:25 c Albumin 02-15-2 0.6 UNK 1.1-1.8 complet /Glob 013 ed SerPl-m 16:25 Rto Bilirub 02-15-2 0.4 0.2-1.0 complet 013 mg/dL ed SerPl-m 16:25 Cnc AST 22-2 22 U/L 15-37 complet SerPl-c 013 ed Cnc 16:25 ALT -22-2 28 U/L 30-65 complet SerPl-c 013 ed Cnc 16:25 ALP -22-2 94 U/L 50-136 complet SerPl-c 013 ed Cnc 16:25 CBC with AUTO DIFF (02-15-2013 16:25) WBC # 03-22-2 17.6 4.8-10. complet Bld 013 K/MM3 8 ed Auto 16:25 RBC # 03-22-2 3.43 4.2-5.4 complet Bld 013 M/mm3 ed Auto 16:25 Hgb -22-2 9.2 12.2-16 complet Bld-mCn 013 g/dL .2 ed c 16:25 Hct Fr 02-15-2 27.6 % 37.0-47 complet Bld 013 .0 ed 16:25 MCV RBC 02-15-2 80.3 fl 82.2-97 complet 013 .8 ed 16:25 MCH RBC 02-15-2 26.7 pg 27-31.2 complet Qn 013 ed Auto 16:25 MEAN 02-15-2 33.3 31.8-35 complet CORPUSC 013 g/dl .4 ed ULAR 16:25 HGB CONC RDW RBC 02-15-2 18.0 % 11.5-17 complet Auto 013 .5 ed 16:25 Platele --2 319 142-424 complet t Bld 013 K/mm3 ed Ql 16:25 Manual MEAN 02-15-2 6.6 fl 7.4-10. complet PLATELE 013 4 ed T 16:25 VOLUME Granulo --2 90.6 % 37.0-80 complet cytes 013 .0 ed Fr Bld 16:25 Auto LYMPH % -22-2 6.1 % 10-50.0 complet 013 ed 16:25 Monocyt -22-2 2.5 % 1.7-9.3 complet es Fr 013 ed Bld 16:25 Auto Eosinop -22-2 0.8 % 0.1-12. complet hil Fr 013 0 ed Bld 16:25 Auto Basophi 22-2 0.1 % 0.1-2.0 complet ls Fr 013 ed Bld 16:25 Auto Granulo 16.0 1.8-7.8 complet cytes # 013 K/mm3 ed Bld 16:25 Auto Lymphoc 02-15-2 1.1 0.7-4.5 complet ytes Fr 013 K/mm3 ed Bld 16:25 Auto Monocyt 02-15-2 0.4 0.1-1.0 complet es # 013 K/mm3 ed Bld 16:25 Auto Eosinop 02-15-2 0.1 0.0-0.4 complet hil # 013 K/mm3 ed Bld 16:25 Auto Basophi 02-15-2 0.0 0-0.2 complet ls # 013 K/MM3 ed Bld 16:25 Auto MYCOPLASMA IGM (RAPID) (02-15-2013 16:25) MYCOPLA 2 NON-ERIKA NONREAC complet SMA IGM 013 CTIVE TIVE ed 16:25 (RAPID) Procedures Procedure DOS Code Location Performer Comment PACKED 99.04 [facility] Jose Martin BA TRANSFUSI ON Encounters Encounter Start End Date Code Location Performer Type Date Emergency VANDANA Ian Adler MD (ER) 4 22:34 4 23:43 [facility] Inpatient IMP Ian Philippe MD ([place]) 3 16:01 3 13:40 [facility]
--- OUTSIDE RECORDS SUMMARY | 2017-09-07 06:31 | External Medical Summary Rpt | CCD ---
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 482.9 Bacterial [place] pneumonia [facility] 496 Chronic [place] obstructive [facility] disease Allergies, Adverse Reactions, Alerts Type [...] ti 4 ve MG /2 ML AL PA 00 03 3 No OM 64 -2 [...] 51 03 3 No TO 07 -2 PA 90 3- Lo OL 25 20 ng [...] Ac MG ti ve Ta bl et PA 00 03 3 No OT 00 -2 [...] DOS Code Location Performer Comment PACKED 99.04 [facility] Jose Martin BA TRANSFUSI ON Encounters Encounter Start End Date Code Location Performer Type Date Emergency VANDANA Ian Adler MD (ER) 4 22:34 4 23:43 [facility] Inpatient IMP Ian Philippe MD ([place]) 3 16:01 3 13:40 [facility]
--- OUTSIDE RECORDS SUMMARY | 2017-09-07 06:32 | External Medical Summary Rpt | CCD ---
Author Author , MANUEL Organization MANUEL Address Unknown Phone [email or web address] Immunization Name Date Rout CVX Reac Dose Comm Prov Is Faci e tion ent ider Refu lity Give sed n PPV2 05-2 33 999 Hist D203 No D203 3 7-20 oric 45 45 16 al Info rmat ion - Sour ce Unsp ecif ied Td 05-1 9 999 Hist H191 No H191 (jose 0-20 oric lt), 01 al Info adso rmat rbed ion - Sour ce Unsp ecif ied Hep 03-1 43 999 Hist H149 No H149 B, 0-20 oric adul 00 al t Info rmat ion - Sour ce Unsp ecif ied Hep 10-0 43 999 Hist H149 No H149 B, 8-19 oric adul 99 al t Info rmat ion - Sour ce Unsp ecif ied Hep 09-0 43 999 Hist H149 No H149 B, 8-19 oric adul 99 al t Info rmat ion - Sour ce Unsp ecif ied Hep 03-1 43 999 Hist H149 No H149 B, 9-19 oric adul 99 al t Info rmat ion - Sour ce Unsp ecif ied Hep 10-1 43 999 Hist H149 No H149 B, 6-19 oric adul 98 al t Info rmat ion - Sour ce Unsp ecif ied Hep 09-1 43 999 Hist H149 No H149 B, 6-19 oric adul 98 al t Info rmat ion - Sour ce Unsp ecif ied
--- OUTSIDE RECORDS SUMMARY | 2017-09-07 06:32 | External Medical Summary Rpt | CCD ---
Author Author , MANUEL Organization MANUEL Address Unknown Phone [email or web address] Immunization Name Date Rout CVX Reac Dose [...]
--- OUTSIDE RECORDS SUMMARY | 2017-09-07 06:33 | External Medical Summary Rpt ---
Author Author MANUEL Gallo, [employer] Organization [employer] Address Unknown Phone Unavailable Results Basic metabolic panel in Blood Observa Value Referen Units Interpr Notes Date tion ce etation Range DRAWN BY NURSE FROM PICC Urea 7 - 18 mg/dL High No Oct 6 nitrogen informati 2017 1:35 [Mass/vol on in PM ume] in source Serum or data Plasma Calcium 8.5 - mg/dL Low No Oct 6 [Mass/vol 10.1 informati 2017 1:35 ume] in on in PM Serum or source Plasma data Chloride 98 - 107 mmoL/L Normal No Oct 6 [Moles/vo informati 2017 1:35 lume] in on in PM Serum or source Plasma data Carbon 21.0 - mmoL/L High No Oct 6 dioxide, 32.0 informati 2016 1:35 total on in PM [Moles/vo source lume] in data Serum or Plasma Creatinin 0.55 - mg/dL High No Oct 6 e 1.02 informati 2017 1:35 [Mass/vol on in PM ume] in source Serum or data Plasma Creatinin 50 - 200 ML/MIN Normal No Oct 6 e renal informati 2016 1:35 clearance on in PM source predicted data by Cockcroft -Gault formula Estimated 59- ML/MIN Low REFERENCE Oct 6 RANGE: 2017 1:35 glomerula >60 PM r ML/MIN/1. filtratio 73 SQUARE n rate METERSIf (GF this patient is -A merican, then multiply theresult by 1.210. Glucose 74 - 106 mg/dL High No Oct 6 [Mass/vol informati 2017 1:35 ume] in on in PM Serum or source Plasma data Potassium 3.5 - 5.1 mmoL/L Normal No Oct 6 informati 2017 1:35 [Moles/vo on in PM lume] in source Serum or data Plasma Sodium 136 - 145 mmoL/L Normal No Oct 6 [Moles/vo informati 2017 1:35 lume] in on in PM Serum or source Plasma data Vancomycin [Mass/volume] in Serum or Plasma --trough Observa Value Referen Units Interpr Notes Date tion ce etation Range DRAWN BY NURSE FROM PICC Vancomyci 10.0 - mcg/mL Normal No Aug 6 n 20.0 inform2016 1:35 [Mass/vol on in PM ume] in source Serum or data Plasma --trough Legionella pneumophila 1 Ag [Presence] in Urine by Immunoassay Observa Value Referen Units Interpr Notes Date tion ce etation Range Legione Negativ Negativ No No Presump Aug 29 lla e e informa informa ti 2017 pneumop tion in tion in negativ 3:20 PM ross 1 source source e for Ag data data L. [Presen pneumop ce] in ross Urine serogro by up 1 Immunoa antigen ssay in urine, suggest ing no recent or current infecti on.Legi onnaire s' disease cannot be ruled out since otherse rogroup s and species may also cause disease .Perfor med at: - [facility] [address] [id number] Directo r: Jean Marie Nino MD, Phone: [phone] Mycoplasma pneumoniae IgM Ab [Presence] in Serum by Immunoassay Observa Value Referen Units Interpr Notes Date tion ce etation Range Mycopla NON-ERIKA NONREAC No No No Aug 29 sma CTIVE TIVE informa informa informa 2017 pneumon tion in tion in tion in 1:24 PM iae IgM source source source Ab data data data [Presen ce] in Serum by Immunoa ssay CBC W Auto Differential panel in Blood Observa Value Referen Units Interpr Notes Date tion ce etation Range Basophils 0 - 0.2 K/MM3 Normal No Aug 292016 1:24 [#/volume on in PM ] in source Blood by data Automated count Basophils 0.1 - 2.0 % Normal No Aug 29 /100 inform2016 1:24 leukocyte on in PM s in source Blood by data Automated count Eosinophi 0.0 - 0.4 K/mm3 Normal No Aug 29 ls 2016 1:24 [#/volume on in PM ] in source Blood by data Automated count Eosinophi 0.1 - % Normal No Aug 29 ls/100 12.0 inform2016 1:24 leukocyte on in PM s in source Blood by data Automated count Granulocy 1.8 - 7.8 K/mm3 Normal No Oct 3 ramesh informati 2016 1:24 [#/volume on in PM ] in source Blood by data Automated count Granulocy 37.0 - % Normal No Oct 3 ramesh/100 80.0 informati 2016 1:24 leukocyte on in PM s in source Blood by data Automated count Hematocri 37.0 - % Low No Aug 3 t [Volume 47.0 informati 2016 1:24 on in PM Fraction] source of Blood data Hemoglobi 12.2 - g/dL Low No Oct 3 n 16.2 informati 2016 1:24 [Mass/vol on in PM ume] in source Blood data Lymphocyt 0.7 - 4.5 K/mm3 Normal No Aug 3 es informati 2016 1:24 [#/volume on in PM ] in source Unspecifi data ed specimen by Automated count Lymphocyt 10 - 50.0 % Normal No Aug 3 es informati 2016 1:24 [#/volume on in PM ] in source Unspecifi data ed specimen by Automated count Erythrocy 27 - 31.2 pg Normal No Aug 3 te mean informati 2016 1:24 corpuscul on in PM ar source hemoglobi data n [Entitic mass] Erythrocy 31.8 - g/dl Low No Aug 3 te mean 35.4 informati 2016 1:24 corpuscul on in PM ar source hemoglobi data n concentra tion [Mass/vol ume] by Automated count Erythrocy 82.2 - fl Normal No Aug 3 te mean 97.8 informati 2016 1:24 corpuscul on in PM ar volume source [Entitic data volume] by Automated count Monocytes 0.1 - 1.0 K/mm3 Normal No Oct 3 informati 2016 1:24 [#/volume on in PM ] in source Blood by data Automated count Monocytes 1.7 - 9.3 % Normal No Oct 3 /100 informati 2017 1:24 leukocyte on in PM s in source Blood by data Automated count Platelets 142 - 424 K/mm3 Normal No Oct 3 informati 2016 1:24 [#/volume on in PM ] in source Blood data Erythrocy 4.2 - 5.4 M/mm3 Low No Oct 3 ramesh informati 2017 1:24 [#/volume on in PM ] in source Amniotic data fluid Erythrocy 11.5 - % Normal No Oct 3 te 17.5 informati 2016 1:24 distribut on in PM ion width source [Entitic data volume] by Automated count Leukocyte 4.8 - K/MM3 Normal No Oct 3 s 10.8 informati 2016 1:24 [#/volume on in PM ] in source Blood data Basic metabolic panel in Blood Observa Value Referen Units Interpr Notes Date tion ce etation Range Urea 7 - 18 mg/dL High No Oct 3 nitrogen informati 2016 1:24 [Mass/vol on in PM ume] in source Serum or data Plasma Calcium 8.5 - mg/dL Normal No Oct 3 [Mass/vol 10.1 informati 2016 1:24 ume] in on in PM Serum or source Plasma data Chloride 98 - 107 mmoL/L Normal No Oct 3 [Moles/vo informati 2016 1:24 lume] in on in PM Serum or source Plasma data Carbon 21.0 - mmoL/L High No Oct 3 dioxide, 32.0 informati 2016 1:24 total on in PM [Moles/vo source lume] in data Serum or Plasma Creatinin 0.55 - mg/dL High No Oct 3 e 1.02 informati 2016 1:24 [Mass/vol on in PM ume] in source Serum or data Plasma Creatinin 50 - 200 ML/MIN Normal No Oct 3 e renal informati 2016 1:24 clearance on in PM source predicted data by Cockcroft -Gault formula Estimated 59- ML/MIN Low REFERENCE Oct 3 RANGE: 2017 1:24 glomerula >60 PM r ML/MIN/1. filtratio 73 SQUARE n rate METERSIf (GF this patient is -A merican, then multiply theresult by 1.210. Glucose 74 - 106 mg/dL Normal No Oct 3 [Mass/vol informati 2016 1:24 ume] in on in PM Serum or source Plasma data Potassium 3.5 - 5.1 mmoL/L Normal No Oct 3 informati 2016 1:24 [Moles/vo on in PM lume] in source Serum or data Plasma Sodium 136 - 145 mmoL/L Normal No Oct 3 [Moles/vo informati 2016 1:24 lume] in on in PM Serum or source Plasma data Lactate [Moles/volume] in Blood Observa Value Referen Units Interpr Notes Date tion ce etation Range Lactate 0.4 - 2.0 mmol/L Normal No Jul 14 [Moles/vo informati 2017 4:40 lume] in on in PM Blood source data Gas panel in Arterial blood Observa Value Referen Units Interpr Notes Date tion ce etation Range Base -2.4-+2.3 MMOL/L High No Jun 18 excess in informati 2017 3:27 Arterial on in PM blood source data Arteria ACCEPTA No No No No Jun 18 l BLE informa informa informa informa 2017 patency tion in tion in tion in tion in 3:27 PM Wrist source source source source artery data data data data --pre arteria l punctur e Bicarbona 22.0 - MMOL/L High No Jul 14 te 26.0 informati 2017 3:27 [Moles/vo on in PM lume] in source Arterial data blood Oxygen No No No No Jul 14 content informati informati informati informati 2017 3:27 in on in on in on in on in PM Arterial source source source source blood data data data data Carbon 35.0 - MMHG High Jul 14 dioxide 45.0 2016 3:27 [Partial CRITICAL PM pressure] RESULTS in Arterial RESU blood LTS CALLED TO: 07/14/17 1533 Vicki,Otilia mariela pH of 7.35 - MMOL/L Normal No Jul 14 Arterial 7.45 informati 2017 3:27 blood on in PM source data Oxygen 80 - 100 MMHG Low No Jul 14 [Partial informati 2017 3:27 pressure] on in PM in source Arterial data blood Oxygen 90 - 100 % Low alert No Jul 14 saturatio informati 2016 3:27 n.calcula on in PM sonia from source oxygen data partial pressure in Arterial blood SOURCE RIGHT No No No No Jul 14 RADIAL informa informa informa informa 2017 tion in tion in tion in tion in 3:27 PM source source source source data data data data Carbon 23 - 27 MMOL/L High No Jul 14 dioxide, informati 2017 3:27 total on in PM [Moles/vo source lume] in data Arterial blood CBC W Auto Differential panel in Blood Observa Value Referen Units Interpr Notes Date tion ce etation Range Basophils 0 - 0.2 K/MM3 Normal No Jul 14 2016 3:00 [#/volume on in PM ] in source Blood by data Automated count Basophils 0.1 - 2.0 % Normal No Jun 18 /100 inform2016 3:00 leukocyte on in PM s in source Blood by data Automated count Eosinophi 0.0 - 0.4 K/mm3 Normal No Jun 18 ls 2016 3:00 [#/volume on in PM ] in source Blood by data Automated count Eosinophi 0.1 - % Normal No Jul 14 ls/100 12.0 inform2016 3:00 leukocyte on in PM s in source Blood by data Automated count Granulocy 1.8 - 7.8 K/mm3 High No Jun 18 ramesh inform2016 3:00 [#/volume on in PM ] in source Blood by data Automated count Granulocy 37.0 - % High No Jul 14 ramesh/100 80.0 2016 3:00 leukocyte on in PM s in source Blood by data Automated count Hematocri 37.0 - % Low Jul 14 t [Volume 47.0 ati 2016 3:00 on in PM Fraction] source of Blood data Hemoglobi 12.2 - g/dL Low No Jul 14 n 16.2 2016 3:00 [Mass/vol on in PM ume] in source Blood data Lymphocyt 0.7 - 4.5 K/mm3 Normal No Jul 14 es 2016 3:00 [#/volume on in PM ] in source Unspecifi data ed specimen by Automated count Lymphocyt 10 - 50.0 % Low No Jul 14 es 2016 3:00 [#/volume on in PM ] in source Unspecifi data ed specimen by Automated count Erythrocy 27 - 31.2 pg Normal No Jul 14 te mean 2016 3:00 corpuscul on in PM ar source hemoglobi data n [Entitic mass] Erythrocy 31.8 - g/dl Normal No Jul 14 te mean 35.4 2016 3:00 corpuscul on in PM ar source hemoglobi data n concentra tion [Mass/vol ume] by Automated count Erythrocy 82.2 - fl Normal No Jul 14 te mean 97.8 2016 3:00 corpuscul on in PM ar volume source [Entitic data volume] by Automated count Monocytes 0.1 - 1.0 K/mm3 Normal No Jul 142016 3:00 [#/volume on in PM ] in source Blood by data Automated count Monocytes 1.7 - 9.3 % Normal No Jun 18 /100 2016 3:00 leukocyte on in PM s in source Blood by data Automated count Platelet 7.4 - fl Low No Jun 18 mean 10.4 2016 3:00 volume on in PM [Entitic source volume] data in Blood by Automated count Platelets 142 - 424 K/mm3 No No Jul 14 informati 2016 3:00 [#/volume on in on in PM ] in source source Blood data data Erythrocy 4.2 - 5.4 M/mm3 Low No Jul 14 ramesh 2016 3:00 [#/volume on in PM ] in source Amniotic data fluid Erythrocy 11.5 - % Normal Jul 14 te 17.5 2016 3:00 distribut on in PM ion width source [Entitic data volume] by Automated count Leukocyte 4.8 - K/MM3 High No Jul 14 s 10.8 2016 3:00 [#/volume on in PM ] in source Blood data Differential panel, method unspecified - Observa Value Referen Units Interpr Notes Date ti ce etation Range LYMPH 11 10 - 50 % Normal No Jul 142016 tion in 3:00 PM source data Monocytes 2 - 9 % Normal No Jul 142016 3:00 leukocyte on in PM s in source Blood by data Automated count Platele NORMAL No No No No Jul 14 ts informa informa informa inform2016 [Presen tion in tion in tion in tion in 3:00 PM ce] in source source source source Blood data data data data by Light microsc opy Neutrophi 42 - 76 % High No Jul 14 ls 2016 3:00 [#/volume on in PM ] in source Blood by data Automated count Cells No #CELLS No No Jul 14 Counted ati ati 2016 3:00 Total [#] on in on in on in PM in Blood source source source data data data Comprehensive metabolic 2000 panel in Serum or Plasma Observa Value Referen Units Interpr Notes Date tion ce etation Range Albumin/G 1.1 - 1.8 No Low No Jun 18 lobulin informati ati 2016 3:00 [Mass on in on in PM ratio] in source source Serum or data data Plasma Albumin 3.4 - 5.0 gm/dL Normal No Jul 14 [Mass/vol informati 2017 3:00 ume] in on in PM Serum or source Plasma data Alkaline 46 - 116 U/L Normal No Jul 14 phosphata informati 2016 3:00 se on in PM [Enzymati source c data activity/ volume] in Serum or Plasma Bilirubin 0.2 - 1.0 mg/dL Normal No Jul 14 .total informati 2016 3:00 [Mass/vol on in PM ume] in source Serum or data Plasma Urea 7 - 18 mg/dL High No Jul 14 nitrogen informati 2016 3:00 [Mass/vol on in PM ume] in source Serum or data Plasma Calcium 8.5 - mg/dL Normal No Jul 14 [Mass/vol 10.1 informati 2016 3:00 ume] in on in PM Serum or source Plasma data Chloride 98 - 107 mmoL/L Normal No Jul 14 [Moles/vo informati 2016 3:00 lume] in on in PM Serum or source Plasma data Carbon 21.0 - mmoL/L High No Jul 14 dioxide, 32.0 informati 2016 3:00 total on in PM [Moles/vo source lume] in data Serum or Plasma Creatinin 0.55 - mg/dL High No Jul 14 e 1.02 informati 2016 3:00 [Mass/vol on in PM ume] in source Serum or data Plasma Creatinin 50 - 200 ML/MIN Normal No Jul 14 e renal informati 2016 3:00 clearance on in PM source predicted data by Cockcroft -Gault formula Estimated 59- ML/MIN Low REFERENCE Jul 14 RANGE: 2017 3:00 glomerula >60 PM r ML/MIN/1. filtratio 73 SQUARE n rate METERSIf (GF this patient is -A merican, then multiply theresult by 1.210. Globulin 1.3 - 3.2 gm/dL High No Jul 14 [Mass/vol informati 2016 3:00 ume] in on in PM Serum source data Glucose 74 - 106 mg/dL High No Jul 14 [Mass/vol informati 2016 3:00 ume] in on in PM Serum or source Plasma data Potassium 3.5 - 5.1 mmoL/L Normal No Jul 14 informati 2016 3:00 [Moles/vo on in PM lume] in source Serum or data Plasma Sodium 136 - 145 mmoL/L Normal No Jul 14 [Moles/vo informati 2016 3:00 lume] in on in PM Serum or source Plasma data Aspartate 15 - 37 U/L Normal No Jul 14 informati 2016 3:00 aminotran on in PM sferase source [Enzymati data c activity/ volume] in Serum or Plasma Alanine 12 - 78 U/L Normal No Jul 14 aminotran informati 2016 3:00 sferase on in PM [Enzymati source c data activity/ volume] in Serum or Plasma Protein 6.4 - 8.2 gm/dL Normal No Jul 14 [Mass/vol informati 2016 3:00 ume] in on in PM Serum or source Plasma data Basic metabolic panel in Blood Observa Value Referen Units Interpr Notes Date tion ce etation Range Urea 7 - 18 mg/dL High No Jun 10 nitrogen informati 2016 7:29 [Mass/vol on in AM ume] in source Serum or data Plasma Calcium 8.5 - mg/dL Low No Jun 10 [Mass/vol 10.1 informati 2016 7:29 ume] in on in AM Serum or source Plasma data Chloride 98 - 107 mmoL/L Normal No Jun 10 [Moles/vo informati 2016 7:29 lume] in on in AM Serum or source Plasma data Carbon 21.0 - mmoL/L High No Jun 10 dioxide, 32.0 informati 2016 7:29 total on in AM [Moles/vo source lume] in data Serum or Plasma Creatinin 0.55 - mg/dL High No Jun 10 e 1.02 informati 2016 7:29 [Mass/vol on in AM ume] in source Serum or data Plasma Creatinin 50 - 200 ML/MIN Normal No Jun 10 e renal informati 2016 7:29 clearance on in AM source predicted data by Cockcroft -Gault formula Estimated 59- ML/MIN Low REFERENCE Jun 10 RANGE: 2017 7:29 glomerula >60 AM r ML/MIN/1. filtratio 73 SQUARE n rate METERSIf (GF this patient is -A merican, then multiply theresult by 1.210. Glucose 74 - 106 mg/dL Normal No Jun 10 [Mass/vol informati 2016 7:29 ume] in on in AM Serum or source Plasma data Potassium 3.5 - 5.1 mmoL/L Normal No Jun 10 informati 2016 7:29 [Moles/vo on in AM lume] in source Serum or data Plasma Sodium 136 - 145 mmoL/L Normal No Jun 10 [Moles/vo informati 2016 7:29 lume] in on in AM Serum or source Plasma data Vancomycin [Mass/volume] in Serum or Plasma --trough Observa Value Referen Units Interpr Notes Date tion ce etation Range Vancomyci 10.0 - mcg/mL Normal No Jun 10 n 20.0 informati 2016 7:29 [Mass/vol on in AM ume] in source Serum or data Plasma --trough Basic metabolic panel in Blood Observa Value Referen Units Interpr Notes Date tion ce etation Range Urea 7 - 18 mg/dL High No Jun 07 nitrogen informati 2016 2:25 [Mass/vol on in PM ume] in source Serum or data Plasma Calcium 8.5 - mg/dL Low No Jun 07 [Mass/vol 10.1 informati 2016 2:25 ume] in on in PM Serum or source Plasma data Chloride 98 - 107 mmoL/L Normal No Jun 07 [Moles/vo informati 2016 2:25 lume] in on in PM Serum or source Plasma data Carbon 21.0 - mmoL/L High No Jun 07 dioxide, 32.0 informati 2016 2:25 total on in PM [Moles/vo source lume] in data Serum or Plasma Creatinin 0.55 - mg/dL High No Jun 07 e 1.02 informati 2016 2:25 [Mass/vol on in PM ume] in source Serum or data Plasma Creatinin 50 - 200 ML/MIN Normal No Jun 07 e renal informati 2016 2:25 clearance on in PM source predicted data by Cockcroft -Gault formula Estimated 59- ML/MIN Low REFERENCE Jun 07 RANGE: 2017 2:25 glomerula >60 PM r ML/MIN/1. filtratio 73 SQUARE n rate METERSIf (GF this patient is -A merican, then multiply theresult by 1.210. Glucose 74 - 106 mg/dL High No Jun 07 [Mass/vol informati 2016 2:25 ume] in on in PM Serum or source Plasma data Potassium 3.5 - 5.1 mmoL/L Normal No Jun 07 informati 2016 2:25 [Moles/vo on in PM lume] in source Serum or data Plasma Sodium 136 - 145 mmoL/L Normal No Jun 07 [Moles/vo informati 2016 2:25 lume] in on in PM Serum or source Plasma data Vancomycin [Mass/volume] in Serum or Plasma --trough Observa Value Referen Units Interpr Notes Date tion ce etation Range Vancomyci 10.0 - mcg/mL High RESULTS Jun 07 n 20.0 CALLED TO 2017 2:25 [Mass/vol PM ume] in PHARMACIS Serum or T: REJI Plasma B. --trough 7 1447 O'Kevin,Ka itlyn Vancomycin [Mass/volume] in Serum or Plasma --trough Observa Value Referen Units Interpr Notes Date ti ce etation Range Vancomyci 10.0 - mcg/mL Normal No Jun 04 n 20.0 informati 2016 [Mass/vol on in 12:45 PM ume] in source Serum or data Plasma --trough Basic metabolic panel in Blood Observa Value Referen Units Interpr Notes Date ti ce etation Range Urea 7 - 18 mg/dL High No Jun 03 nitrogen informati 2016 6:15 [Mass/vol on in AM ume] in source Serum or data Plasma Calcium 8.5 - mg/dL Normal No Jun 03 [Mass/vol 10.1 informati 2016 6:15 ume] in on in AM Serum or source Plasma data Chloride 98 - 107 mmoL/L Normal No Jun 03 [Moles/vo informati 2016 6:15 lume] in on in AM Serum or source Plasma data Carbon 21.0 - mmoL/L High No Jun 03 dioxide, 32.0 informati 2016 6:15 total on in AM [Moles/vo source lume] in data Serum or Plasma Creatinin 0.55 - mg/dL High No Jun 03 e 1.02 informati 2016 6:15 [Mass/vol on in AM ume] in source Serum or data Plasma Creatinin 50 - 200 ML/MIN Normal No Jun 03 e renal informati 2017 6:15 clearance on in AM source predicted data by Cockcroft -Gault formula Estimated 59- ML/MIN Low REFERENCE Jun 03 RANGE: 2017 6:15 glomerula >60 AM r ML/MIN/1. filtratio 73 SQUARE n rate METERSIf (GF this patient is -A merican, then multiply theresult by 1.210. Glucose 74 - 106 mg/dL High No Jun 03 [Mass/vol ati 2016 6:15 ume] in on in AM Serum or source Plasma data Potassium 3.5 - 5.1 mmoL/L Normal No Jun 032016 6:15 [Moles/vo on in AM lume] in source Serum or data Plasma Sodium 136 - 145 mmoL/L Normal No Jun 03 [Moles/vo 2016 6:15 lume] in on in AM Serum or source Plasma data Streptococcus pyogenes Ag [Presence] in Unspecified specimen Observa Value Referen Units Interpr Notes Date tion ce etation Range Strepto NEGATIV No No No No Jun 02 coccus E informa informa informa informa 2017 pyogene tion in tion in tion in tion in 11:30 s Ag source source source source AM [Presen data data data data ce] in Unspeci fied specime n Gas panel in Arterial blood Observa Value Referen Units Interpr Notes Date ti ce etation Range Base -2.4-+2.3 MMOL/L High No Jun 02 excess in 2016 Arterial on in 10:57 AM blood source data Arteria ACCEPTA No No No No Jun 02 l BLE informa informa informa informa 2017 patency tion in tion in tion in tion in 10:57 Wrist source source source source AM artery data data data data --pre arteria l punctur e Bicarbona 22.0 - MMOL/L High No Jun 02 te 26.0 2016 [Moles/vo on in 10:57 AM lume] in source Arterial data blood Carbon 35.0 - MMHG High Jun 02 dioxide 45.0 2016 [Partial CRITICAL 10:57 AM pressure] RESULTS in Arterial RESU blood LTS CALLED TO: VELMA 06/02/17 1102 Savita on,Yamileth pH of 7.35 - MMOL/L Normal No Jun 02 Arterial 7.45 2016 blood on in 10:57 AM source data Oxygen 80 - 100 MMHG Low No Jun 02 [Partial informati 2016 pressure] on in 10:57 AM in source Arterial data blood Oxygen 90 - 100 % Low No Jun 02 saturatio 2016 n.calcula on in 10:57 AM sonia from source oxygen data partial pressure in Arterial blood SOURCE LEFT No No No No Jun 02 RADIAL informa informa informa informa 2017 tion in tion in tion in tion in 10:57 source source source source AM data data data data Carbon 23 - 27 MMOL/L High No Jun 02 dioxide, informati 2016 total on in 10:57 AM [Moles/vo source lume] in data Arterial blood Fibrin D-dimer FEU [Mass/volume] in Platelet poor plasma Observa Value Referen Units Interpr Notes Date ti ce etation Range Fibrin 0 - 400 ng/mL High Jun 02 D-dimer alert NOTIFICAT 2017 FEU ION 10:45 AM [Mass/vol RESULT ume] in The Platelet D-Dimer poor values plasma are presented in units of mass(ng/m L) ofD-Dimer units(DDU ).This test has been FDA approved as an aid in the assessmen tand evaluatio n of suspected DIC, and thromboem bolic eventsinc luding PE and DVT. However, it does not have approvalf or cut-off values for the exclusion of these condition s. Natriutietic peptide B [Mass/volume] in Serum or Plasma Observa Value Referen Units Interpr Notes Date ti ce etation Range Natriutie 0 - 100 pg/mL Normal No Jun 02 tic 2016 peptide B on in 10:45 AM source [Mass/vol data ume] in Serum or Plasma Cardiac enzymes Observa Value Referen Units Interpr Notes Date ti ce etation Range Creatine 0 - 4.0 U/L Normal No Jun 02 kinase.MB informati 2016 /Creatine on in 10:45 AM source kinase.to data jermain [Ratio] in Serum or Plasma Creatine 0.0 - 3.6 ng/mL Normal No Jun 02 kinase.MB informati 2016 on in 10:45 AM [Mass/vol source ume] in data Serum or Plasma Creatine 26 - 192 U/L Normal No Jun 02 kinase informati 2016 [Enzymati on in 10:45 AM c source activity/ data volume] in Serum or Plasma Troponin 0.00 - ng/mL Normal No Jun 02 I.cardiac 0.06 informati 2016 on in 10:45 AM [Mass/vol source ume] in data Serum or Plasma Lactate [Moles/volume] in Blood Observa Value Referen Units Interpr Notes Date tion ce etation Range Lactate 0.4 - 2.0 mmol/L Normal No Jun 02 [Moles/vo informati 2016 lume] in on in 10:45 AM Blood source data Comprehensive metabolic 2000 panel in Serum or Plasma Observa Value Referen Units Interpr Notes Date tion ce etation Range Albumin/G 1.1 - 1.8 No Low No Jun 02 lobulin informati informati 2016 [Mass on in on in 10:45 AM ratio] in source source Serum or data data Plasma Albumin 3.4 - 5.0 gm/dL Low No Jun 02 [Mass/vol informati 2016 ume] in on in 10:45 AM Serum or source Plasma data Alkaline 46 - 116 U/L Normal No Jun 02 phosphata informati 2016 se on in 10:45 AM [Enzymati source c data activity/ volume] in Serum or Plasma Bilirubin 0.2 - 1.0 mg/dL Normal No Jun 02 .total informati 2016 [Mass/vol on in 10:45 AM ume] in source Serum or data Plasma Urea 7 - 18 mg/dL Normal No Jun 02 nitrogen informati 2016 [Mass/vol on in 10:45 AM ume] in source Serum or data Plasma Calcium 8.5 - mg/dL Low No Jun 02 [Mass/vol 10.1 informati 2016 ume] in on in 10:45 AM Serum or source Plasma data Chloride 98 - 107 mmoL/L Normal No Jun 02 [Moles/vo informati 2016 lume] in on in 10:45 AM Serum or source Plasma data Carbon 21.0 - mmoL/L High No Jun 02 dioxide, 32.0 informati 2017 total on in 10:45 AM [Moles/vo source lume] in data Serum or Plasma Creatinin 0.55 - mg/dL High No Jun 02 e 1.02 informati 2016 [Mass/vol on in 10:45 AM ume] in source Serum or data Plasma Creatinin 50 - 200 ML/MIN Normal No Jun 02 e renal informati 2017 clearance on in 10:45 AM source predicted data by Cockcroft -Gault formula Estimated 59- ML/MIN Low REFERENCE Jun 02 RANGE: 2017 glomerula >60 10:45 AM r ML/MIN/1. filtratio 73 SQUARE n rate METERSIf (GF this patient is -A merican, then multiply theresult by 1.210. Globulin 1.3 - 3.2 gm/dL High No Jun 02 [Mass/vol informati 2016 ume] in on in 10:45 AM Serum source data Glucose 74 - 106 mg/dL Normal No Jun 02 [Mass/vol informati 2016 ume] in on in 10:45 AM Serum or source Plasma data Potassium 3.5 - 5.1 mmoL/L Normal No Jun 022016 [Moles/vo on in 10:45 AM lume] in source Serum or data Plasma Sodium 136 - 145 mmoL/L Normal No Jun 02 [Moles/vo informati 2016 lume] in on in 10:45 AM Serum or source Plasma data Aspartate 15 - 37 U/L Normal Jun 022016 aminotran on in 10:45 AM sferase source [Enzymati data c activity/ volume] in Serum or Plasma Alanine 12 - 78 U/L Normal No Jun 02 aminotran 2016 sferase on in 10:45 AM [Enzymati source c data activity/ volume] in Serum or Plasma Protein 6.4 - 8.2 gm/dL Normal No Jun 02 [Mass/vol informati 2016 ume] in on in 10:45 AM Serum or source Plasma data CBC W Auto Differential panel in Blood Observa Value Referen Units Interpr Notes Date tion ce etation Range Basophils 0 - 0.2 K/MM3 Normal No Jun 022016 [#/volume on in 10:45 AM ] in source Blood by data Automated count Basophils 0.1 - 2.0 % Normal No Jun 022016 leukocyte on in 10:45 AM s in source Blood by data Automated count Eosinophi 0.0 - 0.4 K/mm3 Normal No Jun 02 ls 2016 [#/volume on in 10:45 AM ] in source Blood by data Automated count Eosinophi 0.1 - % Normal No Jun 02 ls/100 12.0 2016 leukocyte on in 10:45 AM s in source Blood by data Automated count Granulocy 1.8 - 7.8 K/mm3 Normal No Jun 02 ramesh 2016 [#/volume on in 10:45 AM ] in source Blood by data Automated count Granulocy 37.0 - % High No Jun 02 ramesh/100 80.0 2016 leukocyte on in 10:45 AM s in source Blood by data Automated count Hematocri 37.0 - % Low No Jun 02 t [Volume 47.0 2016 on in 10:45 AM Fraction] source of Blood data Hemoglobi 12.2 - g/dL Low No Jun 02 n 16.2 2016 [Mass/vol on in 10:45 AM ume] in source Blood data Lymphocyt 0.7 - 4.5 K/mm3 Normal No Jun 02 es 2016 [#/volume on in 10:45 AM ] in source Unspecifi data ed specimen by Automated count Lymphocyt 10 - 50.0 % Normal No Jun 02 es 2016 [#/volume on in 10:45 AM ] in source Unspecifi data ed specimen by Automated count Erythrocy 27 - 31.2 pg Normal No Jun 02 te mean 2016 corpuscul on in 10:45 AM ar source hemoglobi data n [Entitic mass] Erythrocy 31.8 - g/dl Normal No Jun 02 te mean 35.4 2016 corpuscul on in 10:45 AM ar source hemoglobi data n concentra tion [Mass/vol ume] by Automated count Erythrocy 82.2 - fl Normal No Jun 02 te mean 97.8 2016 corpuscul on in 10:45 AM ar volume source [Entitic data volume] by Automated count Monocytes 0.1 - 1.0 K/mm3 Normal No Jun 022016 [#/volume on in 10:45 AM ] in source Blood by data Automated count Monocytes 1.7 - 9.3 % Normal No Jun 02 /100 2016 leukocyte on in 10:45 AM s in source Blood by data Automated count Platelet 7.4 - fl Low No Jun 02 mean 10.4 2016 volume on in 10:45 AM [Entitic source volume] data in Blood by Automated count Platelets 142 - 424 K/mm3 Low No Jun 022016 [#/volume on in 10:45 AM ] in source Blood data Erythrocy 4.2 - 5.4 M/mm3 Low No Jun 02 ramesh 2016 [#/volume on in 10:45 AM ] in source Amniotic data fluid Erythrocy 11.5 - % Normal No Jun 02 te 17.5 2016 distribut on in 10:45 AM ion width source [Entitic data volume] by Automated count Leukocyte 4.8 - K/MM3 Normal No Roosevelt 7 s 10.8 informati 2017 [#/volume on in 10:45 AM ] in source Blood data Comprehensive metabolic 2000 panel in Serum or Plasma Observa Value Referen Units Interpr Notes Date tion ce etation Range Albumin/G 1.1 - 1.8 No Low No Apr 16 lobulin informati informati 2017 6:13 [Mass on in on in AM ratio] in source source Serum or data data Plasma Albumin 3.4 - 5.0 gm/dL Low No Apr 16 [Mass/vol informati 2017 6:13 ume] in on in AM Serum or source Plasma data Alkaline 46 - 116 U/L Normal No Apr 16 phosphata informati 2017 6:13 se on in AM [Enzymati source c data activity/ volume] in Serum or Plasma Bilirubin 0.2 - 1.0 mg/dL Normal No Apr 16 .total informati 2017 6:13 [Mass/vol on in AM ume] in source Serum or data Plasma Urea 7 - 18 mg/dL High No Apr 16 nitrogen informati 2017 6:13 [Mass/vol on in AM ume] in source Serum or data Plasma Calcium 8.5 - mg/dL Normal No Apr 16 [Mass/vol 10.1 informati 2017 6:13 ume] in on in AM Serum or source Plasma data Chloride 98 - 107 mmoL/L Normal No Apr 16 [Moles/vo informati 2017 6:13 lume] in on in AM Serum or source Plasma data Carbon 21.0 - mmoL/L Normal No Apr 16 dioxide, 32.0 informati 2017 6:13 total on in AM [Moles/vo source lume] in data Serum or Plasma Creatinin 0.55 - mg/dL High No Apr 16 e 1.02 informati 2017 6:13 [Mass/vol on in AM ume] in source Serum or data Plasma Creatinin 50 - 200 ML/MIN Normal No Apr 16 e renal informati 2017 6:13 clearance on in AM source predicted data by Cockcroft -Gault formula Estimated 59- ML/MIN Low REFERENCE Apr 16 RANGE: 2017 6:13 glomerula >60 AM r ML/MIN/1. filtratio 73 SQUARE n rate METERSIf (GF this patient is -A merican, then multiply theresult by 1.210. Globulin 1.3 - 3.2 gm/dL High No Apr 16 [Mass/vol informati 2017 6:13 ume] in on in AM Serum source data Glucose 74 - 106 mg/dL High No Apr 16 [Mass/vol informati 2016 6:13 ume] in on in AM Serum or source Plasma data Potassium 3.5 - 5.1 mmoL/L Normal No May 12 informati 2016 6:13 [Moles/vo on in AM lume] in source Serum or data Plasma Sodium 136 - 145 mmoL/L Normal No May 12 [Moles/vo informati 2016 6:13 lume] in on in AM Serum or source Plasma data Aspartate 15 - 37 U/L Normal No May 12 informati 2016 6:13 aminotran on in AM sferase source [Enzymati data c activity/ volume] in Serum or Plasma Alanine 12 - 78 U/L Normal No May 12 aminotran informati 2016 6:13 sferase on in AM [Enzymati source c data activity/ volume] in Serum or Plasma Protein 6.4 - 8.2 gm/dL Normal May 12 [Mass/vol informati 2016 6:13 ume] in on in AM Serum or source Plasma data CBC W Auto Differential panel in Blood Observa Value Referen Units Interpr Notes Date tion ce etation Range Basophils 0 - 0.2 K/MM3 Normal No May 12 informati 2016 6:13 [#/volume on in AM ] in source Blood by data Automated count Basophils 0.1 - 2.0 % Normal No Apr 16 / informati 2017 6:13 leukocyte on in AM s in source Blood by data Automated count Eosinophi 0.0 - 0.4 K/mm3 Normal No May 12 ls informati 2016 6:13 [#/volume on in AM ] in source Blood by data Automated count Eosinophi 0.1 - % Normal May 12 ls/100 12.0 informati 2017 6:13 leukocyte on in AM s in source Blood by data Automated count Granulocy 1.8 - 7.8 K/mm3 Normal No May 12 ramesh informati 2017 6:13 [#/volume on in AM ] in source Blood by data Automated count Granulocy 37.0 - % High No May 12 ramesh/100 80.0 informati 2016 6:13 leukocyte on in AM s in source Blood by data Automated count Hematocri 37.0 - % Low May 12 t [Volume 47.0 informati 2017 6:13 on in AM Fraction] source of Blood data Hemoglobi 12.2 - g/dL Low No Apr 16 n 16.2 informati 2017 6:13 [Mass/vol on in AM ume] in source Blood data Lymphocyt 0.7 - 4.5 K/mm3 Normal No Apr 16 es informati 2017 6:13 [#/volume on in AM ] in source Unspecifi data ed specimen by Automated count Lymphocyt 10 - 50.0 % Normal No Apr 16 es informati 2017 6:13 [#/volume on in AM ] in source Unspecifi data ed specimen by Automated count Erythrocy 27 - 31.2 pg Normal No Apr 16 te mean informati 2017 6:13 corpuscul on in AM ar source hemoglobi data n [Entitic mass] Erythrocy 31.8 - g/dl Normal No Apr 16 te mean 35.4 informati 2017 6:13 corpuscul on in AM ar source hemoglobi data n concentra tion [Mass/vol ume] by Automated count Erythrocy 82.2 - fl Normal No Apr 16 te mean 97.8 informati 2017 6:13 corpuscul on in AM ar volume source [Entitic data volume] by Automated count Monocytes 0.1 - 1.0 K/mm3 Normal No Apr 16 informati 2017 6:13 [#/volume on in AM ] in source Blood by data Automated count Monocytes 1.7 - 9.3 % Normal No Eddie 16 /100 informati 2017 6:13 leukocyte on in AM s in source Blood by data Automated count Platelet 7.4 - fl Low No Apr 16 mean 10.4 informati 2017 6:13 volume on in AM [Entitic source volume] data in Blood by Automated count Platelets 142 - 424 K/mm3 Normal No Apr 16 informati 2017 6:13 [#/volume on in AM ] in source Blood data Erythrocy 4.2 - 5.4 M/mm3 Low No Apr 16 ramesh informati 2017 6:13 [#/volume on in AM ] in source Amniotic data fluid Erythrocy 11.5 - % Normal No Apr 16 te 17.5 informati 2017 6:13 distribut on in AM ion width source [Entitic data volume] by Automated count Leukocyte 4.8 - K/MM3 Normal No Apr 16 s 10.8 informati 2017 6:13 [#/volume on in AM ] in source Blood data Lactate [Moles/volume] in Blood Observa Value Referen Units Interpr Notes Date tion ce etation Range Lactate 0.4 - 2.0 mmol/L Normal No Apr 14 [Moles/vo informati 2016 9:55 lume] in on in PM Blood source data CBC W Auto Differential panel in Blood Observa Value Referen Units Interpr Notes Date tion ce etation Range Basophils 0 - 0.2 K/MM3 Normal No Apr 14 informati 2016 9:55 [#/volume on in PM ] in source Blood by data Automated count Basophils 0.1 - 2.0 % Normal No Apr 14 /100 informati 2017 9:55 leukocyte on in PM s in source Blood by data Automated count Eosinophi 0.0 - 0.4 K/mm3 Normal No May 10 ls informati 2016 9:55 [#/volume on in PM ] in source Blood by data Automated count Eosinophi 0.1 - % Normal No May 10 ls/100 12.0 informati 2016 9:55 leukocyte on in PM s in source Blood by data Automated count Granulocy 1.8 - 7.8 K/mm3 Normal No May 10 ramesh informati 2017 9:55 [#/volume on in PM ] in source Blood by data Automated count Granulocy 37.0 - % Normal No May 10 ramesh/100 80.0 informati 2016 9:55 leukocyte on in PM s in source Blood by data Automated count Hematocri 37.0 - % Low No May 10 t [Volume 47.0 informati 2016 9:55 on in PM Fraction] source of Blood data Hemoglobi 12.2 - g/dL Low No May 10 n 16.2 informati 2016 9:55 [Mass/vol on in PM ume] in source Blood data Lymphocyt 0.7 - 4.5 K/mm3 Normal No May 10 es informati 2016 9:55 [#/volume on in PM ] in source Unspecifi data ed specimen by Automated count Lymphocyt 10 - 50.0 % Normal May 10 es informati 2016 9:55 [#/volume on in PM ] in source Unspecifi data ed specimen by Automated count Erythrocy 27 - 31.2 pg Normal No May 10 te mean informati 2016 9:55 corpuscul on in PM ar source hemoglobi data n [Entitic mass] Erythrocy 31.8 - g/dl Normal No Eddie 14 te mean 35.4 informati 2017 9:55 corpuscul on in PM ar source hemoglobi data n concentra tion [Mass/vol ume] by Automated count Erythrocy 82.2 - fl Normal No Apr 14 te mean 97.8 informati 2017 9:55 corpuscul on in PM ar volume source [Entitic data volume] by Automated count Monocytes 0.1 - 1.0 K/mm3 Normal No Apr 14 informati 2017 9:55 [#/volume on in PM ] in source Blood by data Automated count Monocytes 1.7 - 9.3 % Normal No Apr 14 /100 informati 2017 9:55 leukocyte on in PM s in source Blood by data Automated count Platelet 7.4 - fl Low No May 10 mean 10.4 informati 2017 9:55 volume on in PM [Entitic source volume] data in Blood by Automated count Platelets 142 - 424 K/mm3 No No Apr 14 informati informati 2017 9:55 [#/volume on in on in PM ] in source source Blood data data Erythrocy 4.2 - 5.4 M/mm3 Low No Apr 14 ramesh informati 2017 9:55 [#/volume on in PM ] in source Amniotic data fluid Erythrocy 11.5 - % Normal No Apr 14 te 17.5 informati 2017 9:55 distribut on in PM ion width source [Entitic data volume] by Automated count Leukocyte 4.8 - K/MM3 Normal No Apr 14 s 10.8 informati 2017 9:55 [#/volume on in PM ] in source Blood data
--- OUTSIDE RECORDS SUMMARY | 2017-09-07 06:33 | External Medical Summary Rpt ---
[...] cause disease .Perfor med at: - [facility] [address] [id number] Directo r: Jean Marie Nino MD, Phone: [phone] Mycoplasma pneumoniae IgM Ab [Presence] in Serum [...]
== END 2017-09-03 14:00 | disposition home or self-care (01) | DRG 178 ==
LOC: 2ND 11:44
PROVIDERS: Family Medicine
DX: J15.29 Pneumonia due to other staphylococcus (principal); J96.11 Chronic respiratory failure with hypoxia; J20.8 Acute bronchitis due to other specified organisms; D80.3 Selective deficiency of immunoglobulin G [IgG] subclasses; J44.0 Chronic obstructive pulmonary disease with (acute) lower respiratory infection; G47.33 Obstructive sleep apnea (adult) (pediatric); I10 Essential (primary) hypertension; K21.9 Gastro-esophageal reflux disease without esophagitis; F41.9 Anxiety disorder, unspecified; F32.9 Major depressive disorder, single episode, unspecified; Z88.5 Allergy status to narcotic agent; Z99.81 Dependence on supplemental oxygen; Z79.82 Long term (current) use of aspirin; Z79.899 Other long term (current) drug therapy; Z79.52 Long term (current) use of systemic steroids; Z79.51 Long term (current) use of inhaled steroids; Z88.2 Allergy status to sulfonamides; Z88.8 Allergy status to other drugs, medicaments and biological substances
CPT/HCPCS: J3370

== ENCOUNTER 2017-09-22 13:25 | Outpatient (CLI) | payer MEDICARE ==
[~2017-09-22] VITALS: Ht 165.1 cm; Wt 88.9 kg
[~2017-09-22 13:25] MED LIST changes: +ACETYLCYSTEINE IN; +PREDNISONE 10MG10 MG PO
[2017-09-22 14:15] VITALS: BP 130/66
[2017-09-22 14:45] VITALS: BP 140/57
[2017-09-22 15:15] VITALS: BP 99/38
[2017-09-22 15:55] VITALS: BP 85/33
[2017-09-22 16:25] VITALS: BP 98/64
== END 2017-09-22 16:50 | disposition home or self-care (01) ==
LOC: COP 13:25
DX: D80.3 Selective deficiency of immunoglobulin G [IgG] subclasses (principal)
CPT/HCPCS: J1459; J1642

== ENCOUNTER 2017-09-26 01:54 | Inpatient (IN) | payer MEDICARE ==
[~2017-09-26] VITALS: Ht 165.1 cm; Wt 96.3 kg
[2017-09-26] VITALS (9 sets, daily range): BP systolic 73–124; BP diastolic 45–71
[2017-09-26 02:07] LABS: ALLEN'S TEST PATIENT UNABLE; ARTERIAL PO2 57.2 MMHG (80-100); ARTERIAL TCO2 34.8 MMOL/L (23-27)
--- OUTSIDE RECORDS SUMMARY | 2017-09-26 02:31 | External Medical Summary Rpt | CCD ---
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 482.9 Bacterial [place] pneumonia [facility] 496 Chronic [place] obstructive [facility] disease D64.9 ANEMIA, UNSPECIFIED J18.9 PNEUMONIA, UNSPECIFIED ORGANISM J20.9 ACUTE BRONCHITIS, UNSPECIFIED J40 BRONCHITIS, NOT SPECIFIED ACUTE OR CHRONIC J44.1 CHRONIC OBSTRUCTIVE PULMONARY DISEASE W (ACUTE) EXACERBATIO N J44.9 CHRONIC OBSTRUCTIVE PULMONARY DISEASE, UNSPECIFIED 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 J96.90 RESPIRATORY FAILURE, UNSP, UNSP W HYPOXIA OR HYPERCAPNIA N28.9 DISORDER OF KIDNEY AND URETER, UNSPECIFIED Allergies, Adverse Reactions, Alerts Type Drug Allergy [...] ti 4 ve MG /2 ML AL WA 00 03 3 No OM 64 -2 [...] 51 03 3 No TO 07 -2 WA 90 3- Lo OL 25 20 ng [...] Ac MG ti ve Ta bl et WA 00 03 3 No OT 00 -2 [...] Order Detail nces retati t Range on Arterial blood gas (09-26-2017 02:02) Arteria = 7.0 -2.4-+2 complet l blood 017 MMOL/L .3 ed base 02:02 excess determi nation Arteria = 32.9 22.0-26 complet l blood 017 MMOL/L .0 ed 02:02 [place] measure ment ( Arteria = 44%, complet l blood 017 6 LPM ed total 02:02 NC oxygen content carmelita Arteria = 63.5 35.0-45 complet l blood 017 MMHG .0 ed 02:02 partial pressur e of carbo Comment: CRITICAL RESULTS Comment: RESULTS CALLED TO: RESULTS TAKEN STAT TO DR CALDWELL Comment: 09/26/17 0206 Monet Urbina Arteria = 7.33 7.35-7. complet l blood 017 MMOL/L 45 ed pH 02:02 measure ment Arteria = 57.2 80-100 complet l whole 017 MMHG ed blood 02:02 PO2 at POC Arteria = 88.5 90-100 complet l blood 017 % ed oxygen 02:02 saturat ion calcula Arteria = 34.8 23-27 complet l blood 017 MMOL/L ed carbon 02:02 dioxide , total norma Tejas's PATIENT complet test 017 UNABLE ed before 02:02 arteria PATIENT l blood UNABLE gas L Gas panel in Arterial blood (09-26-2017 02:02) Arteria PATIENT complet l 017 UNABLE ed patency 02:02 Wrist artery --pre arteria l punctur e Urine Legionella pneumophila 1 antigen d (08-29-2017 15:20) Urine Negativ Negativ complet Legione 017 e e ed lla 15:20 Negativ pneumop e L ross 1 antigen d Comment: Presumptive negative for L. pneumophila serogroup 1 antigen Comment: in urine, suggesting no recent or current infection. Comment: Legionnaires' disease cannot be ruled out since other Comment: serogroups and species may also cause disease. Comment: Performed at: [facility] Comment: [id number], [place] [id number] Comment: Auditor Internal: Jean Marie Nino MD, Phone: [phone] Legionella pneumophila 1 Ag [Presence] in Urine by Immunoassay (08-29-2017 15:20) Legione Negativ Negativ complet lla 017 e e ed pneumop 15:20 orss 1 Ag [Presen ce] in Urine by [...] with AUTO DIFF (02-19-2013 06:30) WBC # 02-19-2 7.3 4.8-10. complet Bld 013 K/MM3 8 ed Auto 06:30 RBC # 02-19-2 3.92 4.2-5.4 complet Bld 013 M/mm3 ed [...] 013 4 ed T 06:30 VOLUME Granulo 03-26-2 68.2 % 37.0-80 complet cytes 013 .0 ed Fr Bld 06:30 Auto LYMPH % 03-26-2 20.8 % 10-50.0 complet 013 ed 06:30 Monocyt 03-26-2 5.4 % 1.7-9.3 complet es Fr 013 ed Bld 06:30 Auto Eosinop 03-26-2 5.5 % 0.1-12. complet hil Fr 013 0 ed Bld 06:30 Auto Basophi 03-26-2 0.2 % 0.1-2.0 complet ls Fr 013 ed Bld 06:30 Auto Granulo 03-26-2 5.0 1.8-7.8 complet cytes # 013 K/mm3 ed Bld 06:30 Auto Lymphoc -26-2 1.5 0.7-4.5 complet ytes Fr 013 K/mm3 ed Bld 06:30 Auto Monocyt 03-26-2 0.4 0.1-1.0 complet es # 013 K/mm3 ed Bld 06:30 Auto Eosinop 03-26-2 0.4 0.0-0.4 complet hil # 013 K/mm3 ed Bld 06:30 Auto Basophi 03-26-2 0.0 0-0.2 complet ls # 013 K/MM3 [...] complet Bld-mCn 013 ed c 06:28 Creat 1.1 0.6-1.0 complet SerPl-m 013 mg/dL ed Cnc 06:28 ESTIMAT 78 50-200 complet ED 013 ML/MIN ed [...] with AUTO DIFF (02-18-2013 06:28) WBC # 02-18- 7.6 4.8-10. complet Bld 013 K/MM3 8 ed Auto 06:28 RBC # 4.02 4.2-5.4 complet Bld 013 M/mm3 ed Auto 06:28 Hgb 10.8 12.2-16 complet Bld-mCn 013 g/dL .2 ed c 06:28 Hct Fr 33.9 % 37.0-47 complet Bld 013 .0 ed 06:28 MCV RBC 84.5 fl 82.2-97 complet 013 .8 ed 06:28 MCH RBC 26.8 pg 27-31.2 complet Qn 013 ed Auto 06:28 MEAN 31.8 31.8-35 complet CORPUSC 013 g/dl .4 ed ULAR 06:28 HGB CONC RDW RBC 17.2 % 11.5-17 complet Auto 013 .5 ed 06:28 Platele 307 142-424 complet t Bld 013 K/mm3 ed Ql 06:28 Manual MEAN 6.7 fl 7.4-10. complet PLATELE 013 4 ed T 06:28 VOLUME Granulo 70.6 % 37.0-80 complet cytes 013 .0 ed Fr Bld 06:28 Auto LYMPH % 02-18-2 19.9 % 10-50.0 complet 013 ed 06:28 Monocyt 03-25-2 4.1 % 1.7-9.3 complet es Fr 013 ed Bld 06:28 Auto Eosinop 03-25-2 5.3 % 0.1-12. complet hil Fr 013 0 ed Bld 06:28 Auto Basophi 03-25-2 0.1 % 0.1-2.0 complet ls Fr 013 ed Bld 06:28 Auto Granulo -25-2 5.3 1.8-7.8 complet cytes # 013 K/mm3 ed Bld 06:28 Auto Lymphoc -25-2 1.5 0.7-4.5 complet ytes Fr 013 K/mm3 ed Bld 06:28 Auto Monocyt -25-2 0.3 0.1-1.0 complet es # 013 K/mm3 ed Bld 06:28 Auto Eosinop -25-2 0.4 0.0-0.4 complet hil # 013 K/mm3 ed Bld 06:28 Auto Basophi 25-2 0.0 0-0.2 complet ls # 013 K/MM3 ed Bld 06:28 Auto BASIC METABOLIC PANEL (02-17-2013 02:20) Glucose 02-17-2 101 74-106 complet 013 mg/dL ed Bld-mCn 02:20 c BUN 02-17-2 9 mg/dL 7-18 complet Bld-mCn 013 ed c 02:20 Creat 02-17-2 1.1 0.6-1.0 complet SerPl-m 013 mg/dL ed Cnc 02:20 ESTIMAT 02-17-2 76 50-200 complet ED 013 ML/MIN ed CREATIN 02:20 INE CLEARAN CE GFR 02-17-2 50 59- complet (ESTIMA 013 ML/MIN ed LIEN) 02:20 Sodium 02-17-2 139 136-145 complet SerPl-s 013 mmoL/L ed Cnc 02:20 Potassi 02-17-2 3.5 3.5-5.1 complet um 013 mmoL/L ed SerPl-s 02:20 Cnc Chlorid 02-17- 99 98-107 complet e 013 mmoL/L ed SerPl-s 02:20 Cnc CO2 02-17-2 34 21.0-32 complet SerPl-s 013 mmoL/L .0 ed Cnc 02:20 Calcium 03-24-2 8.6 8.5-10. complet 013 mg/dL 1 ed SerPl-m 02:20 Cnc CBC with AUTO DIFF (02-17-2013 02:20) WBC # 03-24-2 8.3 4.8-10. complet Bld 013 K/MM3 8 ed Auto 02:20 RBC # 0324-2 3.86 4.2-5.4 complet Bld 013 M/mm3 ed Auto 02:20 Hgb 24-2 10.5 12.2-16 complet Bld-mCn 013 g/dL .2 ed c 02:20 Hct Fr 02-17-2 31.7 % 37.0-47 complet Bld 013 .0 ed 02:20 MCV RBC 24-2 82.0 fl 82.2-97 complet 013 .8 ed 02:20 MCH RBC 24-2 27.2 pg 27-31.2 complet Qn 013 ed Auto 02:20 MEAN 02-17-2 33.1 31.8-35 complet CORPUSC 013 g/dl .4 ed ULAR 02:20 HGB CONC RDW RBC 24-2 17.3 % 11.5-17 complet Auto 013 .5 ed 02:20 Platele 24-2 263 142-424 complet t Bld 013 K/mm3 ed Ql 02:20 Manual MEAN 02-17-2 7.6 fl 7.4-10. complet PLATELE 013 4 ed T 02:20 VOLUME Granulo 24-2 75.2 % 37.0-80 complet cytes 013 .0 ed Fr Bld 02:20 Auto LYMPH % 24-2 16.5 % 10-50.0 complet 013 ed 02:20 Monocyt -24-2 4.4 % 1.7-9.3 complet es Fr 013 [...] 013 K/mm3 ed Bld 02:20 Auto Eosinop 24-2 0.3 0.0-0.4 complet hil # 013 K/mm3 ed Bld 02:20 Auto Basophi 24-2 0.0 0-0.2 complet ls # 013 K/MM3 ed Bld 02:20 Auto Vit B12 Ser-mCnc (02-16-2013 08:30) Vit B12 02-16-2 400 200-110 complet 013 pg/mL 0 ed Ser-mCn 08:30 c Ferritin SerPl-mCnc (02-16-2013 08:30) Ferriti 02-16-2 80 8-388 complet n 013 ng/mL ed SerPl-m 08:30 Cnc THYROID STIM HORMONE (02-16-2013 08:30) THYROID 02-16-2 0.73 0.358-3 complet STIM 013 uIU/ml .740 ed HORMONE 08:30 Retics/100 RBC Fr Auto (02-16-2013 08:30) Retics/ -23-2 2.4 % 0.9-3.2 complet 100 RBC 013 ed Fr 08:30 Auto CBC with AUTO DIFF (02-16-2013 06:10) WBC # -23-2 10.9 4.8-10. complet Bld 013 K/MM3 8 ed Auto 06:10 RBC # 03-23-2 3.14 4.2-5.4 complet Bld 013 M/mm3 ed Auto 06:10 Hgb -23-2 8.3 12.2-16 complet Bld-mCn 013 g/dL .2 ed c 06:10 Hct Fr 23-2 25.9 % 37.0-47 complet Bld 013 .0 ed 06:10 MCV RBC -23-2 82.4 fl 82.2-97 complet 013 .8 ed 06:10 MCH RBC -23-2 26.4 pg 27-31.2 complet Qn 013 ed Auto 06:10 MEAN 23-2 32.0 31.8-35 complet CORPUSC 013 g/dl .4 ed ULAR 06:10 HGB CONC RDW RBC -23-2 17.6 % 11.5-17 complet Auto 013 .5 ed 06:10 Platele 03-23-2 303 142-424 complet t Bld 013 K/mm3 ed Ql 06:10 Manual MEAN -23-2 6.6 fl 7.4-10. complet PLATELE 013 4 ed T 06:10 VOLUME Granulo 03-23-2 83.5 % 37.0-80 complet cytes 013 .0 ed Fr Bld 06:10 Auto LYMPH % 03-23-2 11.3 % 10-50.0 complet 013 ed 06:10 Monocyt 03-23-2 3.2 % 1.7-9.3 complet es Fr 013 ed Bld 06:10 Auto Eosinop 03-23-2 1.9 % 0.1-12. complet hil Fr 013 [...] DIPSTIC K URINE -23-2 NEGATIV NEG complet BILIRUB 013 E ed IN - 01:00 DIPSTIC K URINE -23-2 NEGATIV NEG complet KETONE 013 E mg/dL ed 01:00 URINE -23-2 1.025 1.005-1 complet SPECIFI 013 UNK .030 ed C 01:00 GRAVITY URINE 02-16-2 NEGATIV NEG complet BLOOD 013 E ed 01:00 URINE 02-16-2 6.0 UNK 5.0-8.5 complet PH 013 ed 01:00 URINE 23-2 NEGATIV NEG complet PROTEIN 013 E mg/dL ed - 01:00 DIPSTIC K URINE 02-16-2 0.2 NEG complet UROBILI 013 E.U./dL ed NOGEN - 01:00 DIPSTIC K URINE 02-16-2 NEGATIV NEG complet NITRATE 013 E ed - 01:00 DIPSTIC K URINE 23-2 NEGATIV NEG complet LEUK 013 E ed ESTERAS 01:00 E URINE 02-16-2 3-5 O complet WBC 013 wbc/hpf ed 01:00 URINE 02-16-2 3-5 0-5 complet SQUAMOU 013 #/hpf ed S CELLS 01:00 URINE 02-16-2 3-5 NONE complet RENAL 013 #/HPF ed CELLS 01:00 COMPREHENSIVE METABOLIC PANEL (02-15-2013 16:25) Glucose 02-15- 132 74-106 complet 013 mg/dL ed Bld-mCn 16:25 c BUN 02-15-2 15 7-18 complet Bld-mCn 013 mg/dL ed c 16:25 Creat 02-15-2 1.3 0.6-1.0 complet SerPl-m 013 mg/dL ed Cnc 16:25 ESTIMAT 02-15-2 64 50-200 complet ED 013 ML/MIN ed CREATIN 16:25 INE CLEARAN CE GFR 02-15-2 41 59- complet (ESTIMA 013 ML/MIN ed LIEN) 16:25 Sodium 02-15-2 136 136-145 complet SerPl-s 013 mmoL/L ed Cnc 16:25 Potassi 02-15-2 4.0 3.5-5.1 complet um 013 mmoL/L ed SerPl-s 16:25 Cnc Chlorid 02-15- 95 98-107 complet e 013 mmoL/L ed SerPl-s 16:25 Cnc CO2 34 21.0-32 complet SerPl-s 013 mmoL/L .0 ed Cnc 16:25 Calcium 02-15- 8.5 8.5-10. complet 013 mg/dL 1 ed SerPl-m 16:25 Cnc Prot 22-2 7.6 6.4-8.2 complet SerPl-m 013 gm/dL ed Cnc 16:25 Albumin 22-2 2.8 3.4-5.0 complet 013 gm/dL ed SerPl-m 16:25 Cnc Globuli 22-2 4.8 1.3-3.2 complet n 013 gm/dL ed Ser-mCn 16:25 c Albumin 02-15-2 0.6 UNK 1.1-1.8 complet /Glob 013 ed SerPl-m 16:25 Rto Bilirub 02-15-2 0.4 0.2-1.0 complet 013 mg/dL ed SerPl-m 16:25 Cnc AST 02-15-2 22 U/L 15-37 complet SerPl-c 013 ed Cnc 16:25 ALT 02-15-2 28 U/L 30-65 complet SerPl-c 013 ed Cnc 16:25 ALP 02-15-2 94 U/L 50-136 complet SerPl-c 013 ed Cnc 16:25 CBC with AUTO DIFF (02-15-2013 16:25) WBC # 22-2 17.6 4.8-10. complet Bld 013 K/MM3 8 ed Auto 16:25 RBC # 22-2 3.43 4.2-5.4 complet Bld 013 M/mm3 ed Auto 16:25 Hgb 02-15-2 9.2 12.2-16 complet Bld-mCn 013 g/dL .2 ed c 16:25 Hct Fr 02-15-2 27.6 % 37.0-47 complet Bld 013 .0 ed 16:25 MCV RBC 02-15-2 80.3 fl 82.2-97 complet 013 .8 ed 16:25 MCH RBC 22-2 26.7 pg 27-31.2 complet Qn 013 ed Auto 16:25 MEAN 02-15-2 33.3 31.8-35 complet CORPUSC 013 g/dl .4 ed ULAR 16:25 HGB CONC RDW RBC 02-15-2 18.0 % 11.5-17 complet Auto 013 .5 ed 16:25 Platele 02-15-2 319 142-424 complet t Bld 013 K/mm3 ed Ql 16:25 Manual MEAN 03-22-2 6.6 fl 7.4-10. complet PLATELE 013 4 ed T 16:25 VOLUME Granulo -22-2 90.6 % 37.0-80 complet cytes 013 .0 ed Fr Bld 16:25 Auto LYMPH % 03-22-2 6.1 % 10-50.0 complet 013 ed 16:25 Monocyt 03-22-2 2.5 % 1.7-9.3 complet es Fr 013 ed Bld 16:25 Auto Eosinop 03-22-2 0.8 % 0.1-12. complet hil Fr 013 0 ed Bld 16:25 Auto Basophi 03-22-2 0.1 % 0.1-2.0 complet ls Fr 013 ed Bld 16:25 Auto Granulo -22-2 16.0 1.8-7.8 complet cytes # 013 K/mm3 ed Bld 16:25 Auto Lymphoc -22-2 1.1 0.7-4.5 complet ytes Fr 013 K/mm3 ed Bld 16:25 Auto Monocyt -22-2 0.4 0.1-1.0 complet es # 013 K/mm3 ed Bld 16:25 Auto Eosinop 03-22-2 0.1 0.0-0.4 complet hil # 013 K/mm3 ed Bld 16:25 Auto Basophi 03-22-2 0.0 0-0.2 complet ls # 013 K/MM3 ed Bld 16:25 Auto MYCOPLASMA IGM (RAPID) (02-15-2013 16:25) MYCOPLA 22-2 NON-ERIKA NONREAC complet SMA IGM 013 CTIVE TIVE ed 16:25 (RAPID) Procedures Procedure DOS Code Location Performer Comment PACKED 99.04 [facility] Jose Martin BA TRANSFUSI ON Encounters Encounter Start End Date Code Location Performer Type Date Emergency VANDANA Ian Caldwell MD (ER) 4 22:34 4 23:43 [facility] Inpatient IMP Ian Philippe MD (IN) 3 16:01 3 13:40 [facility]
--- OUTSIDE RECORDS SUMMARY | 2017-09-26 02:31 | External Medical Summary Rpt | CCD ---
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 Comment: Performed at: [facility] Comment: [address], [place] [id number] Comment: Tax Record Clerk: Jean Marie Nino MD, Phone: [phone] Legionella pneumophila 1 Ag [Presence] in Urine [...] Caldwell MD (ER) 4 22:34 4 23:43 [facility] In[facility] IMP Ian Philippe MD (IN) 3 16:01 3 13:40 [facility]
--- OUTSIDE RECORDS SUMMARY | 2017-09-26 02:32 | External Medical Summary Rpt | CCD ---
Author Author , MANUEL JACKSON Address Unknown Phone [email or web address] Purpose Continuity of Care Document - through 2016
--- OUTSIDE RECORDS SUMMARY | 2017-09-26 02:32 | External Medical Summary Rpt | CCD ---
Author Author , MANUEL JACKSON Address Unknown Phone [email or web address] Purpose Continuity of Care Document - through 2016
--- OUTSIDE RECORDS SUMMARY | 2017-09-26 02:32 | External Medical Summary Rpt | CCD ---
Author Author , MANUEL Organization MANUEL Address Unknown Phone [email or web address] Immunization Name Date Rout CVX Reac Dose [...]
--- OUTSIDE RECORDS SUMMARY | 2017-09-26 02:32 | External Medical Summary Rpt | CCD ---
Author Author , MANUEL Organization MANUEL Address Unknown Phone [email or web address] Immunization Name Date Rout CVX Reac Dose [...]
--- OUTSIDE RECORDS SUMMARY | 2017-09-26 02:34 | External Medical Summary Rpt ---
Author Author MANUEL Production, MANUEL Production Organization [employer] Address Unknown Phone Unavailable Results Gas panel in Arterial blood Observa Value Referen Units Interpr Notes Date tion ce etation Range Base -2.4-+2.3 MMOL/L High No Oct 31 excess in informati 2017 2:02 Arterial on in AM blood source data Arteria PATIENT No No No No Oct 31 l UNABLE informa informa informa informa 2017 patency tion in tion in tion in tion in 2:02 AM Wrist source source source source artery data data data data --pre arteria l punctur e Bicarbona 22.0 - MMOL/L High No Oct 31 te 26.0 informati 2017 2:02 [Moles/vo on in AM lume] in source Arterial data blood Oxygen No No No No Oct 31 content informati informati informati informati 2017 2:02 in on in on in on in on in AM Arterial source source source source blood data data data data Carbon 35.0 - MMHG High Oct 31 dioxide 45.0 2016 2:02 [Partial CRITICAL AM pressure] RESULTS in Arterial RESU blood LTS CALLED TO: RESULTS TAKEN STAT TO DR CALDWELL [address] [place] pH of 7.35 - MMOL/L Low No Oct 31 Arterial 7.45 informati 2017 2:02 blood on in AM source data Oxygen 80 - 100 MMHG Low No Oct 31 [Partial informati 2017 2:02 pressure] on in AM in source Arterial data blood Oxygen 90 - 100 % Low No Oct 31 saturatio informati 2017 2:02 n.calcula on in AM sonia from source oxygen data partial pressure in Arterial blood Carbon 23 - 27 MMOL/L High No Oct 31 dioxide, informati 2017 2:02 total on in AM [Moles/vo source lume] in data Arterial blood Basic metabolic panel in Blood Observa Value Referen Units Interpr Notes Date tion ce etation Range DRAWN BY NURSE FROM PICC Urea 7 - 18 mg/dL High No Oct 6 nitrogen informati 2016 1:35 [Mass/vol on in PM ume] in source Serum or data Plasma Calcium 8.5 - mg/dL Low No Oct 6 [Mass/vol 10.1 informati 2016 1:35 ume] in on in PM Serum or source Plasma data Chloride 98 - 107 mmoL/L Normal No Oct 6 [Moles/vo informati 2016 1:35 lume] in on in PM Serum or source Plasma data Carbon 21.0 - mmoL/L High No Oct 6 dioxide, 32.0 informati 2016 1:35 total on in PM [Moles/vo source lume] in data Serum or Plasma Creatinin 0.55 - mg/dL High No Oct 6 e 1.02 informati 2016 1:35 [Mass/vol on in PM ume] in [...] mg/dL High No Oct 6 [Mass/vol informati 2016 1:35 ume] in on in PM Serum or source Plasma data Potassium 3.5 - 5.1 mmoL/L Normal No Oct 6 informati 2016 1:35 [Moles/vo on in PM lume] in source Serum or data Plasma Sodium 136 - 145 mmoL/L Normal No Oct 6 [Moles/vo informati 2016 1:35 lume] in on in PM Serum or source Plasma data Vancomycin [Mass/volume] in Serum or Plasma --trough Observa Value Referen Units Interpr Notes Date tion ce etation Range DRAWN BY NURSE FROM PICC Vancomyci 10.0 - mcg/mL Normal No Oct 6 n 20.0 informati 2016 1:35 [Mass/vol on in PM ume] in source Serum or data Plasma --trough Legionella pneumophila 1 Ag [Presence] in Urine by Immunoassay Observa Value Referen Units Interpr Notes Date tion ce etation Range Legione Negativ Negativ No No Presump Oct 3 lla e e informa informa tive 2017 pneumop tion in tion in negativ 3:20 PM ross 1 source source e for Ag data data L. [Presen pneumop ce] in ross Urine serogro by up 1 Immunoa antigen ssay in urine, suggest ing no recent or current infecti on.Legi onnaire s' disease cannot be ruled out since otherse rogroup s and species may also cause disease .Perfor med at: [facility] - [facility] [place] [id number] 61Lab Directo r: Jean Marie Nino MD, Phone: [phone] Mycoplasma pneumoniae IgM Ab [Presence] in Serum by Immunoassay Observa Value Referen Units Interpr Notes Date ti ce etation Range Mycopla NON-ERIKA NONREAC No [...] 0 - 0.2 K/MM3 Normal No Aug 29 inform2016 1:24 [#/volume on in PM ] in source Blood by data Automated count Basophils 0.1 - 2.0 % Normal No Aug 29 / inform2016 1:24 leukocyte on in PM s in source Blood by data Automated count Eosinophi 0.0 - 0.4 K/mm3 Normal No Aug 29 ls informati 2016 1:24 [#/volume on in PM ] in source Blood by data Automated count Eosinophi 0.1 - % Normal No Aug 29 ls/100 12.0 informati 2016 1:24 leukocyte on in PM s in source Blood by data Automated count Granulocy 1.8 - 7.8 K/mm3 Normal No Aug 29 ramesh inform2016 1:24 [#/volume on in PM ] in source Blood by data Automated count Granulocy 37.0 - % Normal No Aug 29 ramesh/100 80.0 informati 2016 1:24 leukocyte on in PM s in source Blood by data Automated count Hematocri 37.0 - % Low No Aug 29 t [Volume 47.0 informati 2016 1:24 on in PM Fraction] source of Blood data Hemoglobi 12.2 - g/dL Low No Oct 3 n 16.2 informati 2016 1:24 [Mass/vol on in PM ume] in source Blood data Lymphocyt 0.7 - 4.5 K/mm3 Normal No Oct 3 es informati 2016 1:24 [#/volume on in PM ] in source Unspecifi data ed specimen by Automated count Lymphocyt 10 - 50.0 % Normal No Oct 3 es informati 2016 1:24 [#/volume on in PM ] in source Unspecifi data ed specimen by Automated count Erythrocy 27 - 31.2 pg Normal No Oct 3 te mean informati 2016 1:24 corpuscul on in PM ar source hemoglobi data n [Entitic mass] Erythrocy 31.8 - g/dl Low No Oct 3 te mean 35.4 informati 2016 1:24 [...] M/mm3 Low No Oct 3 ramesh informati 2016 1:24 [...] mmoL/L Normal No Oct 3 [Moles/vo informati 2017 1:24 lume] in on in PM Serum or source Plasma data Carbon 21.0 - mmoL/L High No Oct 3 dioxide, 32.0 informati 2016 1:24 total on in PM [Moles/vo source lume] in data Serum or Plasma Creatinin 0.55 - mg/dL High No Oct 3 e 1.02 informati 2017 1:24 [Mass/vol on in PM ume] in [...] Interpr Notes Date ti ce etation Range Lactate 0.4 - 2.0 mmol/L Normal No Jun 18 [Moles/vo informati 2016 4:40 lume] in on in PM Blood source data Gas panel in Arterial blood Observa Value Referen Units Interpr Notes Date tion ce etation Range Base -2.4-+2.3 MMOL/L High No Jul 14 excess in informati 2017 3:27 Arterial on in PM blood source data Arteria ACCEPTA No No No No Jul 14 l BLE informa informa informa informa 2017 patency tion in tion in tion in tion in 3:27 PM Wrist source source source source artery data data data data --pre arteria l punctur e Bicarbona 22.0 - MMOL/L High No Jul 14 te 26.0 informati 2016 3:27 [Moles/vo on in PM lume] in source Arterial data blood Oxygen No No No No Jun 18 content informati informati informati informati 2017 3:27 [...] Normal No Jul 14 Arterial 7.45 informati 2016 3:27 blood on in PM source data [...] MMOL/L High No Jul 14 dioxide, informati 2016 3:27 total on in PM [Moles/vo source lume] in data Arterial blood CBC W Auto Differential panel in Blood Observa Value Referen Units Interpr Notes Date tion ce etation Range Basophils 0 - 0.2 K/MM3 Normal No Jun 18 informati 2016 3:00 [#/volume on in PM ] in source Blood by data Automated count Basophils 0.1 - 2.0 % Normal No Jun 18 /100 informati 2016 3:00 leukocyte on in PM s in source Blood by data Automated count Eosinophi 0.0 - 0.4 K/mm3 Normal No Jul 14 ls informati 2016 3:00 [#/volume on in PM ] [...] Granulocy 37.0 - % High No Jun 18 ramesh/100 80.0 informati 2016 3:00 leukocyte on in PM s in source Blood by data Automated count Hematocri 37.0 - % Low No Jul 14 t [Volume 47.0 ati 2016 3:00 on in PM Fraction] source of Blood data Hemoglobi 12.2 - g/dL Low No Jul 14 n 16.2 informati 2016 3:00 [Mass/vol on in PM ume] in source Blood data Lymphocyt 0.7 - 4.5 K/mm3 Normal No Jul 14 es inform2016 3:00 [#/volume on in PM ] in source Unspecifi data ed specimen by Automated count Lymphocyt 10 - 50.0 % Low No Jul 14 es inform2016 3:00 [#/volume on in PM ] in source Unspecifi data ed specimen by Automated count Erythrocy 27 - 31.2 pg Normal No Jun 18 te mean informati 2016 3:00 corpuscul on in PM ar source hemoglobi data n [Entitic mass] Erythrocy 31.8 - g/dl Normal No Jul 14 te mean 35.4 inform2016 3:00 corpuscul on in PM ar source hemoglobi data n concentra tion [Mass/vol ume] by Automated count Erythrocy 82.2 - fl Normal No Jul 14 te mean 97.8 informati 2016 3:00 corpuscul on in PM ar volume source [Entitic data volume] by Automated count Monocytes 0.1 - 1.0 K/mm3 Normal No Jun 18 informati 2016 3:00 [#/volume on in PM ] in source Blood by data Automated count Monocytes 1.7 - 9.3 % Normal No Jun 18 /100 informati 2016 3:00 leukocyte on in PM s in source Blood by data Automated count Platelet 7.4 - fl Low No Jun 18 mean 10.4 informati 2016 3:00 volume on in PM [Entitic source volume] data in Blood by Automated count Platelets 142 - 424 K/mm3 No No Jun 18 informati informati 2016 3:00 [#/volume on in on in PM ] in source source Blood data data Erythrocy 4.2 - 5.4 M/mm3 Low No Jun 18 ramesh informati 2016 3:00 [#/volume on in PM ] in source Amniotic data fluid Erythrocy 11.5 - % Normal No Jun 18 te 17.5 ati 2016 3:00 distribut on in PM ion width source [Entitic data volume] by Automated count Leukocyte 4.8 - K/MM3 High No Jun 18 s 10.8 informati 2016 3:00 [#/volume on in PM ] in source Blood data Differential panel, method unspecified - Observa Value Referen Units Interpr Notes Date ti ce etation Range LYMPH 11 10 - 50 % Normal No Jul 14 inform2016 tion in 3:00 PM source data Monocytes 2 - 9 % Normal No Jun 18 /100 informati 2016 3:00 leukocyte on in PM s in source Blood by data Automated count Platele NORMAL No No No No Jul 14 ts informa a informa inform2016 [Presen tion in tion in tion in tion in 3:00 PM ce] in source source source source Blood data data data data by Light microsc opy Neutrophi 42 - 76 % High No Jul 14 ls ati 2016 3:00 [#/volume on in PM ] in source Blood by data Automated count Cells No #CELLS No No Jul 14 Counted informati informati informati 2016 3:00 Total [#] on in on in on in PM in Blood source source source data data data Comprehensive metabolic 2000 panel in Serum or Plasma Observa Value Referen Units Interpr Notes Date ti ce etation Range Albumin/G 1.1 - 1.8 No Low No Jul 14 lobulin informati informati 2016 3:00 [Mass on in on in PM ratio] in source source Serum or data data Plasma Albumin 3.4 - 5.0 gm/dL Normal No Jul 14 [Mass/vol informati 2016 3:00 ume] in on in PM Serum or source Plasma data Alkaline 46 - 116 U/L Normal No Jul 14 phosphata ati 2016 3:00 se on in PM [Enzymati [...] Normal No Jun 03 e renal informati 2016 6:15 clearance on in AM source predicted data by Cockcroft -Gault formula Estimated 59- ML/MIN Low REFERENCE Jun 03 RANGE: 2017 6:15 glomerula >60 AM r ML/MIN/1. filtratio 73 SQUARE n rate METERSIf (GF this patient is -A merican, then multiply theresult by 1.210. Glucose 74 - 106 mg/dL High No Jun 03 [Mass/vol informati 2016 6:15 ume] in on in AM Serum or source Plasma data Potassium 3.5 - 5.1 mmoL/L Normal No Jun 03 informati 2016 6:15 [Moles/vo on in AM lume] in source Serum or data Plasma Sodium 136 - 145 mmoL/L Normal No Jun 03 [Moles/vo informati 2016 6:15 lume] in on in AM Serum or source Plasma data Streptococcus pyogenes Ag [Presence] in Unspecified specimen Observa Value Referen Units Interpr Notes Date tion ce etation Range Strepto NEGATIV No No No No Jun 02 coccus E informa informa informa informa 2016 pyogene tion in tion in tion in tion in 11:30 s Ag source source source source AM [Presen data data data data ce] in Unspeci fied specime n Gas panel in Arterial blood Observa Value Referen Units Interpr Notes Date ti ce etation Range Base -2.4-+2.3 MMOL/L High No Jun 02 excess in informati 2016 Arterial on in 10:57 AM blood source data Arteria ACCEPTA No No No No Jun 02 l BLE informa informa informa informa 2016 patency tion in tion in tion in tion in 10:57 Wrist source source source source AM artery data data data data --pre arteria l punctur e Bicarbona 22.0 - MMOL/L High No Jun 02 te 26.0 inform2016 [Moles/vo on in 10:57 AM lume] in [...] MMHG Low No Jun 02 [Partial informati 2017 pressure] on in 10:57 AM in source Arterial data blood Oxygen 90 - 100 % Low No Jun 02 saturatio ati 2017 n.calcula on in 10:57 AM sonia from source oxygen data partial pressure in Arterial blood SOURCE LEFT No No No No Jun 02 RADIAL informa informa informa informa 2016 tion in tion in tion in tion in 10:57 source source source source AM data data data data Carbon 23 - 27 MMOL/L High No Jun 02 dioxide, informati 2017 total on in 10:57 AM [Moles/vo source [...] Plasma Observa Value Referen Units Interpr Notes ti ce etation Range Natriutie 0 - 100 pg/mL Normal No Jun 02 tic informati 2016 peptide B on in 10:45 AM source [Mass/vol data ume] in Serum or Plasma Cardiac enzymes Observa Value Referen Units Interpr Notes etation Range Creatine 0 - 4.0 U/L Normal No Jun 02 kinase.MB informati 2016 /Creatine on in 10:45 AM source kinase.to data jermain [Ratio] in Serum or Plasma Creatine 0.0 - 3.6 ng/mL Normal No Jun 02 kinase.MB informati 2016 on in 10:45 AM [Mass/vol source ume] in data Serum or Plasma Creatine 26 - 192 U/L Normal No Jun 02 kinase informati 2017 [Enzymati on in 10:45 AM c source activity/ data volume] in Serum or Plasma Troponin 0.00 - ng/mL Normal No Jun 02 I.cardiac 0.06 informati 2016 on in 10:45 AM [Mass/vol source ume] in data Serum or Plasma Lactate [Moles/volume] in Blood Observa Value Referen Units Interpr Notes etation Range Lactate 0.4 - 2.0 mmol/L Normal No Jun 02 [Moles/vo informati 2017 lume] in on in 10:45 AM Blood source data Comprehensive metabolic 2000 panel in Serum or Plasma Observa Value Referen Units Interpr Notes Date etation Range Albumin/G 1.1 - 1.8 No [...] 116 U/L Normal No Jun 02 phosphata inform2016 se on in 10:45 AM [Enzymati source [...] ML/MIN Normal No Jun 02 e renal inform2016 clearance on in 10:45 AM source predicted [...] 3.5 - 5.1 mmoL/L Normal No Jun 02 informati 2017 [Moles/vo on in 10:45 AM lume] in source Serum or data Plasma Sodium 136 - 145 mmoL/L Normal No Jun 02 [Moles/vo 2016 lume] in on in 10:45 AM Serum or source Plasma data Aspartate 15 - 37 U/L Normal No Jun 022016 aminotran on in 10:45 AM [...] 0.1 - 2.0 % Normal No Jun 02 /2016 leukocyte on in 10:45 AM s in [...] Automated count Hematocri 37.0 - % Low Jun 02 t [Volume 47.0 2016 on [...] count Leukocyte 4.8 - K/MM3 Normal No Jun 02 s 10.8 2016 [#/volume on in 10:45 AM ] in source Blood data Comprehensive metabolic 2000 panel in Serum or Plasma Observa Value Referen Units Interpr Notes Date tion ce etation Range Albumin/G 1.1 - 1.8 No Low No May 12 lobulin informati inform2016 6:13 [Mass on in on in AM ratio] in source source Serum or data data Plasma Albumin 3.4 - 5.0 gm/dL Low No Eddie 16 [Mass/vol informati 2017 6:13 ume] in [...] Chloride 98 - 107 mmoL/L Normal No May 12 [Moles/vo informati 2017 6:13 lume] in on in AM Serum or source Plasma data Carbon 21.0 - mmoL/L Normal No May 12 dioxide, 32.0 informati 2017 6:13 total on [...] mg/dL High No Apr 16 [Mass/vol informati 2017 6:13 ume] in on in AM Serum or source Plasma data Potassium 3.5 - 5.1 mmoL/L Normal No Apr 16 informati 2017 6:13 [Moles/vo on in AM lume] in source Serum or data Plasma Sodium 136 - 145 mmoL/L Normal No Apr 16 [Moles/vo informati 2017 6:13 lume] in on in AM Serum or source Plasma data Aspartate 15 - 37 U/L Normal No May 12 informati 2017 6:13 aminotran on in AM sferase source [Enzymati data c activity/ volume] in Serum or Plasma Alanine 12 - 78 U/L Normal No May 12 aminotran informati 2016 6:13 sferase on in AM [Enzymati source c data activity/ volume] in Serum or Plasma Protein 6.4 - 8.2 gm/dL Normal No Apr 16 [Mass/vol informati 2016 6:13 [...] - 2.0 % Normal No Apr 16 /100 informati 2017 6:13 leukocyte on in AM s in source Blood by data Automated count Eosinophi 0.0 - 0.4 K/mm3 Normal No May 12 ls informati 2016 6:13 [#/volume on in AM ] in source Blood by data Automated count Eosinophi 0.1 - % Normal No May 12 ls/100 12.0 informati 2017 6:13 leukocyte on in AM s in source Blood by data Automated count Granulocy 1.8 - 7.8 K/mm3 Normal No May 12 ramesh informati 2016 6:13 [#/volume on in AM ] in source Blood by data Automated count Granulocy 37.0 - % High No May 12 ramesh/100 80.0 informati 2016 6:13 leukocyte on in AM s in source Blood by data Automated count Hematocri 37.0 - % Low No May 12 t [Volume 47.0 informati 2017 6:13 on in AM Fraction] source of Blood data Hemoglobi 12.2 - g/dL Low No May 12 n 16.2 informati 2016 6:13 [Mass/vol on in AM ume] in source Blood data Lymphocyt 0.7 - 4.5 K/mm3 Normal No May 12 es informati 2016 6:13 [#/volume on in AM ] in source Unspecifi data ed specimen by Automated count Lymphocyt 10 - 50.0 % Normal No Eddie 16 es informati 2017 6:13 [#/volume on [...] 1.7 - 9.3 % Normal No Apr 16 /100 informati 2017 6:13 leukocyte on in AM s in source Blood by data Automated count Platelet 7.4 - fl Low No May 12 mean 10.4 informati 2017 6:13 volume on [...] fluid Erythrocy 11.5 - % Normal No May 12 te 17.5 informati 2017 6:13 distribut on in AM ion width source [Entitic data volume] by Automated count Leukocyte 4.8 - K/MM3 Normal No Apr 16 s 10.8 informati 2016 6:13 [#/volume on in AM ] in source Blood data Lactate [Moles/volume] in Blood Observa Value Referen Units Interpr Notes Date tion ce etation Range Lactate 0.4 - 2.0 mmol/L Normal No Apr 14 [Moles/vo informati 2017 9:55 lume] in on in PM Blood source data CBC W Auto Differential panel in Blood Observa Value Referen Units Interpr Notes Date tion ce etation Range Basophils 0 - 0.2 K/MM3 Normal No Apr 14 informati 2017 9:55 [#/volume on in PM ] in source Blood by data Automated count Basophils 0.1 - 2.0 % Normal No Apr 14 /100 informati 2017 9:55 leukocyte on in PM s in source Blood by data Automated count Eosinophi 0.0 - 0.4 K/mm3 Normal No Apr 14 ls informati 2016 9:55 [#/volume on in PM ] in source Blood by data Automated count Eosinophi 0.1 - % Normal No Apr 14 ls/100 12.0 informati 2016 9:55 leukocyte on in PM s in source Blood by data Automated count Granulocy 1.8 - 7.8 K/mm3 Normal No Apr 14 ramesh informati 2017 9:55 [#/volume on in PM ] in source Blood by data Automated count Granulocy 37.0 - % Normal No Apr 14 ramesh/100 80.0 informati 2017 9:55 leukocyte on in PM s in source Blood by data Automated count Hematocri 37.0 - % Low No May 10 t [Volume 47.0 informati 2016 9:55 on in PM Fraction] source of Blood data Hemoglobi 12.2 - g/dL Low No May 10 n 16.2 informati 2017 9:55 [Mass/vol on in PM ume] in source Blood data Lymphocyt 0.7 - 4.5 K/mm3 Normal No May 10 es informati 2016 9:55 [#/volume on in PM ] in source Unspecifi data ed specimen by Automated count Lymphocyt 10 - 50.0 % Normal No May 10 es informati 2016 9:55 [#/volume on in PM ] in source Unspecifi data ed specimen by Automated count Erythrocy 27 - 31.2 pg Normal No May 10 te mean informati 2016 9:55 corpuscul on in PM ar source hemoglobi data n [Entitic mass] Erythrocy 31.8 - g/dl Normal No May 10 te mean 35.4 informati 2017 9:55 corpuscul on in PM ar source hemoglobi data n concentra tion [Mass/vol ume] by Automated count Erythrocy 82.2 - fl Normal No May 10 te mean 97.8 informati 2016 9:55 corpuscul on in PM ar volume source [Entitic data volume] by Automated count Monocytes 0.1 - 1.0 K/mm3 Normal No Apr 14 informati 2016 9:55 [#/volume on in PM ] in source Blood by data Automated count Monocytes 1.7 - 9.3 % Normal No Apr 14 /100 informati 2017 9:55 leukocyte on in PM s in source Blood by data Automated count Platelet 7.4 - fl Low No Apr 14 mean 10.4 informati 2017 9:55 volume on [...] Normal No Apr 14 te 17.5 informati 2016 9:55 distribut on in PM ion width source [Entitic data volume] by Automated count Leukocyte 4.8 - K/MM3 Normal No Apr 14 s 10.8 informati 2016 9:55 [#/volume on in PM ] in source Blood data
--- OUTSIDE RECORDS SUMMARY | 2017-09-26 02:34 | External Medical Summary Rpt ---
[...] med at: [facility] - [facility] [place] [address] [id number] 61Lab Directo r: Jean Marie Nino MD, Phone: [phone] Mycoplasma pneumoniae IgM Ab [Presence] in Serum [...]
--- NOTE | 2017-09-26 02:40 | Emergency Room Report ---
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 CALLED EMS REPORTING SHORTNESS OF BREATH AND VOMITING. 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 N Clinical Suspician of Infection? N Mental Status: 3 - Acutely Altered Sepsis Risk:Severe Sepsis Risk Have you (or family members/close friends) recently traveled outside the [place]? N If Yes, where/when: Have you had exposure to infectious disease within the past month? N TB? Other? Specify: Source patient, RN notes reviewed, family, EMS, old records Exam Limitations clinical condition Comment pt with hx of o2 dep copd with acute excerbation of sob w/o chest pain and no prod cough or hemoptysis- pt with recent admit and record reviewed Cardiac Chest Pain Chest pain indicative of cardiac No Timing/Duration this evening Severity moderate ALLERGIES Coded Allergies: Sulfa (Sulfonamide Antibiotics) (08/25/17) codeine (08/25/17) hydrocodone (08/25/17) metoclopramide (From REGLAN) (08/25/17) Home Medications Active Scripts Device (Bipap Machine) 1 UNIT XX UD #1 DEV Prov: 07/18/17 Acetylcysteine (Acetylcysteine 20% 4ML) 4 ML IN TID #120 ML Ref 1 Prov: 09/03/17 Reported Medications POTASSIUM CHL (Potassium Chloride) 20 MEQ PO DAILY Guaifenesin 400 MG PO QHS BUDESONIDE/FORMOTEROL FUMARATE (Symbicort 160-4.5 Mcg Inhaler) 2 PUFF IH BID Tiotropium [place] (Spiriva) 1 PUFF IH DAILY Bumetanide 2 MG PO DAILYP PRN DIURETIC Aspirin (Adult Low Dose Aspirin EC) 81 MG PO DAILY PILOCARPINE HCL (Salagen) 7.5 MG PO TID Pantoprazole Sodium (Protonix 40MG TAB) 40 MG PO DAILY ALBUTEROL (Albuterol 0.083% Neb) 3 ML INH Q6H SERTRALINE HCL (Zoloft) 100 MG PO DAILY Ferrous Sulfate (Iron Tablet) 325 MG PO DAILY Pregabalin (Lyrica 25MG) 25 MG PO BID Mirabegron (Myrbetriq) 50 MG PO DAILY Trazodone Hcl (Trazodone HCl) 100 MG PO QHS Cholecalciferol (Vitamin D3) (Vitamin D) 400 UNIT PO DAILY Buspirone Hcl (Buspirone 10MG) 10 MG PO BID Albuterol Sulfate (Proair Hfa) 2 PUFF IH Q4HP PRN BREATHING Montelukast Sodium (Singulair 10MG) 10 MG PO DAILY Ipratropium [place] (Ipratropium 0.5MG Neb Soln) 3 ML INH BID AZELASTINE/FLUTICASONE (Dymista Nasal Ira) 1 SPR NS BID ONDANSETRON HCL (Ondansetron Hydrochloride) 8 MG PO DAILY #90 Device (Oxygen (Concentrator)) 1 UNIT XX UD Ranitidine Hcl (Ranitidine 150MG) 75 MG PO QHS Multivitamin (One Daily Essential) 1 TAB PO DAILY Loratadine (Claritin 10MG) 10 MG PO DAILY POLYETHYLENE GLYCOL (Miralax) 17 GM PO DAILY Acetaminophen 325 MG PO Q4HP PRN PAIN Bacillus Coagulans (Probiotic) 1 EACH PO DAILY Hydrocortisone 5 MG PO QAM Hydrocortisone 2.5 MG PO QHS History Medical History General CAD? No Angina: No NM: No Hypertension? Yes Hyperlipidemia? No CHF? Yes DVT? No PE? No COPD? Yes Asthma? Yes Anemia? No GERD? Yes Gastric ulcers? Yes GI Bleed? No Hernia? No Thyroid Problems? No Hypothyroidism? No CVA? No Seizures? No Diabetes? No Renal Insuffiency? No End Stage Renal Disease? No UTI? No Stones? No BPH? No GB Disease: Yes Nephritic Syndrome? No Asplenia? No Hepatitis? No Sickle Cell Disease? No Arthritis? Yes Migraines? No Cataracts? Yes Glaucoma? No MRSA? Yes HIV? No TB? No Anxiety? Yes Depression? Yes Cancer? No More? Yes Additional hx: ADRENAL INSUFFIENCY, IGG SUBCLASS Immunization Hx DT/Tetanus Unknown Flu [id number] Pneumonia Received In Past Surgical Hx Previous Surgery?Y [place] Hysterect BACK X 2 PAIN PUMP ABD LEFT [facility] HEART CATH PORT A CATH LEFT HIP Family History Family Hx Diabetes No CAD No Hypertension No Hyperlipidemia No Cancer No TB Yes Social History Smoking Hx Smoker: Former Smoker Tobacco: No Packs/day N/A Are you/the child exposed to second-hand smoke: No Alcohol Alcohol: No Drugs none Review of Systems All Other Systems Reviewed and Negative Constitutional see HPI, fever, weakness Eyes denies drainage ENT denies: ear discharge, epistaxis, throat pain. Respiratory see HPI, cough, shortness of breath, wheezing Cardiovascular denies chest pain, denies syncope Gastrointestinal denies abdominal pain, denies diarrhea, denies vomiting Genitourinary denies: dysuria, frequency, hesitancy, hematuria. Musculoskeletal denies back pain, denies joint pain, denies joint swelling, denies neck pain Skin denies rash Psychiatric/Neurological denies headache, denies seizure Physical Exam Vital Signs Vital Signs Date Time Temp Pulse Resp B/P Pulse O2 O2 Flow FiO2 Ox Delivery Rate 09/26 304 112 24 135/100 94 5 09/26 030 70 09/26 0224 129 26 98 09/26 0219 26 86 5 09/26 0157 101.0 82 26 105/62 86 5 - WBC >12,000 or <4,000 or 10% bands? 2 or more SIRS Criteria Met? B/P:99/44 MAP:76 Creatinine >2.0? UA output<0.5ml/kg/hr for 2 hrs? Platelet count >100,000? Lactate >2.0mmol/1? INR >1.2 or PTT > than 60 sec? Evidence of Organ Dysfunction? Provider documented clinical suspician of infection? N Sepsis Criteria Count: 1 Sepsis Risk: Severe Sepsis Risk General Appearance no apparent distress Eye Exam - bilateral eye PERRL, bilateral eye EOMI Ear, Nose, Throat dry mm Neck non-tender Respiratory Status No: respiratory distress. Lung Sounds bilateral: decreased breath sounds. Cardiovascular no JVD, tachycardia, systolic murmur, gallop/S4 Peripheral Pulses Pulses normal No Gastrointestinal soft Extremities no calf tenderness, pedal edema Strength 3 Lower Ext (L), 3 Lower Ext (R), 4 Upper Ext (L), 4 Upper Ext (R) Neurologic customer response representative II-XII nml as tested, somulent but responds to voice- - no focal changes - no posturing Glascow Coma Scale Glascow Coma Scale Response Value EYE response: 4 Spontaneously 4 MOTOR response: 5 LOCALIZES PAIN 5 VERBAL response: 4 Disoriented & Converses 4 Total 13 Reflexes Reflexes normal No Mental status altered mental status Skin intact Medical Decision Making LABS/Meds/Orders Pt receiving controlled substance in ED? No Results/Orders Laboratory Tests 09/26/17 0245: Urine Color YELLOW, Urine Appearance CLEAR, Urine pH 5.5, Ur Specific [place] 1.025, Urine Protein NEGATIVE, Urine Ketones NEGATIVE, Urine Blood NEGATIVE, Urine Nitrate NEGATIVE, Urine Bilirubin NEGATIVE, Urine Urobilinogen 0.2, Ur Leukocyte Esterase NEGATIVE, Urine RBC OCC, Urine WBC OCC, Ur Squamous Epith Cells NONE, Urine Bacteria NONE, Urine Glucose NEGATIVE 09/26/17229: Lactic Acid 1.1 09/26/17229: Sodium 141, Potassium 4.3, Chloride 102, Carbon Dioxide 35 H, BUN 23 H, Creatinine 1.2 H, Estimated Creat Clear 63, Estimated GFR (MDRD) 45 L, Glucose 125 H, Calcium 8.5, Total Bilirubin 0.2, AST 21, ALT 26, Alkaline Phosphatase 88, Creatine Kinase 101, CK-MB (CK-2) Rel Index 1.0, CK and CKMB Interp 1.0, Troponin I < 0.02, B-Natriuretic Peptide 17, Total Protein 7.4, Albumin 3.2 L, Globulin 4.2 H, Albumin/Globulin Ratio 0.8 L, WBC 9.8, RBC 3.71 L, Hgb 10.7 L, Hct 33.7 L, MCV 90.9, RDW 14.8, Plt Count 163, MPV 6.6 L, Gran % 86.4 H, Gran # 8.5 H, Total Counted Pending, Lymphocytes % 8.6 L, Monocytes % 3.9, Eosinophils % 0.8, Basophils % 0.2, Neutrophils Pending, Lymphocytes (Manual) Pending, Lymphocytes # 0.9, Monocytes # 0.4, Eosinophils # 0.1, Basophils # 0.0, Platelet Estimate Pending, PUBS MCHC 31.7 L, MCH 28.9 09/26/17 0202: ABG pH 7.33 L, ABG pCO2 (Temp Corrct 63.5 H, ABG pO2 (Temp Correct 57.2 L, ABG HCO3 32.9 H, ABG Total CO2 34.8 H, ABG O2 Sat (Calculated) 88.5 L, ABG Base Excess 7.0 H, [place] Test PATIENT UNABLE Current Medication Orders Sig/[place] Start time Last Medication Dose Route Stop Time Status Admin Vancomycin HCl 0 .STK-MED ONE 09/26 306 DC .ROUTE Methylprednisolone 0 .STK-MED ONE 09/26 305 DC Sodium Succinate .ROUTE Vancomycin HCl 0 .STK-MED ONE 09/26 305 DC .ROUTE Sodium Chloride 250 ML .STK-MED ONE 09/26 304 DC IV Acetaminophen 650 MG ONCE ONE 09/26 300 DC 09/26 [place] 09/26 301 0253 Methylprednisolone 125 MG ONCE ONE 09/26 300 DC 09/26 Sodium Succinate IV 09/26 301 0312 Miscellaneous 1 EACH CONSULT PHARMACY 09/26 300 AC Information * 09/26 1500 Vancomycin HCl 1,750 MG ONCE ONE 09/26 300 CKDr 09/26 Sodium Chloride 250 ML IV 09/26 459 0313 Acetaminophen 0 .STK-MED ONE 09/26 252 DC [place] Heparin Sodium 0 .STK-MED ONE 09/26 215 DC (Porcine) IV Heparin Sodium 0 .STK-MED ONE 09/26 213 DC (Porcine) IV Orders Procedure Date/time Status Decision to admit 09/26 032 Active DIFFERENTIAL-WBC 09/26 230 Active 12 LEAD EKG-SUE (INITIAL) 09/26 202 Active ELECTROCARDIOGRAM REQUEST 09/26 201 Active ARTERIAL BLOOD GAS REQUEST 09/26 201 Active CHEST-PORTABLE 09/26 201 Active URINARY CATHETER INSERT 09/26 201 Active CULTURE, BLOOD 09/26 201 Active URINALYSIS/COMPLETE 09/26 201 Complete LACTIC ACID 09/26 201 Complete COMPLETE METABOLIC PANEL 09/26 201 Complete CBC WITH AUTO DIFF 09/26 201 Active CARDIAC ENZYMES 09/26 201 Complete BRAIN NATRIURETIC PEPTIDE 09/26 201 Complete CM/EKG 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 ST/Twave chgs, RBBB XRAY/CT/US XRAY/CT/US XRAY chest XR interpretation by reviewed by me Xray Results abnormal (lt sided changes ) Departure Departure Time of Disposition 0244 Disposition Still a Patient Clinical Impression Primary Impression: COPD (chronic obstructive pulmonary disease) with acute bronchitis Secondary Impressions: Febrile illness, acute, Renal insufficiency Condition STABLE Referrals Curtis Jain MD (Family) discussed with dr jain ED Critical Care Critical Care No at 0404
[2017-09-26 02:51] LABS: URINE BILIRUBIN - DIPSTICK NEGATIVE (NEG); URINE BLOOD NEGATIVE (NEG)
[2017-09-26 02:55] LABS: HEMOGLOBIN 10.7 g/dL (12.2-16.2); LYMPH # 0.9 K/mm3 (0.7-4.5); LYMPH % 8.6 % (10-50.0)
[2017-09-26 03:04] LABS: BUN 23 mg/dL (7-18)
[2017-09-26 03:05] LABS: GFR (ESTIMATED) 45 ML/MIN (59-)
--- OUTSIDE RECORDS SUMMARY | 2017-09-26 03:35 | External Medical Summary Rpt | CCD ---
Author Author , MANUEL Organization MANUEL Address Unknown Phone [email or web address] Immunization Name Date Rout CVX Reac Dose [...]
--- OUTSIDE RECORDS SUMMARY | 2017-09-26 03:35 | External Medical Summary Rpt | CCD ---
Author Author MANUEL Address Unknown Phone [email or web address] Purpose Continuity of Care Document - through 2016
--- OUTSIDE RECORDS SUMMARY | 2017-09-26 03:35 | External Medical Summary Rpt | CCD ---
Author Author , MANUEL Organization MANUEL Address Unknown Phone [email or web address] Immunization Name Date Rout CVX Reac Dose [...]
--- OUTSIDE RECORDS SUMMARY | 2017-09-26 03:35 | External Medical Summary Rpt | CCD ---
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 482.9 Bacterial [place] pneumonia [facility] 496 Chronic [place] obstructive [facility] disease D64.9 ANEMIA, UNSPECIFIED J18.9 PNEUMONIA, UNSPECIFIED [...] ti 4 ve MG /2 ML AL NM 00 03 3 No OM 64 -2 [...] 51 03 3 No TO 07 -2 NM 90 3- Lo OL 25 20 ng [...] Ac MG ti ve Ta bl et NM 00 03 3 No OT 00 -2 [...] Order Detail nces retati t Range on Urinalysis with microscopy (09-26-2017 02:45) Urine NEGATIV NEG complet blood 017 E ed detecti 02:45 NEGATIV on E L Urine CLEAR CLEAR complet appeara 017 CLEAR L ed nce 02:45 determi nation Bacteri NONE O complet a 017 NONE L ed detecti 02:45 on in urine sedimen t by Urine NEGATIV NEG complet total 017 E ed bilirub 02:45 NEGATIV in E L detecti on by test Urine YELLOW YELLOW complet color 017 YELLOW ed 02:45 L Glucose = NEG complet ur 017 NEGATIV ed test 02:45 E strip Urine NEGATIV NEG complet ketones 017 E ed 02:45 NEGATIV detecti E L on by mg/dL automat ed ramesh Mucus NEGATIV NEG complet detecti 017 E ed on in 02:45 NEGATIV urine E L sedimen t by lig Urine NEGATIV NEG complet nitrite 017 E ed 02:45 NEGATIV detecti E L on by test strip Urine = 5.5 5.0-8.5 complet pH 017 ed 02:45 Urine = NEG complet protein 017 NEGATIV ed 02:45 E mg/dL measure ment by automat ed t Erythro OCC OCC 0 complet cytes 017 L ed detecti 02:45 rbc/hpf on in urine sedimen t Urine = 1.025 1.005-1 complet specifi 017 .030 ed c 02:45 gravity measure ment [place] NONE 0-5 complet s 017 NONE L ed epithel 02:45 #/hpf ial cells detecti on in u Urine 0.2 0.2 NEG complet urobili 017 L ed nogen 02:45 E.U./dL detecti on by test str Urine = OCC O complet leukocy 017 wbc/hpf ed ramesh 02:45 count (number /volume ) Urinalysis dipstick W Reflex Microscopic panel in Urine (09-26-2017 02:45) Bacteri NONE O complet a 017 ed [Presen 02:45 ce] in Urine sedimen t by Light microsc opy Erythro OCC 0 complet cytes 017 ed [Presen 02:45 ce] in Urine sedimen t by Light microsc opy Epithel NONE 0#/hp complet ial 017 f - ed cells.s 02:45 5#/hp quamous f [Presen ce] in Urine sedimen t by Microsc opy high power field Urinalysis dipstick W Reflex Microscopic panel in Urine (09-26-2017 02:45) Appeara CLEAR CLEAR complet nce of 017 ed Urine 02:45 Bilirub NEGATIV NEG complet in 017 E ed [Presen 02:45 ce] in Urine by Test strip Erythro NEGATIV NEG complet cytes 017 E ed [Presen 02:45 ce] in Urine Color 10-31-2 YELLOW YELLOW complet of 017 ed Urine 02:45 Ketones NEGATIV NEG complet 017 E ed [Presen 02:45 ce] in Urine by Automat ed test strip Mucus NEGATIV NEG complet [Presen 017 E ed ce] in 02:45 Urine sedimen t by Light microsc opy Nitrite NEGATIV NEG complet 017 E ed [Presen 02:45 ce] in Urine by Test strip Urobili 0.2 NEG complet nogen 017 ed [Presen 02:45 ce] in Urine by Test strip Blood lactic acid measurement (moles/vol (09-26-2017 02:30) Blood = 1.1 0.4-2.0 complet lactic 017 mmol/L ed acid 02:30 measure ment (moles/ vol Brain natriuretic peptide (09-26-2017 02:30) Brain = 17 0-100 complet natriur 017 pg/mL ed etic 02:30 peptide Cardiac enzymes (09-26-2017 02:30) Serum = 1.0 0-4.0 complet or 017 U/L ed plasma 02:30 creatin e kinase MB (CK-M Serum = 1.0 0.0-3.6 complet or 017 ng/mL ed plasma 02:30 creatin e kinase MB measu Serum = 101 26-192 complet or 017 U/L ed plasma 02:30 creatin e kinase measure m Serum < 0.02 0.00-0. complet or 017 ng/mL 06 ed plasma 02:30 troponi n i.cardi ac measu Comprehensive metabolic panel (09-26-2017 02:30) Serum = 0.8 1.1-1.8 complet or 017 ed plasma 02:30 albumin /globul in mass ra Serum = 3.2 3.4-5.0 complet or 017 gm/dL ed plasma 02:30 albumin measure ment (mas Serum = 88 46-116 complet or 017 U/L ed plasma 02:30 alkalin e phospha tase norma Serum = 0.2 0.2-1.0 complet or 017 mg/dL ed plasma 02:30 total bilirub in measure m Serum = 23 7-18 complet or 017 mg/dL ed plasma 02:30 urea nitroge n measure men Serum = 8.5 8.5-10. complet or 017 mg/dL 1 ed plasma 02:30 calcium measure ment (mas Serum = 102 98-107 complet or 017 mmoL/L ed plasma 02:30 chlorid e measure ment (mo Carbon = 35 21.0-32 complet dioxide 017 mmoL/L .0 ed 02:30 measure ment Serum = 1.2 0.55-1. complet or 017 mg/dL 02 ed plasma 02:30 creatin ine measure ment ( Estimat = 63 50-200 complet ion of 017 ML/MIN ed creatin 02:30 ine renal clearan ce Estimat = 45 59- complet ed 017 ML/MIN ed glomeru 02:30 lar filtrat ion rate (GF Comment: REFERENCE RANGE: >60 ML/MIN/1.73 SQUARE METERS Comment: If this patient is -[place]ol[place], then multiply the Comment: result by 1.210. Serum = 4.2 1.3-3.2 complet globuli 017 gm/dL ed n 02:30 measure ment (mass/v olume) Serum = 125 74-106 complet or 017 mg/dL ed plasma 02:30 glucose measure ment (mas Serum = 4.3 3.5-5.1 complet potassi 017 mmoL/L ed um 02:30 measure ment Serum = 141 136-145 complet sodium 017 mmoL/L ed measure 02:30 ment Serum = 21 15-37 complet or 017 U/L ed plasma 02:30 asparta te aminotr ansfera ALT = 26 12-78 complet (SGPT) 017 U/L ed ser/chet 02:30 s Protein = 7.4 6.4-8.2 complet total 017 gm/dL ed ser/chet 02:30 s Arterial blood gas (09-26-2017 02:02) [place]'s PATIENT complet test 017 UNABLE ed before 02:02 arteria PATIENT l blood UNABLE gas L Arteria 10-31-2 = 34.8 23-27 complet l blood 017 MMOL/L ed carbon 02:02 dioxide , total norma Arteria = 88.5 90-100 complet l blood 017 % ed oxygen 02:02 saturat ion calcula Arteria = 57.2 80-100 complet l whole 017 MMHG ed blood 02:02 PO2 at POC Arteria = 7.33 7.35-7. complet l blood 017 MMOL/L 45 ed pH 02:02 measure ment Arteria = 63.5 35.0-45 complet l blood 017 MMHG .0 ed 02:02 partial pressur e of carbo Comment: CRITICAL RESULTS Comment: RESULTS CALLED TO: RESULTS TAKEN STAT TO DR CALDWELL Comment: 09/26/17 0206 Carlitos,Monet Arteria = 44%, complet l blood 017 6 LPM ed total 02:02 NC oxygen content carmelita Arteria = 32.9 22.0-26 complet l blood 017 MMOL/L .0 ed 02:02 bicarbo nakia measure ment ( Arteria = 7.0 -2.4-+2 complet l blood 017 MMOL/L .3 ed base 02:02 excess determi nation Gas panel in Arterial blood (09-26-2017 02:02) [...] may also cause disease. Comment: Performed at: [facility] Comment: [id number] [place], [place] [id number] Comment: Loft Patternmaker: Jean Marie Nino MD, Phone: [phone] Legionella pneumophila 1 Ag [Presence] in Urine [...] with AUTO DIFF (02-19-2013 06:30) WBC # 02-19- 7.3 4.8-10. complet Bld 013 K/MM3 8 ed Auto 06:30 RBC # 02-19- 3.92 4.2-5.4 complet Bld 013 M/mm3 ed Auto 06:30 Hgb 10.5 12.2-16 complet Bld-mCn 013 g/dL .2 ed c 06:30 Hct Fr 33.4 % 37.0-47 complet Bld 013 .0 ed 06:30 MCV RBC 03-26-2 85.2 fl 82.2-97 complet 013 .8 ed 06:30 MCH RBC 02-19-2 26.9 pg 27-31.2 complet Qn 013 ed Auto 06:30 MEAN 02-19-2 31.6 31.8-35 complet CORPUSC 013 g/dl .4 ed ULAR 06:30 HGB CONC RDW RBC 02-19-2 17.1 % 11.5-17 complet Auto 013 .5 ed 06:30 Platele 02-19-2 285 142-424 complet t Bld 013 K/mm3 ed Ql 06:30 Manual MEAN 6.7 fl 7.4-10. complet PLATELE 013 4 ed T 06:30 VOLUME Granulo 02-19-2 68.2 % 37.0-80 complet cytes 013 .0 ed Fr Bld 06:30 Auto LYMPH % 02-19-2 20.8 % 10-50.0 complet 013 ed 06:30 Monocyt --2 5.4 % 1.7-9.3 complet es Fr 013 ed Bld 06:30 Auto Eosinop -26-2 5.5 % 0.1-12. complet hil Fr 013 0 ed Bld 06:30 Auto Basophi 03-26-2 0.2 % 0.1-2.0 complet ls Fr 013 ed Bld 06:30 Auto Granulo -26-2 5.0 1.8-7.8 complet cytes # 013 K/mm3 [...] 12:35 Vancomycin Trough SerPl-mCnc (02-18-2013 06:30) Vancomy 03-25-2 16.8 10.0-20 complet selena 013 mcg/mL .0 [...] with AUTO DIFF (02-18-2013 06:28) WBC # 7.6 4.8-10. complet Bld 013 K/MM3 8 [...] complet Qn 013 ed Auto 06:28 MEAN 03-25-2 31.8 31.8-35 complet CORPUSC 013 g/dl .4 ed ULAR 06:28 HGB CONC RDW RBC 02-18-2 17.2 % 11.5-17 complet Auto 013 .5 ed 06:28 Platele 25-2 307 142-424 complet t Bld 013 K/mm3 ed Ql 06:28 Manual MEAN 02-18-2 6.7 fl 7.4-10. complet PLATELE 013 4 ed T 06:28 VOLUME Granulo 25-2 70.6 % 37.0-80 complet cytes 013 .0 ed Fr Bld 06:28 Auto LYMPH % 25-2 19.9 % 10-50.0 complet 013 ed 06:28 Monocyt 25-2 4.1 % 1.7-9.3 complet es Fr 013 ed Bld 06:28 Auto Eosinop 25-2 5.3 % 0.1-12. complet hil Fr 013 0 ed Bld 06:28 Auto Basophi 25-2 0.1 % 0.1-2.0 complet ls Fr 013 ed Bld 06:28 Auto Granulo -25-2 5.3 1.8-7.8 complet cytes # 013 K/mm3 ed Bld 06:28 Auto Lymphoc 25-2 1.5 0.7-4.5 complet ytes Fr 013 K/mm3 ed Bld 06:28 Auto Monocyt -25-2 0.3 0.1-1.0 complet es # 013 K/mm3 ed Bld 06:28 Auto Eosinop 25-2 0.4 0.0-0.4 complet hil # 013 K/mm3 ed Bld 06:28 Auto Basophi -25-2 0.0 0-0.2 complet ls # 013 K/MM3 ed Bld 06:28 Auto BASIC METABOLIC PANEL (02-17-2013 02:20) Glucose 24-2 101 74-106 complet 013 mg/dL ed Bld-mCn 02:20 c BUN 02-17-2 9 mg/dL 7-18 complet Bld-mCn 013 ed c 02:20 Creat 24-2 1.1 0.6-1.0 complet SerPl-m 013 mg/dL ed Cnc 02:20 ESTIMAT 03-24-2 76 50-200 complet ED 013 ML/MIN ed [...] Bld 013 M/mm3 ed Auto 02:20 Hgb 02-17-2 10.5 12.2-16 complet Bld-mCn 013 g/dL .2 ed c 02:20 Hct Fr 31.7 % 37.0-47 complet Bld 013 .0 ed 02:20 MCV RBC 02-17- 82.0 fl 82.2-97 complet 013 .8 ed 02:20 MCH RBC 02-17- 27.2 pg 27-31.2 complet Qn 013 ed Auto 02:20 MEAN 33.1 31.8-35 complet CORPUSC 013 g/dl .4 ed ULAR 02:20 HGB CONC RDW RBC 17.3 % 11.5-17 complet Auto 013 .5 ed 02:20 Platele 02-17- 263 142-424 complet t Bld 013 K/mm3 ed Ql 02:20 Manual MEAN 7.6 fl 7.4-10. complet PLATELE 013 4 ed T 02:20 VOLUME Granulo 75.2 % 37.0-80 complet cytes 013 .0 ed Fr Bld 02:20 Auto LYMPH % 03-24-2 16.5 % 10-50.0 complet 013 ed 02:20 Monocyt 03-24-2 4.4 % 1.7-9.3 complet es Fr 013 ed Bld 02:20 Auto Eosinop 03-24-2 3.8 % 0.1-12. complet hil Fr 013 0 ed Bld 02:20 Auto Basophi 03-24-2 0.2 % 0.1-2.0 complet ls Fr 013 ed Bld 02:20 Auto Granulo 03-24-2 6.3 1.8-7.8 complet cytes # 013 K/mm3 ed Bld 02:20 Auto Lymphoc 03-24-2 1.4 0.7-4.5 complet ytes Fr 013 K/mm3 [...] K/MM3 8 ed Auto 06:10 RBC # -23-2 3.14 4.2-5.4 complet Bld 013 M/mm3 ed Auto 06:10 Hgb 03-23-2 8.3 12.2-16 complet Bld-mCn 013 g/dL .2 ed c 06:10 Hct Fr -23-2 25.9 % 37.0-47 complet Bld 013 .0 [...] 013 K/mm3 ed Ql 06:10 Manual MEAN 23-2 6.6 fl 7.4-10. complet PLATELE 013 4 [...] Bld 06:10 Auto URINALYSIS/COMPLETE (02-16-2013 01:00) URINE 02-16-2 YELLOW YELLOW complet COLOR 013 ed 01:00 URINE 02-16-2 CLEAR CLEAR complet APPEARA 013 ed NCE 01:00 URINE 02-16-2 NEGATIV NEG complet GLUCOSE 013 E ed - 01:00 DIPSTIC K URINE 02-16-2 NEGATIV NEG complet BILIRUB 013 E ed IN - 01:00 DIPSTIC K URINE 02-16-2 NEGATIV NEG complet KETONE 013 E mg/dL ed 01:00 URINE 02-16-2 1.025 1.005-1 complet SPECIFI 013 UNK .030 ed C 01:00 GRAVITY URINE 02-16-2 NEGATIV NEG complet BLOOD 013 E ed 01:00 URINE 02-16-2 6.0 UNK 5.0-8.5 complet PH 013 ed 01:00 URINE 02-16-2 NEGATIV NEG complet PROTEIN 013 E mg/dL ed - 01:00 DIPSTIC K URINE 02-16-2 0.2 NEG complet UROBILI 013 E.U./dL ed NOGEN - 01:00 DIPSTIC K URINE 02-16-2 NEGATIV NEG complet NITRATE 013 E ed - 01:00 DIPSTIC K URINE 02-16-2 NEGATIV NEG complet LEUK 013 E ed ESTERAS 01:00 E URINE 02-16-2 3-5 O complet WBC 013 wbc/hpf ed 01:00 URINE 02-16-2 3-5 0-5 complet SQUAMOU 013 #/hpf ed S CELLS 01:00 URINE 02-16-2 3-5 NONE complet RENAL 013 #/HPF ed CELLS 01:00 COMPREHENSIVE METABOLIC PANEL (02-15-2013 16:25) Glucose 02-15-2 132 74-106 complet 013 mg/dL ed Bld-mCn 16:25 c BUN 02-15- 15 7-18 complet Bld-mCn 013 mg/dL ed c 16:25 Creat 02-15- 1.3 0.6-1.0 complet SerPl-m 013 mg/dL ed Cnc 16:25 ESTIMAT 02-15-2 64 50-200 complet ED 013 ML/MIN ed CREATIN 16:25 INE CLEARAN CE GFR 03-22-2 41 59- complet (ESTIMA 013 ML/MIN ed LIEN) 16:25 Sodium 136 136-145 complet SerPl-s 013 mmoL/L ed Cnc 16:25 Potassi 2 4.0 3.5-5.1 complet um 013 mmoL/L ed SerPl-s 16:25 Cnc Chlorid 95 98-107 complet e 013 mmoL/L ed SerPl-s 16:25 Cnc CO2 34 21.0-32 complet SerPl-s 013 mmoL/L .0 ed Cnc 16:25 Calcium 8.5 8.5-10. complet 013 mg/dL 1 ed SerPl-m 16:25 Cnc Prot 7.6 6.4-8.2 complet SerPl-m 013 gm/dL ed Cnc 16:25 Albumin 2.8 3.4-5.0 complet 013 gm/dL ed SerPl-m 16:25 Cnc Globuli 4.8 1.3-3.2 complet n 013 gm/dL ed Ser-mCn 16:25 c Albumin 02-15-2 0.6 UNK 1.1-1.8 complet /Glob 013 ed SerPl-m 16:25 Rto Bilirub 0.4 0.2-1.0 complet 013 mg/dL ed SerPl-m 16:25 Cnc AST 22 U/L 15-37 complet SerPl-c 013 ed Cnc 16:25 ALT 28 U/L 30-65 complet SerPl-c 013 ed Cnc 16:25 ALP 02-15-2 94 U/L 50-136 complet SerPl-c 013 ed Cnc 16:25 CBC with AUTO DIFF (02-15-2013 16:25) WBC # 02-15-2 17.6 4.8-10. complet Bld 013 K/MM3 8 ed Auto 16:25 RBC # 02-15-2 3.43 4.2-5.4 complet Bld 013 M/mm3 ed [...] 013 4 ed T 16:25 VOLUME Granulo 02-15-2 90.6 % 37.0-80 complet cytes 013 .0 ed Fr Bld 16:25 Auto LYMPH % 02-15-2 6.1 % 10-50.0 complet 013 ed 16:25 Monocyt 02-15-2 2.5 % 1.7-9.3 complet es Fr 013 ed Bld 16:25 Auto Eosinop -22-2 0.8 % 0.1-12. complet hil Fr 013 0 ed Bld 16:25 Auto Basophi -22-2 0.1 % 0.1-2.0 complet ls Fr 013 ed Bld 16:25 Auto Granulo -22-2 16.0 1.8-7.8 complet cytes # 013 K/mm3 ed Bld 16:25 Auto Lymphoc -22-2 1.1 0.7-4.5 complet ytes Fr 013 K/mm3 ed Bld 16:25 Auto Monocyt 03-22-2 0.4 0.1-1.0 complet es # 013 K/mm3 ed Bld 16:25 Auto Eosinop -22-2 0.1 0.0-0.4 complet hil # 013 K/mm3 ed Bld 16:25 Auto Basophi 03-22-2 0.0 0-0.2 complet ls # 013 K/MM3 ed Bld 16:25 Auto MYCOPLASMA IGM (RAPID) (02-15-2013 16:25) MYCOPLA 03-22-2 NON-ERIKA NONREAC complet SMA IGM 013 CTIVE TIVE ed 16:25 (RAPID) Procedures Procedure DOS Code Location Performer Comment PACKED 99.04 [facility] Jose Martin BA TRANSFUSI ON Encounters Encounter Start End Date Code Location Performer Type Date Emergency VANDANA Caldwell MD (ER) 4 22:34 4 23:43 [facility] Inpatient IMP Ian Philippe MD ([place]) 3 16:01 3 13:40 [facility]
--- OUTSIDE RECORDS SUMMARY | 2017-09-26 03:35 | External Medical Summary Rpt | CCD ---
Author Author MANUEL Address Unknown Phone [email or web address] Purpose Continuity of Care Document - through 2016
--- OUTSIDE RECORDS SUMMARY | 2017-09-26 03:35 | External Medical Summary Rpt | CCD ---
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 [...] may also cause disease. Comment: Performed at: [facility] Comment: [id number], [place] [id number] Comment: Alcohol Rubber: Jean Marie Nino MD, Phone: [phone] Legionella pneumophila 1 Ag [Presence] in Urine [...] Code Location Performer Comment PACKED 99.04 [facility] Jose Martin BA TRANSFUSI ON Encounters Encounter Start End Date Code Location Performer Type Date Emergency VANDANA Caldwell MD (ER) 4 22:34 4 23:43 [facility] Inpatient IMP Ian Philippe MD ([place]) 3 16:01 3 13:40 [facility]
--- OUTSIDE RECORDS SUMMARY | 2017-09-26 03:37 | External Medical Summary Rpt ---
Author Author MANUEL Gallo, [employer] Organization [employer] Address Unknown Phone Unavailable Results Urinalysis dipstick W Reflex Microscopic panel in Urine Observa Value Referen Units Interpr Notes Date tion ce etation Range Appeara CLEAR CLEAR No No No Sep 26 nce of informa informa informa 2016 Urine tion in tion in tion in 2:45 AM source source source data data data Bacteri NONE O No No No Sep 26 a informa informa informa 2016 [Presen tion in tion in tion in 2:45 AM ce] in source source source Urine data data data sedimen t by Light microsc opy Bilirub NEGATIV NEG No No No Sep 26 in E informa informa informa 2016 [Presen tion in tion in tion in 2:45 AM ce] in source source source Urine data data data by Test strip Erythro NEGATIV NEG No No No Sep 26 cytes E informa informa informa 2016 [Presen tion in tion in tion in 2:45 AM ce] in source source source Urine data data data Color YELLOW YELLOW No No No Sep 26 of informa informa informa 2016 Urine tion in tion in tion in 2:45 AM source source source data data data Glucose NEG No No No Sep 26 [Mass/vol informati informati informati 2016 2:45 ume] in on in on in on in AM Urine by source source source Test data data data strip Ketones NEGATIV NEG mg/dL No No Sep 26 E informa informa 2016 [Presen tion in tion in 2:45 AM ce] in source source Urine data data by Automat ed test strip Mucus NEGATIV NEG No No No Sep 26 [Presen E informa informa informa 2016 ce] in tion in tion in tion in 2:45 AM Urine source source source sedimen data data data t by Light microsc opy Nitrite NEGATIV NEG No No No Sep 26 E informa informa informa 2016 [Presen tion in tion in tion in 2:45 AM ce] in source source source Urine data data data by Test strip pH of 5.0 - 8.5 No Normal No Sep 26 Urine informati informati 2017 2:45 on in on in AM source source data data Protein NEG mg/dL No No Sep 26 [Mass/vol informati informati 2017 2:45 ume] in on in on in AM Urine by source source Automated data data test strip Erythro OCC 0 rbc/hpf No No Sep 26 cytes informa informa 2016 [Presen tion in tion in 2:45 AM ce] in source source Urine data data sedimen t by Light microsc opy Specific 1.005 - No Normal No Sep 26 gravity 1.030 informati informati 2017 2:45 of Urine on in on in AM source source data data Epithel NONE 0 - 5 #/hpf No No Sep 26 ial informa informa 2017 cells.s tion in tion in 2:45 AM quamous source source data data [Presen ce] in Urine sedimen t by Microsc opy high power field Urobili 0.2 NEG E.U./dL No No Sep 26 nogen informa informa 2016 [Presen tion in tion in 2:45 AM ce] in source source Urine data data by Test strip Leukocyte O wbc/hpf No No Sep 26 s informati informati 2016 2:45 [#/volume on in on in AM ] in source source Urine data data Urinalysis dipstick W Reflex Microscopic panel in Urine Observa Value Referen Units Interpr Notes Date tion ce etation Range Appeara CLEAR CLEAR No No No Sep 26 nce of informa informa informa 2017 Urine tion in tion in tion in 2:45 AM source source source data data data Bilirub NEGATIV NEG No No No Sep 26 in E informa informa informa 2016 [Presen tion in tion in tion in 2:45 AM ce] in source source source Urine data data data by Test strip Erythro NEGATIV NEG No No No Sep 26 cytes E informa informa informa 2016 [Presen tion in tion in tion in 2:45 AM ce] in source source source Urine data data data Color YELLOW YELLOW No No No Sep 26 of informa informa informa 2017 Urine tion in tion in tion in 2:45 AM source source source data data data Glucose NEG No No No Sep 26 [Mass/vol informati informati informati 2016 2:45 ume] in on in on in on in AM Urine by source source source Test data data data strip Ketones NEGATIV NEG mg/dL No No Sep 26 E informa informa 2016 [Presen tion in tion in 2:45 AM ce] in source source Urine data data by Automat ed test strip Mucus NEGATIV NEG No No No Sep 26 [Presen E informa informa informa 2016 ce] in tion in tion in tion in 2:45 AM Urine source source source sedimen data data data t by Light microsc opy Nitrite NEGATIV NEG No No No Sep 26 E informa informa informa 2016 [Presen tion in tion in tion in 2:45 AM ce] in source source source Urine data data data by Test strip pH of 5.0 - 8.5 No Normal No Sep 26 Urine informati informati 2016 2:45 on in on in AM source source data data Protein NEG mg/dL No No Sep 26 [Mass/vol informati informati 2016 2:45 ume] in on in on in AM Urine by source source Automated data data test strip Specific 1.005 - No Normal No Sep 26 gravity 1.030 informati informati 2016 2:45 of Urine on in on in AM source source data data Urobili 0.2 NEG E.U./dL No No Sep 26 nogen informa informa 2016 [Presen tion in tion in 2:45 AM ce] in source source Urine data data by Test strip Lactate [Moles/volume] in Blood Observa Value Referen Units Interpr Notes Date tion ce etation Range Lactate 0.4 - 2.0 mmol/L Normal No Sep 26 [Moles/vo informati 2017 2:30 lume] in on in AM Blood source data Gas panel in Arterial blood Observa Value Referen Units Interpr Notes Date tion ce etation Range Base -2.4-+2.3 MMOL/L High No Sep 26 excess in informati 2017 2:02 Arterial on in AM blood source data Arteria PATIENT No No No No Sep 26 l UNABLE informa informa informa informa 2017 [...] Low No Oct 31 Arterial 7.45 informati 2016 2:02 blood on in AM source data Oxygen 80 - 100 MMHG Low No Oct 31 [Partial informati 2017 2:02 pressure] on in AM in source Arterial data blood Oxygen 90 - 100 % Low No Oct 31 saturatio informati 2016 2:02 n.calcula on in AM sonia from [...] High No Oct 6 dioxide, 32.0 informati 2017 1:35 total on in PM [Moles/vo source lume] in data Serum or Plasma Creatinin 0.55 - mg/dL High No Oct 6 e 1.02 informati 2016 1:35 [Mass/vol on in PM ume] in source Serum or data Plasma Creatinin 50 - 200 ML/MIN Normal No Aug 6 e renal informati 2016 1:35 clearance on in PM source predicted data by Cockcroft -Gault formula Estimated 59- ML/MIN Low REFERENCE Aug 6 RANGE: 2017 1:35 glomerula >60 PM r ML/MIN/1. filtratio 73 SQUARE n rate METERSIf (GF this patient is -A merican, then multiply theresult by 1.210. Glucose 74 - 106 mg/dL High No Aug 6 [Mass/vol informati 2016 1:35 ume] in on in PM Serum or source Plasma data Potassium 3.5 - 5.1 mmoL/L Normal No Aug 6 informati 2016 1:35 [Moles/vo on in PM lume] in source Serum or data Plasma Sodium 136 - 145 mmoL/L Normal No Sep 01 [Moles/vo informati 2016 1:35 lume] in on in PM Serum or source Plasma data Vancomycin [Mass/volume] in Serum or Plasma --trough Observa Value Referen Units Interpr Notes Date tion ce etation Range DRAWN BY NURSE FROM PICC Vancomyci 10.0 - mcg/mL Normal No Aug 6 n 20.0 informati 2016 1:35 [Mass/vol on in PM ume] in source Serum or data Plasma --trough Legionella pneumophila 1 Ag [Presence] in Urine by Immunoassay Observa Value Referen Units Interpr Notes Date tion ce etation Range Legione Negativ Negativ No No Presump Aug 29 lla e e informa informa tive 2017 [...] med at: BN - [facility] [place] [address] [id number] Directo r: Jean Marie Nino MD, Phone: [phone] Mycoplasma pneumoniae IgM Ab [Presence] in Serum by Immunoassay Observa Value Referen Units Interpr Notes Date tion ce etation Range Mycopla NON-ERIKA NONREAC No No No Aug 3 sma CTIVE TIVE informa informa informa 2017 pneumon tion in tion in tion in 1:24 PM iae IgM source source source Ab data data data [Presen ce] in Serum by Immunoa ssay CBC W Auto Differential panel in Blood Observa Value Referen Units Interpr Notes Date tion ce etation Range Basophils 0 - 0.2 K/MM3 Normal No Aug 29 informati 2016 1:24 [#/volume on in PM ] in source Blood by data Automated count Basophils 0.1 - 2.0 % Normal No Aug 29 /100 informati 2016 1:24 leukocyte on in PM [...] 7.8 K/mm3 Normal No Aug 29 ramesh informati 2016 1:24 [#/volume on in [...] data Hemoglobi 12.2 - g/dL Low No Aug 29 n 16.2 informati 2016 1:24 [Mass/vol on in PM ume] in source Blood data Lymphocyt 0.7 - 4.5 K/mm3 Normal No Aug 29 es informati 2016 1:24 [#/volume on in PM ] in source Unspecifi data ed specimen by Automated count Lymphocyt 10 - 50.0 % Normal No Aug 29 es informati 2016 1:24 [#/volume on in [...] count Erythrocy 82.2 - fl Normal No Oct 3 te mean 97.8 informati 2016 1:24 corpuscul on in PM ar volume source [Entitic data volume] by Automated count Monocytes 0.1 - 1.0 K/mm3 Normal No Oct 3 informati 2016 1:24 [#/volume on in PM ] in source Blood by data Automated count Monocytes 1.7 - 9.3 % Normal No Oct 3 /100 informati 2016 1:24 leukocyte on in PM [...] 59- ML/MIN Low REFERENCE Oct 3 RANGE: 2016 1:24 glomerula >60 PM r ML/MIN/1. filtratio [...] High No Jun 18 excess in informati 2016 3:27 Arterial on in PM blood source data Arteria ACCEPTA No No No No Jun 18 l BLE informa informa informa informa 2017 patency tion in tion in tion in tion in 3:27 PM Wrist source source source source artery data data data data --pre arteria l punctur e Bicarbona 22.0 - MMOL/L High No Jun 18 te 26.0 informati 2016 3:27 [Moles/vo on in PM lume] in source Arterial data blood Oxygen No No No No Jun 18 content informati informati informati informati 2016 3:27 in on in on in on [...] MMHG Low No Jul 14 [Partial informati 2016 3:27 pressure] on in PM in source Arterial data blood Oxygen 90 - 100 % Low alert No Jul 14 saturatio informati 2016 3:27 n.calcula on in PM sonia from source oxygen data partial pressure in Arterial blood SOURCE RIGHT No No No No Jul 14 RADIAL informa informa informa informa 2016 tion [...] % Normal No Jul 14 ls/100 12.0 informati 2016 3:00 leukocyte on in PM s in source Blood by data Automated count Granulocy 1.8 - 7.8 K/mm3 High No Jul 14 ramesh informati 2016 3:00 [#/volume on in PM ] in source Blood by data Automated count Granulocy 37.0 - % High No Jul 14 ramesh/100 80.0 informati 2016 3:00 leukocyte on in PM s in source Blood by data Automated count Hematocri 37.0 - % Low No Jul 14 t [Volume 47.0 informati 2016 3:00 on in PM Fraction] source of Blood data Hemoglobi 12.2 - g/dL Low No Jul 14 n 16.2 informati 2016 3:00 [Mass/vol on in PM ume] in source Blood data Lymphocyt 0.7 - 4.5 K/mm3 Normal No Jun 18 es inform2016 3:00 [#/volume on in PM ] in source Unspecifi data ed specimen by Automated count Lymphocyt 10 - 50.0 % Low No Jun 18 es inform2016 3:00 [#/volume on in PM ] in source Unspecifi data ed specimen by Automated count Erythrocy 27 - 31.2 pg Normal No Jul 14 te mean informati 2016 3:00 corpuscul on in PM ar source hemoglobi data n [Entitic mass] Erythrocy 31.8 - g/dl Normal No Jul 14 te mean 35.4 informati 2016 3:00 corpuscul on in PM ar source hemoglobi data n concentra tion [Mass/vol ume] by Automated count Erythrocy 82.2 - fl Normal No Jul 14 te mean 97.8 inform2016 3:00 corpuscul on in PM ar volume source [Entitic data volume] by Automated count Monocytes 0.1 - 1.0 K/mm3 Normal No Jul 14 inform2016 3:00 [#/volume on in PM ] in source Blood by data Automated count Monocytes 1.7 - 9.3 % Normal No Jun 18 /100 informati 2016 3:00 leukocyte on in PM s in source Blood by data Automated count Platelet 7.4 - fl Low No Jul 14 mean 10.4 inform2016 3:00 volume on in PM [Entitic source volume] data in Blood by Automated count Platelets 142 - 424 K/mm3 No No Jul 14 informati informati 2016 3:00 [#/volume on in on in PM ] in source source Blood data data Erythrocy 4.2 - 5.4 M/mm3 Low No Jun 18 ramesh informati 2016 3:00 [#/volume on in PM ] in source Amniotic data fluid Erythrocy 11.5 - % Normal No Jul 14 te 17.5 informati 2016 3:00 distribut on in PM ion width source [Entitic data volume] by Automated count Leukocyte 4.8 - K/MM3 High No Jun 18 s 10.8 informati 2016 3:00 [#/volume on in PM ] in source Blood data Differential panel, method unspecified - Observa Value Referen Units Interpr Notes Date tion ce etation Range LYMPH 11 10 - 50 % Normal No Aug 18 informa 2017 tion in 3:00 PM source data Monocytes 2 - 9 % Normal No Jun 18 /100 informati 2017 3:00 leukocyte on in PM s in source Blood by data Automated count Platele NORMAL No No No No Jul 14 ts informa informa informa informa 2016 [Presen tion in tion in tion in tion in 3:00 PM ce] in source source source source Blood data data data data by Light microsc opy Neutrophi 42 - 76 % High No Jul 14 ls informati 2016 3:00 [...] U/L Normal No Jul 14 phosphata informati 2017 3:00 se on in PM [Enzymati source [...] 59- ML/MIN Low REFERENCE Jul 14 RANGE: 2016 3:00 glomerula >60 PM r ML/MIN/1. filtratio [...] 3.5 - 5.1 mmoL/L Normal No Jul 14ati 2016 3:00 [Moles/vo on in PM lume] [...] 59- ML/MIN Low REFERENCE Jun 10 RANGE: 2016 7:29 glomerula >60 AM r ML/MIN/1. filtratio [...] - 5.1 mmoL/L Normal No Jun 07 inform2016 2:25 [Moles/vo on in PM lume] in source Serum or data Plasma Sodium 136 - 145 mmoL/L Normal No Jun 07 [Moles/vo informati 2016 2:25 lume] in on in PM Serum or source Plasma data Vancomycin [Mass/volume] in Serum or Plasma --trough Observa Value Referen Units Interpr Notes ti ce etation Range Vancomyci 10.0 - [...] 59- ML/MIN Low REFERENCE Jun 03 RANGE: 2016 6:15 glomerula >60 AM r ML/MIN/1. filtratio [...] MMOL/L High No Jun 02 te 26.0 informati 2016 [Moles/vo on in 10:57 AM lume] in source Arterial data blood Carbon 35.0 - MMHG High Jun 02 dioxide 45.0 2016 [Partial CRITICAL 10:57 AM pressure] RESULTS in Arterial RESU blood LTS CALLED TO: VELMA 06/02/17 1102 [address] on,[place] pH of 7.35 - MMOL/L Normal No Jun 02 Arterial 7.45 inform2016 blood on in 10:57 AM source data Oxygen 80 - 100 MMHG Low No Jun 02 [Partial informati 2017 pressure] on in 10:57 AM in source Arterial data blood Oxygen 90 - 100 % Low No Jun 02 saturatio informati 2016 n.calcula on in 10:57 AM sonia [...] plasma Observa Value Referen Units Interpr Notes ce etation Range Fibrin 0 - 400 [...] Observa Value Referen Units Interpr Notes Date on ce etation Range Natriutie 0 - 100 pg/mL Normal No Jun 02 tic informati 2016 peptide B on in 10:45 AM source [Mass/vol data ume] in Serum or Plasma Cardiac enzymes Observa Value Referen Units Interpr Notes Date tion ce etation Range Creatine 0 - 4.0 [...] mmoL/L Normal No Jun 02 [Moles/vo informati 2017 lume] in on in 10:45 AM Serum or source Plasma data Carbon 21.0 - mmoL/L High No Jun 02 dioxide, 32.0 informati 2017 total on in 10:45 AM [Moles/vo source lume] in data Serum or Plasma Creatinin 0.55 - mg/dL High No Jun 02 e 1.02 informati 2017 [Mass/vol on in 10:45 AM ume] in [...] gm/dL High No Jun 02 [Mass/vol informati 2017 ume] in on in 10:45 AM Serum source data Glucose 74 - 106 mg/dL Normal No Jun 02 [Mass/vol informati 2017 ume] in on in 10:45 AM Serum or source Plasma data Potassium 3.5 - 5.1 mmoL/L Normal No Jun 02 inform2016 [Moles/vo on in 10:45 AM lume] in source Serum or data Plasma Sodium 136 - 145 mmoL/L Normal No Jun 02 [Moles/vo informati 2017 lume] in on in 10:45 AM Serum or source Plasma data Aspartate 15 - 37 U/L Normal No Jun 02 inform2016 aminotran on in 10:45 AM sferase source [Enzymati data c activity/ volume] in Serum or Plasma Alanine 12 - 78 U/L Normal No Jun 02 aminotran inform2016 sferase on in 10:45 AM [Enzymati source c data activity/ volume] in Serum or Plasma Protein 6.4 - 8.2 gm/dL Normal No Jun 02 [Mass/vol informati 2017 ume] in on in 10:45 AM Serum or source Plasma data CBC W Auto Differential panel in Blood Observa Value Referen Units Interpr Notes Date tion ce etation Range Basophils 0 - 0.2 K/MM3 Normal No Jun 02 inform2016 [#/volume on in 10:45 AM ] in source Blood by data Automated count Basophils 0.1 - 2.0 % Normal No Jun 02 /100 inform2016 leukocyte on in 10:45 AM s in source Blood by data Automated count Eosinophi 0.0 - 0.4 K/mm3 Normal No Jun 02 ls ati 2016 [#/volume on in 10:45 AM ] in source Blood by data Automated count Eosinophi 0.1 - % Normal No Jun 02 ls/100 12.0 inform2016 leukocyte on in 10:45 AM s in [...] Low No Jun 02 t [Volume 47.0 ati 2016 on in 10:45 AM Fraction] source of Blood data Hemoglobi 12.2 - g/dL Low No Jun 02 n 16.2 informati 2016 [Mass/vol on in 10:45 AM ume] in source Blood data Lymphocyt 0.7 - 4.5 K/mm3 Normal No Jun 02 es inform2016 [#/volume on in 10:45 AM ] in source Unspecifi data ed specimen by Automated count Lymphocyt 10 - 50.0 % Normal No Jun 02 es inform2016 [#/volume on in 10:45 AM ] in [...] Normal No Jun 02 te mean 97.8 ati 2016 corpuscul on in 10:45 AM ar volume source [Entitic data volume] by Automated count Monocytes 0.1 - 1.0 K/mm3 Normal No May 7 informati 2016 [#/volume on in 10:45 AM ] in source Blood by data Automated count Monocytes 1.7 - 9.3 % Normal No May 7 /100 informati 2017 leukocyte on in 10:45 AM s in source Blood by data Automated count Platelet 7.4 - fl Low No Jun 02 mean 10.4 inform2016 volume on in 10:45 AM [Entitic source volume] data in Blood by Automated count Platelets 142 - 424 K/mm3 Low No Jun 02 informati 2016 [#/volume on in 10:45 AM ] in source Blood data Erythrocy 4.2 - 5.4 M/mm3 Low No Jun 02 ramesh informati 2016 [#/volume on in 10:45 AM ] in source Amniotic data fluid Erythrocy 11.5 - % Normal No Jun 02 te 17.5 informati 2016 distribut on in 10:45 AM ion width source [Entitic data volume] by Automated count Leukocyte 4.8 - K/MM3 Normal No Jun 02 s 10.8 informati 2016 [#/volume on in 10:45 AM ] [...] Plasma Creatinin 0.55 - mg/dL High No May 12 e 1.02 informati 2017 6:13 [Mass/vol on in AM ume] in source Serum or data Plasma Creatinin 50 - 200 ML/MIN Normal No May 12 e renal informati 2017 6:13 clearance on in AM source predicted data by Cockcroft -Gault formula Estimated 59- ML/MIN Low REFERENCE May 12 RANGE: 2016 6:13 glomerula >60 AM r ML/MIN/1. filtratio 73 SQUARE n rate METERSIf (GF this patient is -A merican, then multiply theresult by 1.210. Globulin 1.3 - 3.2 gm/dL High No May 12 [Mass/vol informati 2016 6:13 ume] [...] U/L Normal No May 12 aminotran informati 2017 6:13 sferase on in AM [Enzymati source c data activity/ volume] in Serum or Plasma Protein 6.4 - 8.2 gm/dL Normal No Apr 16 [Mass/vol informati 2017 6:13 ume] in on in AM Serum or source Plasma data CBC W Auto Differential panel in Blood Observa Value Referen Units Interpr Notes Date tion ce etation Range Basophils 0 - 0.2 K/MM3 Normal No Apr 16 informati 2017 6:13 [#/volume on in AM ] in source Blood by data Automated count Basophils 0.1 - 2.0 % Normal No Eddie 16 /100 informati 2017 6:13 leukocyte on in AM s in source Blood by data Automated count Eosinophi 0.0 - 0.4 K/mm3 Normal No Apr 16 ls informati 2016 6:13 [#/volume on in AM ] in source Blood by data Automated count Eosinophi 0.1 - % Normal No Apr 16 ls/100 12.0 informati 2017 6:13 leukocyte on in AM s in source Blood by data Automated count Granulocy 1.8 - 7.8 K/mm3 Normal No Apr 16 ramesh informati 2017 6:13 [#/volume on in AM ] in source Blood by data Automated count Granulocy 37.0 - % High No Apr 16 ramesh/100 80.0 informati 2017 6:13 leukocyte on in AM s in source Blood by data Automated count Hematocri 37.0 - % Low No May 12 t [Volume 47.0 informati 2017 6:13 on in AM Fraction] source of Blood data Hemoglobi 12.2 - g/dL Low No May 12 n 16.2 informati 2017 6:13 [Mass/vol on [...] Erythrocy 31.8 - g/dl Normal No May 12 te mean 35.4 informati 2017 6:13 corpuscul on in AM ar source hemoglobi data n concentra tion [Mass/vol ume] by Automated count Erythrocy 82.2 - fl Normal No Apr 16 te mean 97.8 informati 2017 6:13 corpuscul on in AM ar volume source [Entitic data volume] by Automated count Monocytes 0.1 - 1.0 K/mm3 Normal No Apr 16 informati 2016 6:13 [#/volume on in AM ] in source Blood by data Automated count Monocytes 1.7 - 9.3 % Normal No Apr 16 / informati 2016 6:13 leukocyte on in AM s in source Blood by data Automated count Platelet 7.4 - fl Low No Apr 16 mean 10.4 informati 2016 6:13 volume on in AM [Entitic source volume] data in Blood by Automated count Platelets 142 - 424 K/mm3 Normal No Apr 16 informati 2016 6:13 [#/volume on in AM ] in source Blood data Erythrocy 4.2 - 5.4 M/mm3 Low No Apr 16 ramesh informati 2016 6:13 [#/volume on in AM ] in source Amniotic data fluid Erythrocy 11.5 - % Normal No Apr 16 te 17.5 informati 2016 6:13 distribut on in AM ion width [...] - 2.0 % Normal No Apr 14 informati 2016 9:55 leukocyte on in PM [...] K/mm3 Normal No Apr 14 ramesh informati 2016 9:55 [#/volume on in PM ] in source Blood by data Automated count Granulocy 37.0 - % Normal No Apr 14 ramesh/100 80.0 informati 2017 9:55 leukocyte on in PM s in source Blood by data Automated count Hematocri 37.0 - % Low No Apr 14 t [Volume 47.0 informati 2017 9:55 on in PM Fraction] source of Blood data Hemoglobi 12.2 - g/dL Low No Apr 14 n 16.2 informati 2017 9:55 [Mass/vol on in PM ume] in source Blood data Lymphocyt 0.7 - 4.5 K/mm3 Normal No Apr 14 es informati 2017 9:55 [#/volume on in PM ] in source Unspecifi data ed specimen by Automated count Lymphocyt 10 - 50.0 % Normal No Apr 14 es informati 2017 9:55 [#/volume on in PM ] in source Unspecifi data ed specimen by Automated count Erythrocy 27 - 31.2 pg Normal No Apr 14 te mean informati 2017 9:55 corpuscul on in PM ar source hemoglobi data n [Entitic mass] Erythrocy 31.8 - g/dl Normal No Apr 14 te mean 35.4 informati 2017 9:55 [...] 1.7 - 9.3 % Normal No Eddie 14 /100 informati 2017 9:55 leukocyte on [...] count Leukocyte 4.8 - K/MM3 Normal No Eddie 14 s 10.8 informati 2017 9:55 [#/volume on in PM ] in source Blood data
--- OUTSIDE RECORDS SUMMARY | 2017-09-26 03:37 | External Medical Summary Rpt ---
[...] med at: [facility] - [facility] [place] [address] [id number] Directo r: Jean Maire Nino MD, Phone: [phone] Mycoplasma pneumoniae IgM Ab [Presence] in Serum [...]
[2017-09-26 04:23] LABS: NEUTROPHILS 87 % (42-76)
--- NOTE | 2017-09-26 05:40 | RADIOLOGY REPORT PS360 ---
CHEST-PORTABLE HISTORY: Shortness of breath sob ORDERING PHYSICIAN: Curtis Philippe MD PATIENT AGE: 67 years COMPARISON: 08/29/2017 FINDINGS: Right subclavian central catheter remains present with the tip in region of the SVC. Patchy density is developed in the left mid and lower lung and in the right lower lobe consistent with bilateral pneumonia. There is mild cardiomegaly without failure. Chronic blunting of the left CP angle. Prior osteotomy of the right clavicle with degenerative changes of the shoulders. IMPRESSION: Bilateral pneumonia.
[2017-09-26 07:01] LABS: LYMPH # 0.4 K/mm3 (0.7-4.5); LYMPH % 2.8 % (10-50.0)
--- NOTE | 2017-09-26 07:18 | HISTORY AND PHYSICAL REPORT ---
Demographics: Admit date: 09/26/17 Chief complaint: Somnolent PRIMARY DIAGNOSIS: BILATERAL PNEUMONIA Allergies: Coded Allergies: Sulfa (Sulfonamide Antibiotics) (09/26/17) codeine (09/26/17) hydrocodone (09/26/17) metoclopramide (From REGLAN) (09/26/17) History of present illness: History of present illness: 67-year-old female with severe chronic obstructive pulmonary disease and history of monthly admissions since April for chronic obstructive pulmonary disease exacerbations, acute on chronic respiratory failure, pneumonia presented to the hospital after being found by her daughter early this morning obtunded. Patient was obtunded and febrile on presentation to the emergency department. Workup revealed acute on chronic respiratory failure. Patient has been started on BiPAP and was admitted. Patient still remained somewhat somnolent and cannot answer questions at the time of evaluation. She will open her eyes to tactile and vocal stimulus. This is not the first time patient is presented in such a way with being found early in the morning in a compromised state. Past medical history: Family HX Family Hx Insignificant No Diabetes No CAD No Hypertension No Hyperlipidemia No Cancer No TB Yes Immunization HX DT/Tetanus Unknown Flu 2016-SN Pneumonia Received In Past TB Test in last year Yes Result Negative General CAD? No Angina: No ID: No Hypertension? Yes Hyperlipidemia? No CHF? Yes DVT? No PE? No COPD? Yes Asthma? Yes Anemia? No GERD? Yes Gastric ulcers? Yes GI Bleed? No Hernia? No Thyroid Problems? No Hypothyroidism? No CVA? No Seizures? No Diabetes? No Renal Insuffiency? No UTI? No Stones? No BPH? No GB Disease: Yes Nephritic Syndrome? No Asplenia? No Hepatitis? No Sickle Cell Disease? No Arthritis? Yes Migraines? No Cataracts? Yes Glaucoma? No MRSA? Yes HIV? No TB? No Anxiety? Yes Depression? Yes Cancer? No More? Yes Additional hx: ADRENAL INSUFFIENCY, IGG SUBCLASS Past Surgical HX Previous Surgery?Y [place] Hysterect BACK X 2 PAIN PUMP ABD LEFT [facility] HEART CATH PORT A CATH LEFT HIP Current home meds: Active Scripts Device (Bipap Machine) 1 UNIT XX UD #1 DEV Prov: 07/18/17 Acetylcysteine (Acetylcysteine 20% 4ML) 4 ML IN TID #120 ML Ref 1 Prov: 09/03/17 Reported Medications POTASSIUM CHL (Potassium Chloride) 20 MEQ PO DAILY Guaifenesin 400 MG PO QHS BUDESONIDE/FORMOTEROL FUMARATE (Symbicort 160-4.5 Mcg Inhaler) 2 PUFF IH BID Tiotropium [place] (Spiriva) 1 PUFF IH DAILY Bumetanide 2 MG PO DAILYP PRN DIURETIC Aspirin (Adult Low Dose Aspirin EC) 81 MG PO DAILY PILOCARPINE HCL (Salagen) 7.5 MG PO TID Pantoprazole Sodium (Protonix 40MG TAB) 40 MG PO DAILY ALBUTEROL (Albuterol 0.083% Neb) 3 ML INH Q6H SERTRALINE HCL (Zoloft) 100 MG PO DAILY Ferrous Sulfate (Iron Tablet) 325 MG PO DAILY Pregabalin (Lyrica 25MG) 25 MG PO BID Mirabegron (Myrbetriq) 50 MG PO DAILY Trazodone Hcl (Trazodone HCl) 100 MG PO QHS Cholecalciferol (Vitamin D3) (Vitamin D) 400 UNIT PO DAILY Buspirone Hcl (Buspirone 10MG) 10 MG PO BID Albuterol Sulfate (Proair Hfa) 2 PUFF IH Q4HP PRN BREATHING Montelukast Sodium (Singulair 10MG) 10 MG PO DAILY Ipratropium [place] (Ipratropium 0.5MG Neb Soln) 3 ML INH BID AZELASTINE/FLUTICASONE (Dymista Nasal [place]) 1 SPR NS BID ONDANSETRON HCL (Ondansetron Hydrochloride) 8 MG PO DAILY #90 Device (Oxygen (Concentrator)) 1 UNIT XX UD Ranitidine Hcl (Ranitidine 150MG) 75 MG PO QHS Multivitamin (One Daily Essential) 1 TAB PO DAILY Loratadine (Claritin 10MG) 10 MG PO DAILY POLYETHYLENE GLYCOL (Miralax) 17 GM PO DAILY Acetaminophen 325 MG PO Q4HP PRN PAIN Bacillus Coagulans (Probiotic) 1 EACH PO DAILY Hydrocortisone 5 MG PO QAM Hydrocortisone 2.5 MG PO QHS Social Hx: Smoking HX Tobacco No Packs/day N/A Are you/the child exposed to second-hand smoke: No Alcohol Alcohol: No Hx of Drug Use Drug Use? No Patien't marital status is Patient's support system is fair Review of systems: Constitutional see HPI. Respiratory see HPI. Cardiovascular no symptoms reported Gastrointestinal/Abdominal no symptoms reported Genitourinary no symptoms reported. Musculoskeletal no symptoms reported. Neurological Yes: no symptoms reported. Exam: Lab data for last 24 hours: Laboratory Tests 09/26/17 0640: WBC 12.7 H, RBC 3.44 L, Hgb 10.0 L, Hct 31.3 L, MCV 90.9, RDW 14.8, Plt Count 153, MPV 6.7 L, Gran % 94.4 H, Gran # 11.9 H, Lymphocytes % 2.8 L, Monocytes % 2.5, Eosinophils % 0.2, Basophils % 0.1, Lymphocytes # 0.4 L, Monocytes # 0.3, Eosinophils # 0.0, Basophils # 0.0, PUBS MCHC 32.0, MCH 29.1 09/26/17 0415: Influenza Type A Ag NOT DETECTED, Influenza Type B Ag NOT DETECTED 09/26/17 0245: Urine Color YELLOW, Urine Appearance CLEAR, Urine pH 5.5, Ur Specific [place] 1.025, Urine Protein NEGATIVE, Urine Ketones NEGATIVE, Urine Blood NEGATIVE, Urine Nitrate NEGATIVE, Urine Bilirubin NEGATIVE, Urine Urobilinogen 0.2, Ur Leukocyte Esterase NEGATIVE, Urine RBC OCC, Urine WBC OCC, Ur Squamous Epith Cells NONE, Urine Bacteria NONE, Urine Glucose NEGATIVE 09/26/17 0230: Lactic Acid 1.1 09/26/17 0230: Sodium 141, Potassium 4.3, Chloride 102, Carbon Dioxide 35 H, BUN 23 H, Creatinine 1.2 H, Estimated Creat Clear 63, Estimated GFR (MDRD) 45 L, Glucose 125 H, Calcium 8.5, Total Bilirubin 0.2, AST 21, ALT 26, Alkaline Phosphatase 88, Creatine Kinase 101, CK-MB (CK-2) Rel Index 1.0, CK and CKMB Interp 1.0, Troponin I < 0.02, B-Natriuretic Peptide 17, Total Protein 7.4, Albumin 3.2 L, Globulin 4.2 H, Albumin/Globulin Ratio 0.8 L, WBC 9.8, RBC 3.71 L, Hgb 10.7 L, Hct 33.7 L, MCV 90.9, RDW 14.8, Plt Count 163, MPV 6.6 L, Gran % 86.4 H, Gran # 8.5 H, Total Counted 100, Lymphocytes % 8.6 L, Monocytes % 3.9, Eosinophils % 0.8, Basophils % 0.2, Neutrophils 87 H, Lymphocytes (Manual) 7 L , Lymphocytes # 0.9, Monocytes (Manual) 5, Monocytes # 0.4, Eosinophils # 0.1, Eosinophils # (Manual) 1, Basophils # 0.0, Platelet Estimate NORMAL, PUBS MCHC 31.7 L, MCH 28.9 09/26/17 0202: ABG pH 7.33 L, ABG pCO2 (Temp Corrct 63.5 H, ABG pO2 (Temp Correct 57.2 L, ABG HCO3 32.9 H, ABG Total CO2 34.8 H, ABG O2 Sat (Calculated) 88.5 L, ABG Base Excess 7.0 H, [place] Test PATIENT UNABLE Microbiology 09/26 230 BLOOD: Anaerobic Blood Culture - RECD 09/26 230 BLOOD: Aerobic Blood Culture - RECD 09/26 230 BLOOD: Anaerobic Blood Culture - RECD 09/26 230 BLOOD: Aerobic Blood Culture - RECD Admission vital signs: 1ST Vital Signs Result Date Time Pulse Ox 86 09/26 157 B/P 105/62 09/26 157 O2 Flow Rate 5 09/26 157 Temp 101.0 09/26 157 Pulse 82 09/26 157 Resp 26 09/26 157 O2 Delivery OXYGEN 09/26 457 Additional information: Patient appears comfortable on BiPAP. She will open her eyes to vocal or tactile stimulus. Neck is without any lymphadenopathy. Lungs have diminished breath sounds throughout with fair aeration. Faint rales are heard in the RIGHT lung base. Heart has regular rate and rhythm. Abdomen is soft and nontender. Extremities are warm to the touch. Skin is without lesions. Neurologic exam could not be completed due to patient's somnolence. Plan: Problem List 1. Bilateral pneumonia 2. History of MRSA infection of lungs 3. Chronic respiratory failure with hypoxia, on home O2 therapy 4. Obstructive sleep apnea 5. Acute on chronic respiratory failure with hypoxia and hypercapnia 6. IgG deficiency Plan: Patient's been admitted and placed on Zosyn, Levaquin, and vancomycin due to her history of MRSA. As of this time home medicines will be held due to patient's underlying cognitive status. Await for patient are respond to BiPAP. When she is more awake and alert a PA and lateral chest x-ray will be repeated. Pulmonary will be consult did as well. at 0718
[2017-09-26 07:23] LABS: BUN 25 mg/dL (7-18)
[2017-09-26 07:30] LABS: GFR (ESTIMATED) 41 ML/MIN (59-)
--- NOTE | 2017-09-26 07:44 | PHARMACY CLINIC NOTE ---
Patient Demographics Patient Demographics Admission date: 09/26/17 Date: 09/26/17 Time: 0743 Allergies Coded Allergies: Sulfa (Sulfonamide Antibiotics) (09/26/17) codeine (09/26/17) hydrocodone (09/26/17) metoclopramide (From REGLAN) (09/26/17) HEIGHT- FT: 5 IN: 5.00 K.284 VTE General Information Labs: Laboratory Tests 09/26 09/26 0640 0230 Hematology Hgb (12.2 - 16.2 g/dL) 10.0 L 10.7 L Hct (37.0 - 47.0 %) 31.3 L 33.7 L Plt Count (142 - 424 K/mm3) 153 163 Disclaimer The following section includes nursing documentation that has been pulled in for pharmacy review. Patient's VTE score: 8 Patient's VTE Risk: MOD RISK Clinical trial participant? No VTE prophylaxis NQF [id number] VTE prophylaxis ordered? Yes Type of prophylaxis/treatment: LIEN at 0744
--- NOTE | 2017-09-26 09:23 | RADIOLOGY REPORT PS360 ---
CHEST-PORTABLE HISTORY: Shortness of breath, follow-up pneumonia sob ORDERING PHYSICIAN: Curtis Philippe MD PATIENT AGE: 67 years COMPARISON: Previous exam of the same day FINDINGS: Mediport catheter remains in place. No evidence of CHF. Persistent left lower lobe consolidation/pneumonia with small effusion. Right lower lobe alveolar disease has shown improvement and may been due to atelectatic change/vascular crowding. IMPRESSION: Left lower pneumonia unchanged
--- NOTE | 2017-09-26 10:19 | CONSULT NOTE ---
Pharmacokinetic Consult Date of consult: 09/26/17 Time of consult: 1017 Referring provider: DR. CRUZ Reason for consult: VANCOMYCIN DOSING Allergies: Coded Allergies: Sulfa (Sulfonamide Antibiotics) (09/26/17) codeine (09/26/17) hydrocodone (09/26/17) metoclopramide (From REGLAN) (09/26/17) Home Medications: Active Scripts Device (Bipap Machine) 1 UNIT XX UD #1 DEV Prov: 07/18/17 Acetylcysteine (Acetylcysteine 20% 4ML) 4 ML IN TID #120 ML Ref 1 Prov: 09/03/17 Reported Medications POTASSIUM CHL (Potassium Chloride) 20 MEQ PO DAILY Guaifenesin 400 MG PO QHS BUDESONIDE/FORMOTEROL FUMARATE (Symbicort 160-4.5 Mcg Inhaler) 2 PUFF IH BID Tiotropium [place] (Spiriva) 1 PUFF IH DAILY Bumetanide 2 MG PO DAILYP PRN DIURETIC Aspirin (Adult Low Dose Aspirin EC) 81 MG PO DAILY PILOCARPINE HCL (Salagen) 7.5 MG PO TID Pantoprazole Sodium (Protonix 40MG TAB) 40 MG PO DAILY ALBUTEROL (Albuterol 0.083% Neb) 3 ML INH Q6H SERTRALINE HCL (Zoloft) 100 MG PO DAILY Ferrous Sulfate (Iron Tablet) 325 MG PO DAILY Pregabalin (Lyrica 25MG) 25 MG PO BID Mirabegron (Myrbetriq) 50 MG PO DAILY Trazodone Hcl (Trazodone HCl) 100 MG PO QHS Cholecalciferol (Vitamin D3) (Vitamin D) 400 UNIT PO DAILY Buspirone Hcl (Buspirone 10MG) 10 MG PO BID Albuterol Sulfate (Proair Hfa) 2 PUFF IH Q4HP PRN BREATHING Montelukast Sodium (Singulair 10MG) 10 MG PO DAILY Ipratropium [place] (Ipratropium 0.5MG Neb Soln) 3 ML INH BID AZELASTINE/FLUTICASONE (Dymista Nasal [place]) 1 SPR NS BID ONDANSETRON HCL (Ondansetron Hydrochloride) 8 MG PO DAILY #90 Device (Oxygen (Concentrator)) 1 UNIT XX UD Ranitidine Hcl (Ranitidine 150MG) 75 MG PO QHS Multivitamin (One Daily Essential) 1 TAB PO DAILY Loratadine (Claritin 10MG) 10 MG PO DAILY POLYETHYLENE GLYCOL (Miralax) 17 GM PO DAILY Acetaminophen 325 MG PO Q4HP PRN PAIN Bacillus Coagulans (Probiotic) 1 EACH PO DAILY Hydrocortisone 5 MG PO QAM Hydrocortisone 2.5 MG PO QHS Height (feet): 5 Height (inches): 5.00 Medical History: CAD? No Angina: No NM: No Hypertension? Yes Hyperlipidemia? No CHF? Yes DVT? No PE? No COPD? Yes Asthma? Yes Anemia? No GERD? Yes Gastric ulcers? Yes GI Bleed? No Hernia? No Thyroid Problems? No Hypothyroidism? No CVA? No Seizures? No Diabetes? No Renal Insuffiency? No UTI? No Stones? No BPH? No GB Disease: Yes Nephritic Syndrome? No Asplenia? No Hepatitis? No Sickle Cell Disease? No Arthritis? Yes Migraines? No Cataracts? Yes Glaucoma? No MRSA? Yes HIV? No TB? No Anxiety? Yes Depression? Yes Cancer? No More? Yes Additional hx: ADRENAL INSUFFIENCY, IGG SUBCLASS Labs: Laboratory Tests 09/26/17 0640: WBC 12.7 H, RBC 3.44 L, Hgb 10.0 L, Hct 31.3 L, MCV 90.9, RDW 14.8, Plt Count 153, MPV 6.7 L, Gran % 94.4 H, Gran # 11.9 H, Lymphocytes % 2.8 L, Monocytes % 2.5, Eosinophils % 0.2, Basophils % 0.1, Lymphocytes # 0.4 L, Monocytes # 0.3, Eosinophils # 0.0, Basophils # 0.0, PUBS MCHC 32.0, MCH 29.1 09/26/17 0635: Sodium 141, Potassium 4.3, Chloride 103, Carbon Dioxide 36 H, BUN 25 H, Creatinine 1.3 H, Estimated Creat Clear 61, Estimated GFR (MDRD) 41 L, Glucose 143 H, Calcium 8.4 L, Troponin I < 0.02 09/26/17 0415: Influenza Type A Ag NOT DETECTED, Influenza Type B Ag NOT DETECTED 09/26/17 0245: Urine Color YELLOW, Urine Appearance CLEAR, Urine pH 5.5, Ur Specific [place] 1.025, Urine Protein NEGATIVE, Urine Ketones NEGATIVE, Urine Blood NEGATIVE, Urine Nitrate NEGATIVE, Urine Bilirubin NEGATIVE, Urine Urobilinogen 0.2, Ur Leukocyte Esterase NEGATIVE, Urine RBC OCC, Urine WBC OCC, Ur Squamous Epith Cells NONE, Urine Bacteria NONE, Urine Glucose NEGATIVE 09/26/17229: Lactic Acid 1.1 09/26/17229: Sodium 141, Potassium 4.3, Chloride 102, Carbon Dioxide 35 H, BUN 23 H, Creatinine 1.2 H, Estimated Creat Clear 63, Estimated GFR (MDRD) 45 L, Glucose 125 H, Calcium 8.5, Total Bilirubin 0.2, AST 21, ALT 26, Alkaline Phosphatase 88, Creatine Kinase 101, CK-MB (CK-2) Rel Index 1.0, CK and CKMB Interp 1.0, Troponin I < 0.02, B-Natriuretic Peptide 17, Total Protein 7.4, Albumin 3.2 L, Globulin 4.2 H, Albumin/Globulin Ratio 0.8 L, WBC 9.8, RBC 3.71 L, Hgb 10.7 L, Hct 33.7 L, MCV 90.9, RDW 14.8, Plt Count 163, MPV 6.6 L, Gran % 86.4 H, Gran # 8.5 H, Total Counted 100, Lymphocytes % 8.6 L, Monocytes % 3.9, Eosinophils % 0.8, Basophils % 0.2, Neutrophils 87 H, Lymphocytes (Manual) 7 L , Lymphocytes # 0.9, Monocytes (Manual) 5, Monocytes # 0.4, Eosinophils # 0.1, Eosinophils # (Manual) 1, Basophils # 0.0, Platelet Estimate NORMAL, PUBS MCHC 31.7 L, MCH 28.9 09/26/17 0202: ABG pH 7.33 L, ABG pCO2 (Temp Corrct 63.5 H, ABG pO2 (Temp Correct 57.2 L, ABG HCO3 32.9 H, ABG Total CO2 34.8 H, ABG O2 Sat (Calculated) 88.5 L, ABG Base Excess 7.0 H, [place] Test PATIENT UNABLE Microbiology 09/26 230 BLOOD: Anaerobic Blood Culture - RECD 09/26 230 BLOOD: Aerobic Blood Culture - RECD 09/26 230 BLOOD: Anaerobic Blood Culture - RECD 09/26 230 BLOOD: Aerobic Blood Culture - RECD Problem List: 1. Bacterial pneumonia Chronic Plan: BASED ON PATIENT'S FACTORS AND PAST HX OF VANCOMYCIN DOSING, RECOMMEND AT THIS POINT TO START WITH VANCOMYCIN 1750 MG Q24H. PATIENT ALSO RECEIVING LEVAQUIN AND ZOSYN. PHARMACY WILL FOLLOW DAILY AND ADJUST APPROPRIATE. REJI MURO, PHARMD at 1013
--- NOTE | 2017-09-26 13:17 | CONSULT NOTE ---
Consult Note Note: Reason for consultation: Bilateral pneumonia; acute on chronic respiratory failure Requested by: Dr. Philippe Chief complaint: Ms. Haynes is quite lethargic but when I could awaken her, she told me "I began to ache all over." History of present illness: Ms. Haynes is a 67-year-old woman who has severe chronic obstructive pulmonary disease (chronic bronchitis and emphysema) complicated by chronic respiratory failure and immunoglobulin G subclass deficiency associated with recurrent episodes of pneumonia. When she initially began to take regular therapy with IVIG, recurrent pneumonias almost ceased. However, in the last year or 2, she's had very frequent hospitalizations for acute exacerbations of chronic obstructive pulmonary disease, sometimes precipitated by viral infection and, at others, by changes in mental status with possible aspiration. That appeared to be the case for this admission. I had seen her 3 weeks ago at which time she was slowly recovering from exacerbation and she was quite weak. However, for a long time, chronic pain has limited her as much as dyspnea. She is on a pain pump using morphine and Marcaine and is followed regularly at the [facility] for this. She has obstructive sleep apnea and sleeps with CPAP. She could not give me a very clear history because she kept drifting off but she recalls the development of feverish feeling, chills and diffuse muscle aches beginning either yesterday or early this morning. She was brought here after her daughter called complaining that she was very short winded and vomiting. In hospital, she has responded to intermittent BiPAP therapy and she has been given antibiotics and corticosteroids. She quit smoking a year ago. Past medical history is significant for adrenal insufficiency (Chas's disease ), degenerative disc disease, fibromyalgia, gastroesophageal reflux disease. Social history: She is living with one of her daughters and has her own room there. Review of systems: Apart from the systems mentioned above and the fact that she told me at the last visit that she needed to have her eyes checked because her vision was worsening, the only other positive systems of a 14 point review of systems are: Gastrointestinal, constipation; musculoskeletal, chronic pain and hip, hands, knees and feet; skin, ecchymoses on her forearms; neurological, shooting pains in her feet from time to time; psychiatric, anxiety. Family history is not obtainable today but has been noncontributory in the past. On physical examination, Ms. Haynes is a chronically ill-appearing, mildly cushingoid, overweight woman who was asleep in the bed with her mouth open when I initially came in. After calling her name a couple of times she awakened, recognized me and knew what day it was. She immediately fell back to sleep but was easily awakened for other questions. Vital signs: Blood pressure 115/60, temperature 98.6 (high of 101.1 early this morning), pulse 95, respiratory rate 22 and oxygen saturation 100 percent on 2 L /m by nasal cannula. HEENT: Sclerae clear; conjunctivae pink; EOMs full; pupils are equal, round and reactive to light and accommodation; external nares unremarkable; oral mucosa shows no ulcerations but it is quite dry. Neck: No JVD at 30 degrees elevation. No adenopathy. Chest: Hyperresonance by percussion and apparent symmetrical expansion. Very diminished breath sounds with scattered inspiratory low pitched wheezes. Heart: Muffled heart sounds regular rhythm Abdomen: Protuberant; bowel sounds diminished; soft, nontender and no masses. Skin: No rash but ecchymoses on forearms. Extremities: 1-2+ edema of the lower extremities. No clubbing. I reviewed the recent chest x-ray which does show some crowding of lung markings at the bases but I do not see clear-cut infiltrates. Her white count is normal. I do not believe she had immunoglobulins drawn before her last infusion last week. I had asked for those and hopefully will be able to get them in the future to see whether or not she needs to have her infusion more frequently. Assessment and plan: Ms. Haynes has returned here somnolent in worse respiratory failure. I don't know whether or not these recurrent symptoms are due to one of the drugs she is taking. She is on a very low dose of morphine and Marcaine which should not have much of a systemic effect. I have ordered a drug screen to see if there is any other medication which should not be there. It is possible that she aspirated and has pneumonia causing fever and somnolence. I have ordered a lactate and pro-calcitonin. The fever, somnolence and diffuse myalgias could represent influenza. Although she had the influenza vaccine, she has had subsequent influenza infection in the past causing acute exacerbation of chronic obstructive pulmonary disease. I have ordered a respiratory viral panel. If the pro-calcitonin is normal and blood and respiratory cultures are not helpful and, especially, if obvious pneumonia doesn't develop by chest x-ray, I would stop the antibiotics. Thank you for the opportunity to participate in Ms. Haynes's care. I'll follow up with you by phone and see her in the office. at [phone]
[2017-09-26 14:16] LABS: CORONAVIRUS 229E NOT DETECTED (NOT DETECTE); CORONAVIRUS HKU 1 NOT DETECTED (NOT DETECTE); CORONAVIRUS NL63 NOT DETECTED (NOT DETECTE); CORONAVIRUS OC43 NOT DETECTED (NOT DETECTE); RHINOVIRUS/ENTEROVIRUS NOT DETECTED (NOT DETECTE)
[2017-09-26 15:13] LABS: AMPHETAMINES/METAMPHETAMINES NEGATIVE ng/mL (<1000)
[2017-09-27 04:30] VITALS: BP 131/70
[2017-09-27 06:13] LABS: HEMOGLOBIN 9.3 g/dL (12.2-16.2); LYMPH # 1.2 K/mm3 (0.7-4.5); LYMPH % 14.5 % (10-50.0)
--- NOTE | 2017-09-27 06:20 | ACUTE CARE PROGRESS NOTE (QUA) ---
Progress Notes Subjective Date 09/27/17 Time 0617 Note Patient has several concerns. She did not sleep well and requests her trazodone. She feels swollen from the fluids and steroids that she is on. She feels weak and admits she's had some cramping in both of her legs. Her cough remains productive. Sputum cultures in process. She appears comfortable. Lungs have faint expiratory wheezes. No focal rales. Heart has a regular rate and rhythm. Abdomen is soft and nontender but obese. Extremities have 1-2+ edema. DC IV fluids. Add patient's oral Bumex. Daily weights. Continue steroids and antibiotics until cultures have returned. I'm going to hold the patient's trazodone because of the compromise states she was in upon admission. I'm not sure long-term sleeping medicines are the best thing for her. Objective Findings Last VS-Temp:97.9 B/P:131/70 Pulse:94 Resp:18 SaO2:98 OXYGEN Last weight lbs:216 oz:8 K.203 Method:Bed Scales Laboratory Tests 09/27/17 0525: Sodium 139, Potassium 3.9, Chloride 103, Carbon Dioxide 33 H, BUN 19 H, Creatinine 1.2 H, Estimated Creat Clear 67, Estimated GFR (MDRD) 45 L, Glucose 117 H, Calcium 8.1 L 09/26/17 1345: Lactic Acid 1.9, Chlamy pneum (TEM-PCR) NOT DETECTED, Adenovirus (PCR) NOT DETECTED, B. pertussis DNA (PCR) NOT DETECTED, Coronavirus OC43 (PCR) NOT DETECTED, Coronavirus HKU1 (PCR) NOT DETECTED, Coronavirus 229E (PCR) NOT DETECTED, Coronavirus NL63 (PCR) NOT DETECTED, Human Metapneumovir PCR NOT DETECTED, Influenza A (H1) PCR NOT DETECTED, Influ A (H1N1/09) PCR NOT DETECTED, Influenza A (H3) PCR NOT DETECTED, Influenza Type A (PCR) NOT DETECTED, Influenza Type B (PCR) NOT DETECTED, M. pneumoniae (PCR) NOT DETECTED, Parainfluenza 1 (PCR) NOT DETECTED, Parainfluenza 2 (PCR) NOT DETECTED, Parainfluenza 3 (PCR) NOT DETECTED, Parainfluenza 4 (PCR) NOT DETECTED, RSV (PCR ) NOT DETECTED, Entero/Rhino (PCR) NOT DETECTED 09/26/17 0640: WBC 12.7 H, RBC 3.44 L, Hgb 10.0 L, Hct 31.3 L, MCV 90.9, RDW 14.8, Plt Count 153, MPV 6.7 L, Gran % 94.4 H, Gran # 11.9 H, Lymphocytes % 2.8 L, Monocytes % 2.5, Eosinophils % 0.2, Basophils % 0.1, Lymphocytes # 0.4 L, Monocytes # 0.3, Eosinophils # 0.0, Basophils # 0.0, PUBS MCHC 32.0, MCH 29.1 09/26/17 0635: Sodium 141, Potassium 4.3, Chloride 103, Carbon Dioxide 36 H, BUN 25 H, Creatinine 1.3 H, Estimated Creat Clear 61, Estimated GFR (MDRD) 41 L, Glucose 143 H, Calcium 8.4 L, Troponin I < 0.02 Microbiology 09/26 1120 SPUTUM: Sputum Culture - RES 09/26 1120 SPUTUM: Gram Stain - RES 09/26 1115 SPUTUM: Organism ID (Sequencing 2)([id number]) - ORD Assessment/Plan Problem List 1. Bilateral pneumonia Assessment/Plan: Suspected 2. History of MRSA infection of lungs 3. Chronic respiratory failure with hypoxia, on home O2 therapy 4. Obstructive sleep apnea 5. Acute on chronic respiratory failure with hypoxia and hypercapnia 6. IgG deficiency Patient condition Stable Plan: continue current care, make medication changes This inpt stay is expected to cross 2 MNs from start of care Yes at 0619
[2017-09-27 07:36] VITALS: BP 153/75
[2017-09-27 08:31] VITALS: BP 153/75
[2017-09-27 15:46] VITALS: BP 134/67
[2017-09-27 19:46] VITALS: BP 143/77
[2017-09-27 20:15] VITALS: BP 143/77
[2017-09-28 04:30] VITALS: BP 141/72
--- NOTE | 2017-09-28 07:48 | ACUTE CARE PROGRESS NOTE (QUA) ---
Progress Notes Subjective Date 09/28/17 Time 0747 Note Patient has no new complaints today. Her cough remains quite loose and productive of yellowish-green sputum. Sputum culture has grown MRSA. She appears comfortable and near baseline. Lung exam has faint expiratory wheezes but no focal rales this morning. Cough is very loose. Heart has regular rate and rhythm. Continue vancomycin and discontinue Levaquin and Zosyn. PT eval today. Restart patient's trazodone. Repeat PA and lateral chest x-ray Objective Findings Last VS-Temp:98.4 B/P:141/72 Pulse:84 Resp:20 SaO2:93 OXYGEN Last weight lbs:214 oz:4 K.182 Method:Bed Scales Assessment/Plan Problem List 1. Bilateral pneumonia 2. History of MRSA infection of lungs 3. Chronic respiratory failure with hypoxia, on home O2 therapy 4. Obstructive sleep apnea 5. Acute on chronic respiratory failure with hypoxia and hypercapnia 6. IgG deficiency Patient condition Stable Plan: continue current care This inpt stay is expected to cross 2 MNs from start of care Yes at 0748
[2017-09-28 07:52] VITALS: BP 131/49
[2017-09-28 09:00] VITALS: BP 131/49
--- NOTE | 2017-09-28 10:24 | RADIOLOGY REPORT PS360 ---
CHEST(2 VIEWS-NOT PORTABLE) HISTORY: Pneumonia progress/confirmation study of possible pneumonia ORDERING PHYSICIAN: Curtis Philippe MD PATIENT AGE: 67 years COMPARISON: 09/26/2017 FINDINGS: The cardiomediastinal silhouette and pulmonary vascularity are within normal limits. Consolidation once again noted within the lingula and left lower lobe but appear somewhat improved compared to the previous exam. No new areas of consolidation. Right subclavian Mediport catheter tip in region of the SVC.. Old right clavicular fracture IMPRESSION: Improving lingular and left lower lobe pneumonia
[2017-09-28 15:59] VITALS: BP 155/88
[2017-09-28 19:38] VITALS: BP 137/71
[2017-09-28 20:35] VITALS: BP 137/71
[2017-09-29] VITALS (7 sets, daily range): BP systolic 120–155; BP diastolic 68–83
--- NOTE | 2017-09-29 07:20 | ACUTE CARE PROGRESS NOTE (QUA) ---
Progress Notes Subjective Date 09/29/17 Time 0718 Note Patient states she's feeling better. Chest x-ray yesterday confirmed LEFT lower lobe pneumonia as well as LEFT lingular pneumonia. Sputum cultures growing MRSA. Patient had physical therapy evaluation. Physical therapy did not feel like the patient needed inpatient physical therapy. Patient is awake and alert. Lung exam reveals distant breath sounds with faint expiratory wheezes but no focal rales. Heart has regular rate and rhythm. Continue IV vancomycin. Transition to oral steroids. Patient does well with the transition to oral steroid she will be discharged tomorrow to continue total of 10 days of IV antibiotics with vancomycin Objective Findings Last VS-Temp:97.7 B/P:146/79 Pulse:71 Resp:21 SaO2:96 OXYGEN Last weight lbs:212 oz:4 K.275 Method:Bed Scales Laboratory Tests 09/28/17 2045: Vancomycin Trough 17.4 Assessment/Plan Problem List 1. Bilateral pneumonia 2. History of MRSA infection of lungs 3. Chronic respiratory failure with hypoxia, on home O2 therapy 4. Obstructive sleep apnea 5. Acute on chronic respiratory failure with hypoxia and hypercapnia 6. IgG deficiency Patient condition Improving Plan: continue current care This inpt stay is expected to cross 2 MNs from start of care Yes at 0719
--- NOTE | 2017-09-29 08:37 | CONSULT NOTE ---
Pharmacokinetic Consult Date of consult: 09/29/17 Time of consult: 834 Referring provider: DR. CRUZ Reason for consult: VANCOMYCIN TROUGH LEVEL Allergies: Coded Allergies: Sulfa (Sulfonamide Antibiotics) (09/26/17) codeine (09/26/17) hydrocodone (09/26/17) metoclopramide (From REGLAN) (09/26/17) Home Medications: Active Scripts Device (Bipap Machine) 1 UNIT XX UD #1 DEV Prov: 07/18/17 Acetylcysteine (Acetylcysteine 20% 4ML) 4 ML IN TID #120 ML Ref 1 Prov: 09/03/17 Reported Medications POTASSIUM CHL (Potassium Chloride) 20 MEQ PO DAILY Guaifenesin 400 MG PO QHS BUDESONIDE/FORMOTEROL FUMARATE (Symbicort 160-4.5 Mcg Inhaler) 2 PUFF IH BID Tiotropium [place] (Spiriva) 1 PUFF IH DAILY Bumetanide 2 MG PO DAILYP PRN DIURETIC Aspirin (Adult Low Dose Aspirin EC) 81 MG PO DAILY PILOCARPINE HCL (Salagen) 7.5 MG PO TID Pantoprazole Sodium (Protonix 40MG TAB) 40 MG PO DAILY ALBUTEROL (Albuterol 0.083% Neb) 3 ML INH Q6H SERTRALINE HCL (Zoloft) 100 MG PO DAILY Ferrous Sulfate (Iron Tablet) 325 MG PO DAILY Pregabalin (Lyrica 25MG) 25 MG PO BID Mirabegron (Myrbetriq) 50 MG PO DAILY Trazodone Hcl (Trazodone HCl) 100 MG PO QHS Cholecalciferol (Vitamin D3) (Vitamin D) 400 UNIT PO DAILY Buspirone Hcl (Buspirone 10MG) 10 MG PO BID Albuterol Sulfate (Proair Hfa) 2 PUFF IH Q4HP PRN BREATHING Montelukast Sodium (Singulair 10MG) 10 MG PO DAILY Ipratropium [place] (Ipratropium 0.5MG Neb Soln) 3 ML INH BID AZELASTINE/FLUTICASONE (Dymista Nasal [place]) 1 SPR NS BID ONDANSETRON HCL (Ondansetron Hydrochloride) 8 MG PO DAILY #90 Device (Oxygen (Concentrator)) 1 UNIT XX UD Ranitidine Hcl (Ranitidine 150MG) 75 MG PO QHS Multivitamin (One Daily Essential) 1 TAB PO DAILY Loratadine (Claritin 10MG) 10 MG PO DAILY POLYETHYLENE GLYCOL (Miralax) 17 GM PO DAILY Acetaminophen 325 MG PO Q4HP PRN PAIN Bacillus Coagulans (Probiotic) 1 EACH PO DAILY Hydrocortisone 5 MG PO QAM Hydrocortisone 2.5 MG PO QHS Height (feet): 5 Height (inches): 5.00 Medical History: CAD? No Angina: No MA: No Hypertension? Yes Hyperlipidemia? No CHF? Yes DVT? No PE? No COPD? Yes Asthma? Yes Anemia? No GERD? Yes Gastric ulcers? Yes GI Bleed? No Hernia? No Thyroid Problems? No Hypothyroidism? No CVA? No Seizures? No Diabetes? No Renal Insuffiency? No UTI? No Stones? No BPH? No GB Disease: Yes Nephritic Syndrome? No Asplenia? No Hepatitis? No Sickle Cell Disease? No Arthritis? Yes Migraines? No Cataracts? Yes Glaucoma? No MRSA? Yes HIV? No TB? No Anxiety? Yes Depression? Yes Cancer? No More? Yes Additional hx: ADRENAL INSUFFIENCY, IGG SUBCLASS Labs: Laboratory Tests 09/28/172044: Vancomycin Trough 17.4 Problem List: 1. Bacterial pneumonia Chronic Plan: BASED ON VANCOMYCIN TROUGH LEVEL OF 17.4 MCG/ML, RECOMMEND CONTINUING WITH CURRENT DOSE OF VANCOMYCIN 1750 MG Q24H AT THIS TIME. PHARMACY WILL FOLLOW DAILY AND ADJUST APPROPRIATE. REJI MURO PHARMD at 0837
--- NOTE | 2017-09-29 08:59 | ACUTE CARE PROGRESS NOTE (QUA) ---
Progress Notes Subjective Date 09/29/17 Time 0858 Assessment/Plan Problem List 1. Bilateral pneumonia 2. History of MRSA infection of lungs 3. Chronic respiratory failure with hypoxia, on home O2 therapy 4. Obstructive sleep apnea 5. Acute on chronic respiratory failure with hypoxia and hypercapnia 6. IgG deficiency This inpt stay is expected to cross 2 MNs from start of care Yes Antibiotic Stewardship (2) Current Culture Results Microbiology 09/26 112 SPUTUM: Sputum Culture - COMP STAPHYLOCOCCUS AUREUS 09/26 112 SPUTUM: Gram Stain - COMP 09/26 1115 SPUTUM: Organism ID (Sequencing 2)([id number]) - ORD 09/26 0230 BLOOD: Anaerobic Blood Culture - RES 09/26 0230 BLOOD: Aerobic Blood Culture - RES Infxn that will respond? Yes Right drug,dose,and route? Yes More targeted antbx? No at 0858
[2017-09-30] VITALS (7 sets, daily range): BP systolic 113–163; BP diastolic 64–87
--- NOTE | 2017-09-30 07:11 | Discharge Summary ---
Demographics Admit date: 09/26/17 Discharge date: 09/30/17 Discharge diagnoses Problem List 1. Bilateral pneumonia 2. History of MRSA infection of lungs 3. Chronic respiratory failure with hypoxia, on home O2 therapy 4. Obstructive sleep apnea 5. Acute on chronic respiratory failure with hypoxia and hypercapnia 6. IgG deficiency History of present illness History of present illness 67-year-old female with severe chronic obstructive pulmonary disease and history of monthly admissions since April for chronic obstructive pulmonary disease exacerbations, acute on chronic respiratory failure, pneumonia presented to the hospital after being found by her daughter early this morning obtunded. Patient was obtunded and febrile on presentation to the emergency department. Workup revealed acute on chronic respiratory failure. Patient has been started on BiPAP and was admitted. Patient still remained somewhat somnolent and cannot answer questions at the time of evaluation. She will open her eyes to tactile and vocal stimulus. This is not the first time patient is presented in such a way with being found early in the morning in a compromised state. On initial day of admission patient was admitted with depressed mental status. Patient was admitted and placed on BiPAP, broad-spectrum antibiotics, steroids.. At around 4:00 PM patient awakened and was lucid, oriented to person place and time. Broad-spectrum antibiotics have been started. Initial chest x-ray was interpreted as bilateral pneumonia. Repeat chest x-ray the following day on September 27 was interpreted as LEFT lower lobe pneumonia. Pulmonary consultation was obtained is Dr. Thompson is familiar with the patient. He recommended continuing broad-spectrum antibiotic coverage until cultures were available. Patient's sputum culture ultimately grew MRSA. Broad-spectrum antibiotics were discontinued and patient was continued on her vancomycin. Repeat chest x-ray performed on September 28 confirmed LEFT lower lobe pneumonia and a questionable lingular pneumonia. Physical therapy was consult to evaluate the patient and they felt like the patient was appropriate for home. detention was investigated but no beds were available locally. Patient improved a little each day. Sputum went from thick green to a light green and intermittently clear. Patient's lung exam with from poor aeration with rales to fair aeration with end expiratory wheezing. Patient continued to have a loose cough and will restart N- acetylcysteine aerosols once she returns home. Decision was made that patient will complete a 10 day course of IV vancomycin. Patient receives vancomycin once daily. On September 30 after receiving her dose of vancomycin the patient was discharged home. She will return as an outpatient to receive infusion of IV vancomycin with her last dose being on October 15. Patient was discharged home in stable condition. She will follow-up with me on October 06 Medications Medications: Discharge meds are as noted. Follow up Follow up in office in: October 06 with: Curtis Philippe MD
[2017-09-30] MEDS ORDERED: PREDNISONE 20MG20 MG PO (07:12)
== END 2017-09-30 20:29 | disposition home or self-care (01) | DRG 193 ==
LOC: ER 01:54 → 2ND 03:29
PROVIDERS: Emergency Medicine; Internal Medicine
DX: J18.9 Pneumonia, unspecified organism (principal); J96.21 Acute and chronic respiratory failure with hypoxia; D80.3 Selective deficiency of immunoglobulin G [IgG] subclasses; J44.9 Chronic obstructive pulmonary disease, unspecified; Z99.81 Dependence on supplemental oxygen; E27.1 Primary adrenocortical insufficiency; J96.22 Acute and chronic respiratory failure with hypercapnia; Z86.14 Personal history of Methicillin resistant Staphylococcus aureus infection; I10 Essential (primary) hypertension
CPT/HCPCS: J2543; J3370

== ENCOUNTER 2017-10-02 14:25 | Outpatient (CLI) | payer MEDICARE ==
[2017-10-02 14:25] VITALS: BP 134/78
[2017-10-02 15:33] LABS: BUN 23 mg/dL (7-18)
[2017-10-02 15:37] LABS: GFR (ESTIMATED) 41 ML/MIN (59-)
--- NOTE | 2017-10-02 15:53 | CONSULT NOTE ---
Pharmacokinetic Consult Date of consult: 10/02/17 Time of consult: 1525 Referring provider: DR. CRUZ Reason for consult: VANCOMYCIN LEVEL AND DOSE CHANGE Allergies: Coded Allergies: Sulfa (Sulfonamide Antibiotics) (09/26/17) codeine (09/26/17) hydrocodone (09/26/17) metoclopramide (From REGLAN) (09/26/17) Home Medications: Active Scripts Device (Bipap Machine) 1 UNIT XX UD #1 DEV Prov: 07/18/17 Acetylcysteine (Acetylcysteine 20% 4ML) 4 ML IN TID #120 ML Ref 1 Prov: 09/03/17 Prednisone (Prednisone 20MG) 2 TABS PO DAILY #14 TAB Prov: 09/30/17 Reported Medications POTASSIUM CHL (Potassium Chloride) 20 MEQ PO DAILY Guaifenesin 400 MG PO QHS BUDESONIDE/FORMOTEROL FUMARATE (Symbicort 160-4.5 Mcg Inhaler) 2 PUFF IH BID Tiotropium [place] (Spiriva) 1 PUFF IH DAILY Bumetanide 2 MG PO DAILYP PRN DIURETIC Aspirin (Adult Low Dose Aspirin EC) 81 MG PO DAILY PILOCARPINE HCL (Salagen) 7.5 MG PO TID Pantoprazole Sodium (Protonix 40MG TAB) 40 MG PO DAILY ALBUTEROL (Albuterol 0.083% Neb) 3 ML INH Q6H SERTRALINE HCL (Zoloft) 100 MG PO DAILY Ferrous Sulfate (Iron Tablet) 325 MG PO DAILY Pregabalin (Lyrica 25MG) 25 MG PO BID Mirabegron (Myrbetriq) 50 MG PO DAILY Trazodone Hcl (Trazodone HCl) 100 MG PO QHS Cholecalciferol (Vitamin D3) (Vitamin D) 400 UNIT PO DAILY Buspirone Hcl (Buspirone 10MG) 10 MG PO BID Albuterol Sulfate (Proair Hfa) 2 PUFF IH Q4HP PRN BREATHING Montelukast Sodium (Singulair 10MG) 10 MG PO DAILY Ipratropium [place] (Ipratropium 0.5MG Neb Soln) 3 ML INH BID AZELASTINE/FLUTICASONE (Dymista Nasal [place]) 1 SPR NS BID ONDANSETRON HCL (Ondansetron Hydrochloride) 8 MG PO DAILY #90 Device (Oxygen (Concentrator)) 1 UNIT XX UD Ranitidine Hcl (Ranitidine 150MG) 75 MG PO QHS Multivitamin (One Daily Essential) 1 TAB PO DAILY Loratadine (Claritin 10MG) 10 MG PO DAILY POLYETHYLENE GLYCOL (Miralax) 17 GM PO DAILY Acetaminophen 325 MG PO Q4HP PRN PAIN Bacillus Coagulans (Probiotic) 1 EACH PO DAILY Hydrocortisone 5 MG PO QAM Hydrocortisone 2.5 MG PO QHS Height (feet): 5 Height (inches): 5.00 Medical History: CAD? No Angina: No AR: No Hypertension? Yes Hyperlipidemia? No CHF? Yes DVT? No PE? No COPD? Yes Asthma? Yes Anemia? No GERD? Yes Gastric ulcers? Yes GI Bleed? No Hernia? No Thyroid Problems? No Hypothyroidism? No CVA? No Seizures? No Diabetes? No Renal Insuffiency? No UTI? No Stones? No BPH? No GB Disease: Yes Nephritic Syndrome? No Asplenia? No Hepatitis? No Sickle Cell Disease? No Arthritis? Yes Migraines? No Cataracts? Yes Glaucoma? No MRSA? Yes HIV? No TB? No Anxiety? Yes Depression? Yes Cancer? No More? Yes Additional hx: ADRENAL INSUFFIENCY, IGG SUBCLASS Labs: Laboratory Tests 10/02/17 1417: Sodium 140, Potassium 3.5, Chloride 100, Carbon Dioxide 35 H, BUN 23 H, Creatinine 1.3 H, Estimated GFR (MDRD) 41 L, Glucose 154 H, Calcium 8.4 L, Vancomycin Trough 29.9 H Problem List: 1. MRSA pneumonia Plan: BASED ON PATIENT'S VANCOMYCIN TROUGH LEVEL OF 29.9 MCG/ML, RECOMMEND HOLDING VANCOMYCIN DOSE TODAY AND RESTARTING TOMORROW AT 1250 MG Q24H. PHARMACY WILL FOLLOW DAILY AND ADJUST APPROPRIATE. REJI MURO, PHARMD at [id number]
== END 2017-10-02 15:50 | disposition home or self-care (01) ==
LOC: COP 14:25
PROVIDERS: Family Medicine
DX: J15.212 Pneumonia due to Methicillin resistant Staphylococcus aureus (principal)
CPT/HCPCS: J1642

== ENCOUNTER 2017-10-03 11:00 | Outpatient (CLI) | payer MEDICARE ==
[2017-10-03 11:28] VITALS: BP 150/57
[2017-10-03 11:58] VITALS: BP 146/54
[2017-10-03 12:28] VITALS: BP 152/58
[2017-10-03 12:58] VITALS: BP 146/54
[2017-10-03 13:28] VITALS: BP 149/57
[2017-10-03 13:50] VITALS: BP 152/59
== END 2017-10-03 14:00 | disposition home or self-care (01) ==
LOC: COP 11:00
DX: J15.212 Pneumonia due to Methicillin resistant Staphylococcus aureus (principal)
CPT/HCPCS: J1642; J3370

== ENCOUNTER 2017-10-04 11:02 | Outpatient (CLI) | payer MEDICARE ==
[2017-10-04 11:33] VITALS: BP 148/65
[2017-10-04 12:03] VITALS: BP 141/62
[2017-10-04 12:33] VITALS: BP 148/62
[2017-10-04 13:03] VITALS: BP 139/67
[2017-10-04 13:40] VITALS: BP 140/68
== END 2017-10-04 14:15 | disposition home or self-care (01) ==
LOC: COP 11:02
DX: J15.212 Pneumonia due to Methicillin resistant Staphylococcus aureus (principal)
CPT/HCPCS: J1642; J3370

== ENCOUNTER 2017-10-05 13:45 | Outpatient (CLI) | payer MEDICARE ==
[2017-10-05 13:45] VITALS: BP 153/79
[2017-10-05 14:58] VITALS: BP 159/74
[2017-10-05 15:30] VITALS: BP 148/77
[2017-10-05 16:25] VITALS: BP 146/96
== END 2017-10-05 16:29 | disposition home or self-care (01) ==
LOC: COP 13:45
DX: J15.212 Pneumonia due to Methicillin resistant Staphylococcus aureus (principal)
CPT/HCPCS: J1642; J3370

== ENCOUNTER → 2017-10-06 | Outpatient (CLI) | payer MEDICARE | LOC: LAB 13:04 | DX: J15.212 Pneumonia due to Methicillin resistant Staphylococcus aureus (principal) ==

== ENCOUNTER 2017-10-27 10:40 | Outpatient (CLI) | payer MEDICARE ==
[2017-10-27 11:40] VITALS: BP 144/66
[2017-10-27 12:10] VITALS: BP 138/69
[2017-10-27 12:40] VITALS: BP 140/68
[2017-10-27 13:10] VITALS: BP 139/67
[2017-10-27 13:20] VITALS: BP 142/65
--- NOTE | 2017-10-27 15:49 | RADIOLOGY REPORT PS360 ---
HIP LT 2-3V W/PELVIS IF PERFOR HISTORY: LEFT HIP PAIN ORDERING PHYSICIAN: RASHEL MADRIGAL MD PATIENT AGE: 67 years COMPARISON: 12/04/2016 KUB FINDINGS: There has been prior ORIF of the left intertrochanteric hip fracture. There is a gamma nail with short intramedullary jn present. There is fracture of the proximal screw of the sideplate in the proximal femur. The head of the screw is somewhat withdrawn and slightly obliqued. A longitudinal screw is present from the greater trochanter projected toward the femoral head. A prominent zone of lucency is present around this screw laterally consistent with loosening or infection. There is also mild prominence on of lucency along the gamma nail superiorly. There remains lucency along the intertrochanteric region consistent with incomplete bony union. IMPRESSION: 1. Prior ORIF of the left hip. There is a prominent zone of lucency around the superior screw in the intertrochanteric region consistent with loosening of the screw or infection 2. Fractured stabilizing screw of the bony sideplate of the gamma nail with lucency along superior aspect of the decompression screw which may represent loosening or infection
[2017-10-30 18:36] LABS: IgG, Subclass 1 412 mg/dL (248-810); IgG, Subclass 2 188 mg/dL (130-555); IgG, Subclass 3 26 mg/dL (15-102); IgG, Subclass 4 13 mg/dL (2-96); Immunoglobulin G, Qn 658 mg/dL (700-1600)
== END 2017-10-27 13:30 | disposition home or self-care (01) ==
LOC: COP 10:40
PROVIDERS: Family Medicine
DX: D80.3 Selective deficiency of immunoglobulin G [IgG] subclasses (principal); M25.552 Pain in left hip
CPT/HCPCS: J1459; J1642

== ENCOUNTER → 2017-10-31 | Outpatient (CLI) | payer MEDICARE | LOC: LAB 16:21 | DX: J44.0 Chronic obstructive pulmonary disease with (acute) lower respiratory infection (principal) ==